=== PATIENT | female | born 1945 | race Two or more races ===

== ENCOUNTER 2018-05-22 11:51 | Inpatient (IN) | payer MEDICARE, OTHER ==
[~2018-05-22] VITALS: Ht 152.4 cm; Wt 76.7 kg
[~2018-05-22 11:51] MED LIST: ASPI325T11 PO; CARV6.2511 PO; DICY10CA3 PO; ESOM40CA PO; FURO40TA4 PO; LEVO100T5 PO; POTA20TA84 PO; PRED5TAB PO; SIMV40TA3 PO; TRAM50TA PO
[2018-05-22 12:55] LABS: BILIRUBIN,URINE NEGATIVE (NEG); CLARITY,URINE CLEAR; COLOR,URINE YELLOW; NITRITE,URINE NEGATIVE (NEG); PROTEIN,URINE NEGATIVE (NEG-TRACE); UROBILINOGEN,URINE 0.2 mg/dL (0.2 mg/dL)
[2018-05-22] MEDS ORDERED: IPRATRPIUM/ALBUTEROL 0.5/2.5MG 3 ML NEBU. NEB ONE (13:00)
[2018-05-22] MEDS ORDERED: ACETAMINOPHEN 500 MG TABLET PO ONE (13:00)
[2018-05-22 13:12] LABS: BACTERIA,URINE 0 /HPF (0-FEW); RBC,URINE >40 /HPF (0-2); SQUAMOUS EPITHELIAL CELL,UR MOD /LPF; WBC,URINE 0 /HPF (0-4)
--- NOTE | 2018-05-22 13:21 | RAD ---
AP and Lateral Views of the Chest 05/22/2018 12:45 PM Indication: COUGH, SHORT OF AIR, FEVER Comparison: Chest radiograph January 18, 2017 Findings: Diffuse interstitial thickening, increased from prior exam noted. Mild central vascular congestion apical lucency may be present. Mild peribronchial cuffing is present. No focal consolidative infiltrate is seen. Heart size is top normal. No pneumothorax or definitive effusion is seen. No acute osseous changes identified. IMPRESSION: Interval diffuse increase in interstitial thickening. Findings could represent progression of interstitial disease, superimposed edema, or interstitial pneumonia. Radiographic follow-up recommended. Electronically signed by: Urbano Orr MD (05/22/2018 1:17 PM) [id number]
--- NOTE | 2018-05-22 13:30 | PHYS DOC ---
Past Medical History Past Medical History: CHF, GERD, High Cholesterol, Heart Disease, Hypertension , Other Additional Past Medical Histor: Thyroid Past Surgical History: No Surgical History Alcohol Use: None Drug Use: None Adult General Chief Complaint Chief Complaint: COUGH HPI HPI Patient is a 72 year old female presented to ER today for evaluation of cough, congestion, fever and chill for about 5 days. Patient also complaint of body ache. She denies any abdominal pain, no chest pain, no nausea vomiting. Patient went to see her family doctor today, who sent here for evaluation. Patient complaintS of flulike symptoms, jointS pain. She denies any headache. Review of Systems Review of Systems Constitutional: POSITIVE FOR fever or chills [] Eyes: Denies change in visual acuity, redness, or eye pain [] HENT: Denies nasal congestion or sore throat [] Respiratory: positive for cough and shortness of breath [] Cardiovascular: No additional information not addressed in HPI [] GI: Denies abdominal pain, nausea, vomiting, bloody stools or diarrhea [] : Denies dysuria or hematuria [] Musculoskeletal: POSITIVE FOR JOINT PAIN AND BODYACHE. Integument: Denies rash or skin lesions [] Neurologic: Denies headache, focal weakness or sensory changes [] Endocrine: Denies polyuria or polydipsia [] All other systems were reviewed and found to be within normal limits, except as documented in this note. Current Medications Current Medications Current Medications Medications (Trade) Dose Ordered Sig/Kailey Start Time Stop Time Status Last Admin Dose Admin Acetaminophen (Tylenol) 650 mg PRN Q4HRS PRN 05/22/18 15:00 05/23/18 14:59 UNV Albuterol/ Ipratropium (Duoneb) 3 ml RTQID 05/22/18 16:00 05/23/18 15:59 UNV Azithromycin 250 ml @ 250 mls/hr 1X ONCE 05/22/18 14:00 05/22/18 14:59 DC 05/22/18 14:30 250 MLS/HR Ceftriaxone Sodium (Rocephin) 1 gm 1X ONCE 05/22/18 14:00 05/22/18 14:01 DC 05/22/18 14:29 1 GM Ondansetron HCl (Zofran) 4 mg PRN Q8HRS PRN 05/22/18 15:00 05/23/18 14:59 UNV Sodium Chloride 1,000 ml @ 1,000 mls/hr 1X ONCE 05/22/18 15:00 05/22/18 15:59 UNV Allergies Allergies Allergies Coded Allergies Type Severity Reaction Last Updated Verified No Known Drug Allergies 10/13/13 No Physical Exam Physical Exam Constitutional: Well developed, well nourished, no acute distress, non-toxic appearance. [] HENT: Normocephalic, atraumatic, bilateral external ears normal, oropharynx moist, no oral exudates, nose WITH CLEAR DISCHARGE. Eyes: PERRLA, EOMI, conjunctiva normal, no discharge. [] Neck: Normal range of motion, no tenderness, supple, no stridor. [] Cardiovascular:Heart rate regular rhythm, no murmur [] Lungs & Thorax: CRACKLES AT THE BASES OF LUNG BILATERALLY WITH EXPIRATORY WHEEZING. Abdomen: Bowel sounds normal, soft, no tenderness, no masses, no pulsatile masses. [] Skin: Warm, dry, no erythema, no rash. [] Back: No tenderness, no CVA tenderness. [] Extremities: No tenderness, no cyanosis, no clubbing, ROM intact, no edema. [] Neurologic: Alert and oriented X 3, normal motor function, normal sensory function, no focal deficits noted. [] Psychologic: Affect normal, judgement normal, mood normal. [] Current Patient Data Vital Signs Vital Signs Date Time Temp Pulse Resp B/P (MAP) Pulse Ox O2 Delivery O2 Flow Rate FiO2 05/22/18 13:05 99 Room Air 05/22/18 12:30 98.2 92 20 111/67 (82) 98.2 Lab Values Laboratory Tests Test 05/22/18 12:38 05/22/18 13:16 05/22/18 13:30 Urine Collection Type Unknown Urine Color Yellow Urine Clarity Clear Urine pH 8.0 Urine Specific [place] 1.015 Urine Protein Negative mg/dL (NEG-TRACE) Urine Glucose (UA) Negative mg/dL (NEG) Urine Ketones (Stick) Negative mg/dL (NEG) Urine Blood Moderate (NEG) Urine Nitrite Negative (NEG) Urine Bilirubin Negative (NEG) Urine Urobilinogen Dipstick 0.2 mg/dL (0.2 mg/dL) Urine Leukocyte Esterase Negative (NEG) Urine RBC >40 /HPF (0-2) Urine WBC 0 /HPF (0-4) Urine Squamous Epithelial Cells Mod /LPF Urine Bacteria 0 /HPF (0-FEW) White Blood Count 19.9 x10^3/uL (4.0-11.0) H Red Blood Count 4.49 x10^6/uL (3.50-5.40) Hemoglobin 12.2 g/dL (12.0-15.5) Hematocrit 36.1 % (36.0-47.0) Mean Corpuscular Volume 80 fL (79-100) Mean Corpuscular Hemoglobin 27 pg (25-35) Mean Corpuscular Hemoglobin Concent 34 g/dL (31-37) Red Cell Distribution Width 15.0 % (11.5-14.5) H Platelet Count 335 x10^3/uL (140-400) Neutrophils (%) (Auto) 83 % (31-73) H Lymphocytes (%) (Auto) 10 % (24-48) L Monocytes (%) (Auto) 5 % (0-9) Eosinophils (%) (Auto) 1 % (0-3) Basophils (%) (Auto) 1 % (0-3) Neutrophils # (Auto) 16.6 x10^3uL (1.8-7.7) H Lymphocytes # (Auto) 2.1 x10^3/uL (1.0-4.8) Monocytes # (Auto) 1.0 x10^3/uL (0.0-1.1) Eosinophils # (Auto) 0.1 x10^3/uL (0.0-0.7) Basophils # (Auto) 0.2 x10^3/uL (0.0-0.2) Platelet Estimate Pending Prothrombin Time 13.3 SEC (11.7-14.0) Prothrombin Time INR 1.0 (0.8-1.1) PTT 20 SEC (24-38) L Sodium Level 138 mmol/L (136-145) Potassium Level 3.5 mmol/L (3.5-5.1) Chloride Level 103 mmol/L (98-107) Carbon Dioxide Level 25 mmol/L (21-32) Anion Gap 10 (6-14) Blood Urea Nitrogen 14 mg/dL (7-20) Creatinine 0.6 mg/dL (0.6-1.0) Estimated GFR (Cockcroft-Gault) 97.7 BUN/Creatinine Ratio 23 (6-20) H Glucose Level 123 mg/dL (70-99) H Lactic Acid Level 0.9 mmol/L (0.4-2.0) Calcium Level 8.6 mg/dL (8.5-10.1) Total Bilirubin 0.4 mg/dL (0.2-1.0) Aspartate Amino Transferase (AST) 22 U/L (15-37) Alanine Aminotransferase (ALT) 36 U/L (14-59) Alkaline Phosphatase 178 U/L (46-116) H Troponin I Quantitative < 0.017 ng/mL (0.000-0.055) Total Protein 7.5 g/dL (6.4-8.2) Albumin 2.5 g/dL (3.4-5.0) L Albumin/Globulin Ratio 0.5 (1.0-1.7) L Lipase 95 U/L (73-393) Influenza Type A Antigen Negative (NEGATIVE) Influenza Type B Antigen Negative (NEGATIVE) Laboratory Tests 05/22/18 13:16 Laboratory Tests 05/22/18 13:16 EKG EKG [] Radiology/Procedures Radiology/Procedures [] IMAGING REPORT Signed PATIENT: BIRDIE SORIANO ACCOUNT: [id number] : 1945 LOCATION: ER AGE: 72 SEX: F EXAM STATUS: REG ER ORD. PHYSICIAN: ANUJ FIGUEROA DO REASON: cough, fever, soa PROCEDURE: CHEST PA & LATERAL AP and Lateral Views of the Chest 05/22/2018 12:45 PM Indication: COUGH, SHORT OF AIR, FEVER Comparison: Chest radiograph January 18, 2017 Findings: Diffuse interstitial thickening, increased from prior exam noted. Mild central vascular congestion apical lucency may be present. Mild peribronchial cuffing is present. No focal consolidative infiltrate is seen. Heart size is top normal. No pneumothorax or definitive effusion is seen. No acute osseous changes identified. IMPRESSION: Interval diffuse increase in interstitial thickening. Findings could represent progression of interstitial disease, superimposed edema, or interstitial pneumonia. Radiographic follow-up recommended. Electronically signed by: Urbano Gasca MD (05/22/2018 1:17 PM) [facility] DICTATED and SIGNED BY: URBANO GASCA MD DATE: 05/22/18 2082 Course & Med Decision Making Course & Med Decision Making Pertinent Labs and Imaging studies reviewed. (See chart for details) [] Dragon Disclaimer Dragon Disclaimer This electronic medical record was generated, in whole or in part, using a voice recognition dictation system. Departure Departure Impression: Primary Impression: CAP (community acquired pneumonia) Disposition: ADMITTED INPATIENT Admitting Physician: Other (Dr. Jermaine Mcgovern) Condition: STABLE Referrals: UNKNOWN PCP NAME (PCP) ANUJ FIGUEROA DO May 22, 2018 13:30
[2018-05-22 13:35] LABS: BASO # 0.2 x10^3/uL (0.0-0.2); BASO % 1 % (0-3); EOS # 0.1 x10^3/uL (0.0-0.7); EOS % 1 % (0-3); HEMATOCRIT 36.1 % (36.0-47.0); HEMOGLOBIN 12.2 g/dL (12.0-15.5); LYMPH # 2.1 x10^3/uL (1.0-4.8); LYMPH % 10 % (24-48); MEAN CORPUSCULAR HEMOGLOBIN 27 pg (25-35); MEAN CORPUSCULAR HGB CONC 34 g/dL (31-37); MEAN CORPUSCULAR VOLUME 80 fL (79-100); MONO % 5 % (0-9); NEUT # 16.6 x10^3uL (1.8-7.7); NEUT % 83 % (31-73); PLATELET COUNT 335 x10^3/uL (140-400); RED BLOOD COUNT 4.49 x10^6/uL (3.50-5.40); WHITE BLOOD COUNT 19.9 x10^3/uL (4.0-11.0)
--- NOTE | 2018-05-22 13:35 | EKG ---
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
[2018-05-22 13:45] LABS: PROTHROMBIN TIME PATIENT 13.3 SEC (11.7-14.0)
[2018-05-22 13:55] LABS: CALCIUM 8.6 mg/dL (8.5-10.1); CREATININE 0.6 mg/dL (0.6-1.0); GFR 97.7; POTASSIUM 3.5 mmol/L (3.5-5.1)
[2018-05-22 13:58] LABS: INFLUENZA A PATIENT NEGATIVE (NEGATIVE); INFLUENZA B PATIENT NEGATIVE (NEGATIVE)
[2018-05-22] MEDS ORDERED: cefTRIAXone IV Push 1 GM VIAL. IVP ONE (14:00)
[2018-05-22] MEDS ORDERED: AZITHRMYCN 500MG IVPB FOR OMNI 250 ML IV ONE (14:00)
[2018-05-22 14:07] LABS: ALBUMIN 2.5 g/dL (3.4-5.0); ALBUMIN/GLOBULIN RATIO 0.5 (1.0-1.7); TOTAL BILIRUBIN 0.4 mg/dL (0.2-1.0); TOTAL PROTEIN 7.5 g/dL (6.4-8.2)
[2018-05-22] MEDS ORDERED: ACETAMINOPHEN 325 MG TABLET. PO PRN (15:00)
[2018-05-22] MEDS ORDERED: IV NORMAL SALINE 1000ML BAG 1,000 ML IV ONE (15:00)
[2018-05-22] MEDS ORDERED: ONDANSETRON PF 4 MG/2 ML VIAL. IV PRN ×2 (15:00→17:15)
[2018-05-22 15:31] LABS: % BANDS 1 % (0-9); % LYMPHS 11 % (24-48); % SEGS 88 % (35-66); OVALOCYTES OCC; PLT ESTIMATE ADEQUATE (ADEQUATE); POLYCHROMASIA SLIGHT; SCHISTOCYTES OCC
[2018-05-22] MEDS: IPRATRPIUM/ALBUTEROL 0.5/2.5MG 3 ML NEBU. NEB SCH ×2 (15:57→20:04)
[2018-05-22] MEDS ORDERED: MORPHINE SULFATE 4 MG/ML VIAL. IV PRN (17:15)
[2018-05-22] MEDS ORDERED: MAGNESIUM HYDROXIDE 2,400 MG/30 ML ORAL.SUSP. PO PRN (17:15)
[2018-05-22] MEDS ORDERED: BISACODYL 10 MG SUPP.RECT. PR PRN (17:15)
[2018-05-22] MEDS ORDERED: DEXTROSE 50% 25 GM / 50ML DISP.SYRIN. IV PRN (17:30)
--- NOTE | 2018-05-22 17:31 | PDOC1 ---
History and Physical Date of Admission Date of Admission DATE: 05/22/18 TIME: 16:57 Identification/Chief Complaint Chief Complaint Cough, shortness of breath Source Source: Patient History of Present Illness History of Present Illness 72 yo female w/ PMHx HTN presented to ER today for evaluation of cough , congestion, fever and chill for about 5 days. Patient also complaint of body ache. She denies any abdominal pain, no chest pain, no nausea vomiting. Patient went to see her family doctor today, who sent here for evaluation. Patient complains of flu-like symptoms, joint pain. She denies any headache. She had negative rapid flu CXR shows bilateral interstitial pattern. WBC elevated, tachycardic. Past Medical History Cardiovascular: HTN Pulmonary: No pertinent hx GI: No pertinent hx Heme/Onc: No pertinent hx Hepatobiliary: No pertinent hx Psych: No pertinent hx Rheumatologic: No pertinent hx Infectious disease: No pertinent hx ENT: No pertinent hx Renal/: No pertinent hx Endocrine: No pertinent hx Dermatology: No pertinent hx Past Surgical History Past Surgical History: No pertinent history Family History Family History: Heart Disease, High Cholestrol, Hypertension Social History Smoke: No ALCOHOL: none Drugs: None Current Problem List Problem List Problems Medical Problems: (1) CAP (community acquired pneumonia) Status: Acute Current Medications Current Medications Current Medications Albuterol/ Ipratropium (Duoneb) 3 ml 1X ONCE NEB Last administered on at 13:05; Start 05/22/18 at 13:00; Stop 05/22/18 at 13:01; Status DC Acetaminophen (Tylenol) 1,000 mg 1X ONCE PO Last administered on 05/22/18at 13: 30; Start 05/22/18 at 13:00; Stop 05/22/18 at 13:01; Status DC Azithromycin 250 ml @ 250 mls/hr 1X ONCE IV Last administered on 05/22/18at 14 :30; Start 05/22/18 at 14:00; Stop 05/22/18 at 14:59; Status DC Ceftriaxone Sodium (Rocephin) 1 gm 1X ONCE IVP Last administered on 05/22/18at 14:29; Start 05/22/18 at 14:00; Stop 05/22/18 at 14:01; Status DC Ondansetron HCl (Zofran) 4 mg PRN Q8HRS PRN IV NAUSEA/VOMITING; Start 1/10/19 at 15:00; Stop 05/23/18 at 14:59 Sodium Chloride 1,000 ml @ 100 mls/hr Q10H IV ; Start 05/22/18 at 14:51; Stop 05/23/18 at 14:50 Acetaminophen (Tylenol) 650 mg PRN Q4HRS PRN PO FEVER; Start 05/22/18 at 15:00 ; Stop 05/23/18 at 14:59 Albuterol/ Ipratropium (Duoneb) 3 ml RTQID NEB Last administered on 05/22/18at 15:57; Start 05/22/18 at 16:00; Stop 05/23/18 at 15:59 Sodium Chloride 1,000 ml @ 1,000 mls/hr 1X ONCE IV Last administered on at 15:22; Start 05/22/18 at 15:00; Stop 05/22/18 at 15:59; Status DC Active Scripts Active Reported Aspirin Ec (Aspirin) 325 Mg Tablet.dr 325 Mg PO DAILY Carvedilol 6.25 Mg Tablet 6.25 Mg PO BID Dicyclomine Hcl 10 Mg Capsule 10 Mg PO DAILY Simvastatin 40 Mg Tablet 40 Mg PO DAILY Levothyroxine Sodium 100 Mcg Tablet 100 Mcg PO DAILYAC Nexium Capsule (Esomeprazole Magnesium) 40 Mg Capsule.dr 40 Mg PO DAILYAC K-Tab ER (Potassium Chloride) 20 Meq Tablet.er 20 Meq PO DAILY Furosemide 40 Mg Tablet 40 Mg PO DAILY Tramadol Hcl 50 Mg Tablet 50 Mg PO DAILY PRN Tramadol Hcl 50 Mg Tablet 50 Mg PO DAILY PRN Prednisone 5 Mg Tablet 5 Mg PO DAILY Allergies Allergies: Coded Allergies: No Known Drug Allergies (Unverified , 10/13/13) ROS General: YES: Chills, Fatigue, Malaise; No: Night Sweats, Appetite, Other PSYCHOLOGICAL ROS: No: Anxiety, Behavioral Disorder, Concentration difficultie , Decreased libido, Depression, Disorientation, Hallucinations, Hostility, Irritablity, Memory difficulties, Mood Swings, Obsessive thoughts, Physical abuse, Sexual abuse, Sleep disturbances, Suicidal ideation, Other Eyes: No Blurry vision, No Decreased vision, No Double vision, No Dry eyes, No Excessive tearing, No Eye Pain, No Itchy Eyes, No Loss of vision, No Photophobia , No Scotomata, No Uses contacts, No Uses glasses, No Other HEENT: No: Heacaches, Visual Changes, Hearing change, Nasal congestion, Nasal discharge, Oral lesions, Sinus pain, Sore Throat, Epistaxis, Sneezing, Snoring, Tinnitus, Vertigo, Vocal changes, Other ALLERGY AND IMMUNOLOGY: No: Hives, Insect Bite Sensitivity, Itchy/Watery Eyes, Nasal Congestion, Post Nasal Drip, Seasonal Allergies, Other Hematological and Lymphatic: No: Bleeding Problems, Blood Clots, Blood Transfusions, Brusing, Night Sweats, Pallor, Swollen Lymph Nodes, Other ENDOCRINE: No: Breast Changes, Galactorrhea, Hair Pattern Changes, Hot Flashes , Malaise/lethargy, Mood Swings, Palpitations, Polydipsia/polyuria, Skin Changes , Temperature Intolerance, Unexpected Weight Changes, Other Breast: No New/Changing Breast Lumps, No Nipple changes, No Nipple discharge, No Other Respiratory: YES: Cough, Shortness of breath, Sputum Changes; No: Hemoptysis, Orthopnea, Pleuritic Pain, SOB with excertion, Stridor, Tachypnea, Wheezing, Other Cardiovascular: yes Palpitations; No Chest Pain, No Orthopnea, No Paroxysmal Noc. Dyspnea, No Edema, No Lt Headedness, No Other Gastrointestinal: Yes Nausea; No Vomiting, No Abdominal Pain, No Diarrhea, No Constipation, No Melena, No Hematochezia, No Other Genitourinary: No Dysuria, No Frequency, No Incontinence, No Hematuria, No Retention, No Discharge, No Urgency, No Pain, No Flank Pain, No Other, No , No , No , No , No , No , No Musculoskeletal: No Gait Disturbance, No Joint Pain, No Joint Stiffness, No Joint Swelling, No Muscle Pain, No Muscular Weakness, No Pain In:, No Swelling In:, No Other Neurological: No Behavorial Changes, No Bowel/Bladder ControlChng, No Confusion , No Dizziness, No Gait Disturbance, No Headaches, No Impaired Coord/balance, No Memory Loss, No Numbness/Tingling, No Seizures, No Speech Problems, No Tremors, No Visual Changes, No Weakness, No Other Skin: No Dry Skin, No Eczema, No Hair Changes, No Lumps, No Mole Changes, No Mottling, No Nail Changes, No Pruritus, No Rash, No Skin Lesion Changes, No Other, No Acne Physical Exam General: Alert, Oriented X3, Cooperative, No acute distress HEENT: Atraumatic, PERRLA, EOMI, Mucous membr. moist/pink Lungs: Other (Bilateral crackles, decreased basilar air sounds) Heart: S1S2, RRR, no gallops, no murmurs Abdomen: Normal bowel sounds, Soft, No tenderness, No hepatosplenomegaly, No masses Extremities: No clubbing, No cyanosis, No edema, Normal pulses, No tenderness/ swelling Skin: No rashes, No breakdown, No significant lesion Neuro: Normal gait, Normal speech, Strength at 5/5 X4 ext, Normal tone, Sensation intact, Cranial nerves 3-12 NL, Reflexes 2+ Psych/Mental Status: Mental status NL, Mood NL Vitals Vitals Vital Signs Date Time Temp Pulse Resp B/P (MAP) Pulse Ox O2 Delivery O2 Flow Rate FiO2 05/22/18 15:57 99 Room Air 05/22/18 12:30 98.2 92 20 111/67 (82) 98.2 Labs Labs Laboratory Tests Test 05/22/18 12:38 05/22/18 13:16 05/22/18 13:30 Urine Collection Type Unknown Urine Color Yellow Urine Clarity Clear Urine pH 8.0 Urine Specific [place] 1.015 Urine Protein Negative mg/dL (NEG-TRACE) Urine Glucose (UA) Negative mg/dL (NEG) Urine Ketones (Stick) Negative mg/dL (NEG) Urine Blood Moderate (NEG) Urine Nitrite Negative (NEG) Urine Bilirubin Negative (NEG) Urine Urobilinogen Dipstick 0.2 mg/dL (0.2 mg/dL) Urine Leukocyte Esterase Negative (NEG) Urine RBC >40 /HPF (0-2) Urine WBC 0 /HPF (0-4) Urine Squamous Epithelial Cells Mod /LPF Urine Bacteria 0 /HPF (0-FEW) White Blood Count 19.9 x10^3/uL (4.0-11.0) Red Blood Count 4.49 x10^6/uL (3.50-5.40) Hemoglobin 12.2 g/dL (12.0-15.5) Hematocrit 36.1 % (36.0-47.0) Mean Corpuscular Volume 80 fL (79-100) Mean Corpuscular Hemoglobin 27 pg (25-35) Mean Corpuscular Hemoglobin Concent 34 g/dL (31-37) Red Cell Distribution Width 15.0 % (11.5-14.5) Platelet Count 335 x10^3/uL (140-400) Neutrophils (%) (Auto) 83 % (31-73) Lymphocytes (%) (Auto) 10 % (24-48) Monocytes (%) (Auto) 5 % (0-9) Eosinophils (%) (Auto) 1 % (0-3) Basophils (%) (Auto) 1 % (0-3) Neutrophils # (Auto) 16.6 x10^3uL (1.8-7.7) Lymphocytes # (Auto) 2.1 x10^3/uL (1.0-4.8) Monocytes # (Auto) 1.0 x10^3/uL (0.0-1.1) Eosinophils # (Auto) 0.1 x10^3/uL (0.0-0.7) Basophils # (Auto) 0.2 x10^3/uL (0.0-0.2) Segmented Neutrophils % 88 % (35-66) Band Neutrophils % 1 % (0-9) Lymphocytes % 11 % (24-48) Platelet Estimate Adequate (ADEQUATE) Large Platelets Occ Polychromasia Slight Ovalocytes Occ Schistocytes Occ Prothrombin Time 13.3 SEC (11.7-14.0) Prothromb Time International Ratio 1.0 (0.8-1.1) Activated Partial Thromboplast Time 20 SEC (24-38) Sodium Level 138 mmol/L (136-145) Potassium Level 3.5 mmol/L (3.5-5.1) Chloride Level 103 mmol/L (98-107) Carbon Dioxide Level 25 mmol/L (21-32) Anion Gap 10 (6-14) Blood Urea Nitrogen 14 mg/dL (7-20) Creatinine 0.6 mg/dL (0.6-1.0) Estimated GFR (Cockcroft-Gault) 97.7 BUN/Creatinine Ratio 23 (6-20) Glucose Level 123 mg/dL (70-99) Lactic Acid Level 0.9 mmol/L (0.4-2.0) Calcium Level 8.6 mg/dL (8.5-10.1) Total Bilirubin 0.4 mg/dL (0.2-1.0) Aspartate Amino Transf (AST/SGOT) 22 U/L (15-37) Alanine Aminotransferase (ALT/SGPT) 36 U/L (14-59) Alkaline Phosphatase 178 U/L (46-116) Troponin I Quantitative < 0.017 ng/mL (0.000-0.055) Total Protein 7.5 g/dL (6.4-8.2) Albumin 2.5 g/dL (3.4-5.0) Albumin/Globulin Ratio 0.5 (1.0-1.7) Lipase 95 U/L (73-393) Influenza Type A Antigen Negative (NEGATIVE) Influenza Type B Antigen Negative (NEGATIVE) Laboratory Tests Test 05/22/18 12:38 05/22/18 13:16 05/22/18 13:30 Urine Collection Type Unknown Urine Color Yellow Urine Clarity Clear Urine pH 8.0 Urine Specific [place] 1.015 Urine Protein Negative mg/dL (NEG-TRACE) Urine Glucose (UA) Negative mg/dL (NEG) Urine Ketones (Stick) Negative mg/dL (NEG) Urine Blood Moderate (NEG) Urine Nitrite Negative (NEG) Urine Bilirubin Negative (NEG) Urine Urobilinogen Dipstick 0.2 mg/dL (0.2 mg/dL) Urine Leukocyte Esterase Negative (NEG) Urine RBC >40 /HPF (0-2) Urine WBC 0 /HPF (0-4) Urine Squamous Epithelial Cells Mod /LPF Urine Bacteria 0 /HPF (0-FEW) White Blood Count 19.9 x10^3/uL (4.0-11.0) Red Blood Count 4.49 x10^6/uL (3.50-5.40) Hemoglobin 12.2 g/dL (12.0-15.5) Hematocrit 36.1 % (36.0-47.0) Mean Corpuscular Volume 80 fL (79-100) Mean Corpuscular Hemoglobin 27 pg (25-35) Mean Corpuscular Hemoglobin Concent 34 g/dL (31-37) Red Cell Distribution Width 15.0 % (11.5-14.5) Platelet Count 335 x10^3/uL (140-400) Neutrophils (%) (Auto) 83 % (31-73) Lymphocytes (%) (Auto) 10 % (24-48) Monocytes (%) (Auto) 5 % (0-9) Eosinophils (%) (Auto) 1 % (0-3) Basophils (%) (Auto) 1 % (0-3) Neutrophils # (Auto) 16.6 x10^3uL (1.8-7.7) Lymphocytes # (Auto) 2.1 x10^3/uL (1.0-4.8) Monocytes # (Auto) 1.0 x10^3/uL (0.0-1.1) Eosinophils # (Auto) 0.1 x10^3/uL (0.0-0.7) Basophils # (Auto) 0.2 x10^3/uL (0.0-0.2) Segmented Neutrophils % 88 % (35-66) Band Neutrophils % 1 % (0-9) Lymphocytes % 11 % (24-48) Platelet Estimate Adequate (ADEQUATE) Large Platelets Occ Polychromasia Slight Ovalocytes Occ Schistocytes Occ Prothrombin Time 13.3 SEC (11.7-14.0) Prothromb Time International Ratio 1.0 (0.8-1.1) Activated Partial Thromboplast Time 20 SEC (24-38) Sodium Level 138 mmol/L (136-145) Potassium Level 3.5 mmol/L (3.5-5.1) Chloride Level 103 mmol/L (98-107) Carbon Dioxide Level 25 mmol/L (21-32) Anion Gap 10 (6-14) Blood Urea Nitrogen 14 mg/dL (7-20) Creatinine 0.6 mg/dL (0.6-1.0) Estimated GFR (Cockcroft-Gault) 97.7 BUN/Creatinine Ratio 23 (6-20) Glucose Level 123 mg/dL (70-99) Lactic Acid Level 0.9 mmol/L (0.4-2.0) Calcium Level 8.6 mg/dL (8.5-10.1) Total Bilirubin 0.4 mg/dL (0.2-1.0) Aspartate Amino Transf (AST/SGOT) 22 U/L (15-37) Alanine Aminotransferase (ALT/SGPT) 36 U/L (14-59) Alkaline Phosphatase 178 U/L (46-116) Troponin I Quantitative < 0.017 ng/mL (0.000-0.055) Total Protein 7.5 g/dL (6.4-8.2) Albumin 2.5 g/dL (3.4-5.0) Albumin/Globulin Ratio 0.5 (1.0-1.7) Lipase 95 U/L (73-393) Influenza Type A Antigen Negative (NEGATIVE) Influenza Type B Antigen Negative (NEGATIVE) Images Images CXR - Interval diffuse increase in interstitial thickening. Findings could represent progression of interstitial disease, superimposed edema, or interstitial pneumonia. Radiographic follow-up recommended. VTE Prophylaxis Ordered VTE Prophylaxis Devices: No VTE Pharmacological Prophylaxi: Yes Assessment/Plan Assessment/Plan A/P: Pneumonia - CAP by history, however it is bilateral, looks interstitial, could also be CHF. needs atypical coverage, zithromax ok and rocephin as well as Tamiflu. consult pulm for abnormal CXR Sepsis - with leukocytosis, tachycardia, given early antibiotics and fluids for pneumonia, however, her BP is high, will give lasix now. Hypoxia - likely from pneumonia/flu/CHF, will diurese. Consult pulm. Wean O2 as tolerated HTN - on coreg, will cont. She denies CHF at this time, however on statin, lasix , and BB she likely has a cardiomyopathy of some sort HLD - cont statin Hyperglycemia - she denies h/o DM, glucose checks, low sliding scale FEN - Cardiac diet PPX - heparin FULL CODE Inpatient for atypical pneumonia at least 2 midnights. FINA KOENIG MD May 22, 2018 17:31
[2018-05-22] MEDS ORDERED: ONDA4TAB12 PO (17:57)
[2018-05-22] MEDS ORDERED: SIMV20TA3 PO (17:57)
[2018-05-22] MEDS ORDERED: HYDR-3164 PO (17:57)
[2018-05-22] MEDS ORDERED: FURO20TA3 PO (17:57)
[2018-05-22] MEDS ORDERED: PANT20TA2 PO (17:57)
[2018-05-22 18:11] VITALS: BP 113/53
[2018-05-22] MEDS: IV NORMAL SALINE 1000ML BAG 1,000 ML IV SCH (18:12)
[2018-05-22] MEDS: FUROSEMIDE 40 MG/4 ML VIAL. IVP SCH (18:18)
[2018-05-22] MEDS: CARVEDILOL 6.25 MG TABLET. PO SCH (18:20)
[2018-05-22] MEDS: OSELTAMIVIR 30 MG CAPSULE PO SCH (18:21)
[2018-05-22] MEDS: HEPARIN for SUB-Q USE 5,000 UNIT/ML VIAL. SQ SCH (18:22)
[2018-05-22 19:00] VITALS: BP 128/72
--- NOTE | 2018-05-22 19:31 | NUR ---
Pt arrived per w/c at 1720 as admit to room 534. Pt positioned for comfort and tele placed. Pt's daughter Claudia contacted and she stated her sister Shama would be coming here tonight.Awaiting pt's daughter arrival to assist with admission questions.
[2018-05-22] MEDS: SENNOSIDES/DOCUSATE 8.6/50MG TABLET. PO SCH (22:14)
[2018-05-22] MEDS: SIMVASTATIN 40 MG TABLET. PO SCH (22:14)
[2018-05-22 23:05] VITALS: BP 117/71
--- NOTE | 2018-05-22 23:45 | NUR ---
patient speaks Togolese and was unable to answer admission questions.The nurse called the daughter who answered the admission questions through the phone.
[2018-05-23] MEDS: IV NORMAL SALINE 1000ML BAG 1,000 ML IV SCH (00:38)
[2018-05-23] MEDS: HEPARIN for SUB-Q USE 5,000 UNIT/ML VIAL. SQ SCH ×2 (00:44→06:17)
[2018-05-23 03:06] VITALS: BP 144/76
[2018-05-23] MEDS: LEVOTHYROXINE 100 MCG TABLET PO SCH (06:12)
[2018-05-23] MEDS: AZITHROMYCIN 500 MG in IV NORMAL SALINE 250ML 250 ML IV SCH (06:42)
[2018-05-23 07:00] VITALS: BP 119/51
[2018-05-23 07:16] LABS: BASO # 0.1 x10^3/uL (0.0-0.2); BASO % 1 % (0-3); EOS # 0.3 x10^3/uL (0.0-0.7); EOS % 3 % (0-3); HEMOGLOBIN 11.7 g/dL (12.0-15.5); LYMPH # 2.4 x10^3/uL (1.0-4.8); LYMPH % 22 % (24-48); MEAN CORPUSCULAR HEMOGLOBIN 28 pg (25-35); MEAN CORPUSCULAR HGB CONC 34 g/dL (31-37); MEAN CORPUSCULAR VOLUME 80 fL (79-100); MONO # 0.6 x10^3/uL (0.0-1.1); MONO % 6 % (0-9); NEUT # 7.5 x10^3uL (1.8-7.7); NEUT % 69 % (31-73); PLATELET COUNT 338 x10^3/uL (140-400); RED BLOOD COUNT 4.24 x10^6/uL (3.50-5.40); RED CELL DISTRIBUTION WIDTH 15.3 % (11.5-14.5); WHITE BLOOD COUNT 10.9 x10^3/uL (4.0-11.0)
[2018-05-23] MEDS: IPRATRPIUM/ALBUTEROL 0.5/2.5MG 3 ML NEBU. NEB SCH ×4 (07:25→20:51)
[2018-05-23 07:39] LABS: CALCIUM 7.9 mg/dL (8.5-10.1); CREATININE 0.5 mg/dL (0.6-1.0); GFR 120.6; POTASSIUM 3.2 mmol/L (3.5-5.1)
[2018-05-23] MEDS ORDERED: INSULIN LISPRO 300 UNITS/3 ML INSULN.PEN. SQ SCH (08:00)
[2018-05-23] MEDS ORDERED: POTASSIUM CHLORIDE 20 MEQ TABLET.ER. PO SCH (08:00)
[2018-05-23] MEDS: FUROSEMIDE 40 MG/4 ML VIAL. IVP SCH (09:00)
[2018-05-23] MEDS: OSELTAMIVIR 30 MG CAPSULE PO SCH (09:19)
[2018-05-23] MEDS: PANTOPRAZOLE 40 MG TABLET.DR. PO SCH (09:19)
[2018-05-23] MEDS: ASPIRIN ENTERIC COATED 325 MG TABLET.DR. PO SCH (09:19)
[2018-05-23] MEDS: CARVEDILOL 6.25 MG TABLET. PO SCH ×2 (09:19→17:00)
[2018-05-23] MEDS: DICYCLOMINE HCL 10 MG CAPSULE PO SCH (09:20)
[2018-05-23] MEDS: cefTRIAXone IV Push 1 GM VIAL. IVP SCH (09:20)
[2018-05-23] MEDS: SENNOSIDES/DOCUSATE 8.6/50MG TABLET. PO SCH ×2 (09:20→22:09)
[2018-05-23] MEDS: POTASSIUM CHLORIDE 20 MEQ TABLET.ER. PO SCH (09:45)
[2018-05-23] MEDS ORDERED: guaiFENesin DM 200MG/20MG 10 ML SYRUP PO PRN (09:45)
[2018-05-23 11:11] VITALS: BP 126/75
--- NOTE | 2018-05-23 11:25 | CONS ---
DATE OF CONSULTATION: ATTENDING PHYSICIAN:. Dr. Mcgovern. REASON FOR CONSULTATION: Abnormal chest x-ray, cough. HISTORY OF PRESENT ILLNESS: The patient is a 72-year-old female who does not speak much Tajik. She was brought into the hospital for a persistent cough. She has some colored sputum production as well and some subjective fever and chills for the last 5 days. She has generalized aches as well. No headaches, no nausea, vomiting, no diarrhea. The patient had a chest x-ray, which was reviewed by me and shows faint interstitial infiltrates. I have also reviewed an x-ray on her from 01/18/2017, and there were bilateral diffuse interstitial infiltrates at that time as well. The patient was started on antibiotic Rocephin and Zithromax, and I have been asked to see her for further evaluation. PAST MEDICAL HISTORY: Questionable interstitial lung disease, history of hypertension. PAST SURGICAL HISTORY: No recent surgeries. ALLERGIES: None. FAMILY HISTORY: Noncontributory to lungs. SOCIAL HISTORY: Nonsmoker. CURRENT MEDICATIONS: All reviewed as listed in the MRAD. PHYSICAL EXAMINATION: VITAL SIGNS: Reviewed. She is afebrile. Blood pressure stable, pulse ox 92% on 1 liter. HEENT: Sclerae nonicteric. NECK: Supple. LUNGS: With few crackles at the bases posteriorly. CARDIOVASCULAR: Regular rate and rhythm. ABDOMEN: Soft, nontender. EXTREMITIES: With no pitting edema. LABORATORY DATA: Reviewed. White cell count 19.9, hemoglobin 11.7, platelets are 338. Influenza screen is negative. IMPRESSION: 1. Persistent cough for the last 5 days with flu-like symptoms. Suspect that she likely has a viral interstitial pneumonia; however, there were interstitial infiltrates present in 2017 and the possibility of underlying interstitial lung disease cannot be ruled out. We will obtain noncontrast CT chest for further evaluation. 2. No significant history of tobacco use. 3. Influenza screen negative. RECOMMENDATIONS: 1. Continue with present antibiotics. 2. Cough suppressant. 3. Diuretics can be decreased, clinically unlikely congestive heart failure. ProBNP is only 174. 4. Noncontrast CT chest for further evaluation and will make recommendation. 5. Discussed with Dr. Mcgovern. TANIA LOPEZ MD DR: SCOTT/jostin JOB#: [id number] / [id number]
--- NOTE | 2018-05-23 11:54 | PDOC ---
PROGRESS NOTES Chief Complaint Chief Complaint Viral interstitial pneumonia- possibility Sepsis-tachycardia, leukocytosis Headache Flu negative Never smoker Leukocytosis Hypokalemia better ? CHF History of Present Illness History of Present Illness Looks sick as a dog, remains tachycardic, headache But flu is negative Appreciate pulmonary Getting Lasix 40 IV twice a day with good diuresis No leg edema, no JVD Sounds nasal Plan: Check echo DC Tamiflu - flu negative Continue IV abx continue IV fluid for now, sepsis, tachycardia Start antihistamine, cough medicine scheduled, DuoNeb's as ordered DC DVT prophylaxis Ibuprofen now then prn for headache Other supportive meds Vitals Vitals Vital Signs Date Time Temp Pulse Resp B/P (MAP) Pulse Ox O2 Delivery O2 Flow Rate FiO2 05/23/18 11:11 97.9 80 18 126/75 (92) 95 Nasal Cannula 1.0 97.9 Physical Exam General: Alert, Oriented X3, Cooperative, No acute distress Heart: Normal S1, Normal S2, Other (tachy, sinus) Lungs: Clear Abdomen: Normal bowel sounds, Soft, No tenderness, No hepatosplenomegaly, No masses Extremities: No clubbing, No cyanosis, No edema, Normal pulses, No tenderness/ swelling Skin: No rashes, No breakdown, No significant lesion Labs LABS Laboratory Tests Test 05/22/18 12:38 05/22/18 13:16 05/22/18 13:30 05/22/18 16:50 Urine Collection Type Unknown Urine Color Yellow Urine Clarity Clear Urine pH 8.0 Urine Specific [place] 1.015 Urine Protein Negative mg/dL (NEG-TRACE) Urine Glucose (UA) Negative mg/dL (NEG) Urine Ketones (Stick) Negative mg/dL (NEG) Urine Blood Moderate (NEG) Urine Nitrite Negative (NEG) Urine Bilirubin Negative (NEG) Urine Urobilinogen Dipstick 0.2 mg/dL (0.2 mg/dL) Urine Leukocyte Esterase Negative (NEG) Urine RBC >40 /HPF (0-2) Urine WBC 0 /HPF (0-4) Urine Squamous Epithelial Cells Mod /LPF Urine Bacteria 0 /HPF (0-FEW) White Blood Count 19.9 x10^3/uL (4.0-11.0) Red Blood Count 4.49 x10^6/uL (3.50-5.40) Hemoglobin 12.2 g/dL (12.0-15.5) Hematocrit 36.1 % (36.0-47.0) Mean Corpuscular Volume 80 fL (79-100) Mean Corpuscular Hemoglobin 27 pg (25-35) Mean Corpuscular Hemoglobin Concent 34 g/dL (31-37) Red Cell Distribution Width 15.0 % (11.5-14.5) Platelet Count 335 x10^3/uL (140-400) Neutrophils (%) (Auto) 83 % (31-73) Lymphocytes (%) (Auto) 10 % (24-48) Monocytes (%) (Auto) 5 % (0-9) Eosinophils (%) (Auto) 1 % (0-3) Basophils (%) (Auto) 1 % (0-3) Neutrophils # (Auto) 16.6 x10^3uL (1.8-7.7) Lymphocytes # (Auto) 2.1 x10^3/uL (1.0-4.8) Monocytes # (Auto) 1.0 x10^3/uL (0.0-1.1) Eosinophils # (Auto) 0.1 x10^3/uL (0.0-0.7) Basophils # (Auto) 0.2 x10^3/uL (0.0-0.2) Segmented Neutrophils % 88 % (35-66) Band Neutrophils % 1 % (0-9) Lymphocytes % 11 % (24-48) Platelet Estimate Adequate (ADEQUATE) Large Platelets Occ Polychromasia Slight Ovalocytes Occ Schistocytes Occ Prothrombin Time 13.3 SEC (11.7-14.0) Prothromb Time International Ratio 1.0 (0.8-1.1) Activated Partial Thromboplast Time 20 SEC (24-38) Sodium Level 138 mmol/L (136-145) Potassium Level 3.5 mmol/L (3.5-5.1) Chloride Level 103 mmol/L (98-107) Carbon Dioxide Level 25 mmol/L (21-32) Anion Gap 10 (6-14) Blood Urea Nitrogen 14 mg/dL (7-20) Creatinine 0.6 mg/dL (0.6-1.0) Estimated GFR (Cockcroft-Gault) 97.7 BUN/Creatinine Ratio 23 (6-20) Glucose Level 123 mg/dL (70-99) Lactic Acid Level 0.9 mmol/L (0.4-2.0) 0.8 mmol/L (0.4-2.0) Calcium Level 8.6 mg/dL (8.5-10.1) Total Bilirubin 0.4 mg/dL (0.2-1.0) Aspartate Amino Transf (AST/SGOT) 22 U/L (15-37) Alanine Aminotransferase (ALT/SGPT) 36 U/L (14-59) Alkaline Phosphatase 178 U/L (46-116) Troponin I Quantitative < 0.017 ng/mL (0.000-0.055) Total Protein 7.5 g/dL (6.4-8.2) Albumin 2.5 g/dL (3.4-5.0) Albumin/Globulin Ratio 0.5 (1.0-1.7) Lipase 95 U/L (73-393) Influenza Type A Antigen Negative (NEGATIVE) Influenza Type B Antigen Negative (NEGATIVE) Test 05/23/18 06:50 05/23/18 09:14 White Blood Count 10.9 x10^3/uL (4.0-11.0) Red Blood Count 4.24 x10^6/uL (3.50-5.40) Hemoglobin 11.7 g/dL (12.0-15.5) Hematocrit 34.0 % (36.0-47.0) Mean Corpuscular Volume 80 fL (79-100) Mean Corpuscular Hemoglobin 28 pg (25-35) Mean Corpuscular Hemoglobin Concent 34 g/dL (31-37) Red Cell Distribution Width 15.3 % (11.5-14.5) Platelet Count 338 x10^3/uL (140-400) Neutrophils (%) (Auto) 69 % (31-73) Lymphocytes (%) (Auto) 22 % (24-48) Monocytes (%) (Auto) 6 % (0-9) Eosinophils (%) (Auto) 3 % (0-3) Basophils (%) (Auto) 1 % (0-3) Neutrophils # (Auto) 7.5 x10^3uL (1.8-7.7) Lymphocytes # (Auto) 2.4 x10^3/uL (1.0-4.8) Monocytes # (Auto) 0.6 x10^3/uL (0.0-1.1) Eosinophils # (Auto) 0.3 x10^3/uL (0.0-0.7) Basophils # (Auto) 0.1 x10^3/uL (0.0-0.2) Sodium Level 140 mmol/L (136-145) Potassium Level 3.2 mmol/L (3.5-5.1) Chloride Level 105 mmol/L (98-107) Carbon Dioxide Level 26 mmol/L (21-32) Anion Gap 9 (6-14) Blood Urea Nitrogen 9 mg/dL (7-20) Creatinine 0.5 mg/dL (0.6-1.0) Estimated GFR (Cockcroft-Gault) 120.6 Glucose Level 107 mg/dL (70-99) Calcium Level 7.9 mg/dL (8.5-10.1) FZ-Mgr-A-Type Natriuretic Peptide 174 pg/mL (0-124) Glucose (Fingerstick) 162 mg/dL (70-99) Review of Systems Review of Systems Sounds nasal, POS FOR headache, cough, congested, no chest pain, no fever, no abdominal pain, no diarrhea, no constipation, no emesis Assessment and Plan Assessmemt and Plan Problems Medical Problems: (1) CAP (community acquired pneumonia) Status: Acute Comment Review of Relevant I have reviewed the following items ca (where applicable) has been applied. Labs Laboratory Tests Test 05/22/18 12:38 05/22/18 13:16 05/22/18 13:30 05/22/18 16:50 Urine Collection Type Unknown Urine Color Yellow Urine Clarity Clear Urine pH 8.0 Urine Specific [place] 1.015 Urine Protein Negative mg/dL (NEG-TRACE) Urine Glucose (UA) Negative mg/dL (NEG) Urine Ketones (Stick) Negative mg/dL (NEG) Urine Blood Moderate (NEG) Urine Nitrite Negative (NEG) Urine Bilirubin Negative (NEG) Urine Urobilinogen Dipstick 0.2 mg/dL (0.2 mg/dL) Urine Leukocyte Esterase Negative (NEG) Urine RBC >40 /HPF (0-2) Urine WBC 0 /HPF (0-4) Urine Squamous Epithelial Cells Mod /LPF Urine Bacteria 0 /HPF (0-FEW) White Blood Count 19.9 x10^3/uL (4.0-11.0) Red Blood Count 4.49 x10^6/uL (3.50-5.40) Hemoglobin 12.2 g/dL (12.0-15.5) Hematocrit 36.1 % (36.0-47.0) Mean Corpuscular Volume 80 fL (79-100) Mean Corpuscular Hemoglobin 27 pg (25-35) Mean Corpuscular Hemoglobin Concent 34 g/dL (31-37) Red Cell Distribution Width 15.0 % (11.5-14.5) Platelet Count 335 x10^3/uL (140-400) Neutrophils (%) (Auto) 83 % (31-73) Lymphocytes (%) (Auto) 10 % (24-48) Monocytes (%) (Auto) 5 % (0-9) Eosinophils (%) (Auto) 1 % (0-3) Basophils (%) (Auto) 1 % (0-3) Neutrophils # (Auto) 16.6 x10^3uL (1.8-7.7) Lymphocytes # (Auto) 2.1 x10^3/uL (1.0-4.8) Monocytes # (Auto) 1.0 x10^3/uL (0.0-1.1) Eosinophils # (Auto) 0.1 x10^3/uL (0.0-0.7) Basophils # (Auto) 0.2 x10^3/uL (0.0-0.2) Segmented Neutrophils % 88 % (35-66) Band Neutrophils % 1 % (0-9) Lymphocytes % 11 % (24-48) Platelet Estimate Adequate (ADEQUATE) Large Platelets Occ Polychromasia Slight Ovalocytes Occ Schistocytes Occ Prothrombin Time 13.3 SEC (11.7-14.0) Prothromb Time International Ratio 1.0 (0.8-1.1) Activated Partial Thromboplast Time 20 SEC (24-38) Sodium Level 138 mmol/L (136-145) Potassium Level 3.5 mmol/L (3.5-5.1) Chloride Level 103 mmol/L (98-107) Carbon Dioxide Level 25 mmol/L (21-32) Anion Gap 10 (6-14) Blood Urea Nitrogen 14 mg/dL (7-20) Creatinine 0.6 mg/dL (0.6-1.0) Estimated GFR (Cockcroft-Gault) 97.7 BUN/Creatinine Ratio 23 (6-20) Glucose Level 123 mg/dL (70-99) Lactic Acid Level 0.9 mmol/L (0.4-2.0) 0.8 mmol/L (0.4-2.0) Calcium Level 8.6 mg/dL (8.5-10.1) Total Bilirubin 0.4 mg/dL (0.2-1.0) Aspartate Amino Transf (AST/SGOT) 22 U/L (15-37) Alanine Aminotransferase (ALT/SGPT) 36 U/L (14-59) Alkaline Phosphatase 178 U/L (46-116) Troponin I Quantitative < 0.017 ng/mL (0.000-0.055) Total Protein 7.5 g/dL (6.4-8.2) Albumin 2.5 g/dL (3.4-5.0) Albumin/Globulin Ratio 0.5 (1.0-1.7) Lipase 95 U/L (73-393) Influenza Type A Antigen Negative (NEGATIVE) Influenza Type B Antigen Negative (NEGATIVE) Test 05/23/18 06:50 05/23/18 09:14 White Blood Count 10.9 x10^3/uL (4.0-11.0) Red Blood Count 4.24 x10^6/uL (3.50-5.40) Hemoglobin 11.7 g/dL (12.0-15.5) Hematocrit 34.0 % (36.0-47.0) Mean Corpuscular Volume 80 fL (79-100) Mean Corpuscular Hemoglobin 28 pg (25-35) Mean Corpuscular Hemoglobin Concent 34 g/dL (31-37) Red Cell Distribution Width 15.3 % (11.5-14.5) Platelet Count 338 x10^3/uL (140-400) Neutrophils (%) (Auto) 69 % (31-73) Lymphocytes (%) (Auto) 22 % (24-48) Monocytes (%) (Auto) 6 % (0-9) Eosinophils (%) (Auto) 3 % (0-3) Basophils (%) (Auto) 1 % (0-3) Neutrophils # (Auto) 7.5 x10^3uL (1.8-7.7) Lymphocytes # (Auto) 2.4 x10^3/uL (1.0-4.8) Monocytes # (Auto) 0.6 x10^3/uL (0.0-1.1) Eosinophils # (Auto) 0.3 x10^3/uL (0.0-0.7) Basophils # (Auto) 0.1 x10^3/uL (0.0-0.2) Sodium Level 140 mmol/L (136-145) Potassium Level 3.2 mmol/L (3.5-5.1) Chloride Level 105 mmol/L (98-107) Carbon Dioxide Level 26 mmol/L (21-32) Anion Gap 9 (6-14) Blood Urea Nitrogen 9 mg/dL (7-20) Creatinine 0.5 mg/dL (0.6-1.0) Estimated GFR (Cockcroft-Gault) 120.6 Glucose Level 107 mg/dL (70-99) Calcium Level 7.9 mg/dL (8.5-10.1) GF-Gus-V-Type Natriuretic Peptide 174 pg/mL (0-124) Glucose (Fingerstick) 162 mg/dL (70-99) Laboratory Tests Test 05/22/18 12:38 05/22/18 13:16 05/22/18 13:30 05/22/18 16:50 Urine Collection Type Unknown Urine Color Yellow Urine Clarity Clear Urine pH 8.0 Urine Specific [place] 1.015 Urine Protein Negative mg/dL (NEG-TRACE) Urine Glucose (UA) Negative mg/dL (NEG) Urine Ketones (Stick) Negative mg/dL (NEG) Urine Blood Moderate (NEG) Urine Nitrite Negative (NEG) Urine Bilirubin Negative (NEG) Urine Urobilinogen Dipstick 0.2 mg/dL (0.2 mg/dL) Urine Leukocyte Esterase Negative (NEG) Urine RBC >40 /HPF (0-2) Urine WBC 0 /HPF (0-4) Urine Squamous Epithelial Cells Mod /LPF Urine Bacteria 0 /HPF (0-FEW) White Blood Count 19.9 x10^3/uL (4.0-11.0) Red Blood Count 4.49 x10^6/uL (3.50-5.40) Hemoglobin 12.2 g/dL (12.0-15.5) Hematocrit 36.1 % (36.0-47.0) Mean Corpuscular Volume 80 fL (79-100) Mean Corpuscular Hemoglobin 27 pg (25-35) Mean Corpuscular Hemoglobin Concent 34 g/dL (31-37) Red Cell Distribution Width 15.0 % (11.5-14.5) Platelet Count 335 x10^3/uL (140-400) Neutrophils (%) (Auto) 83 % (31-73) Lymphocytes (%) (Auto) 10 % (24-48) Monocytes (%) (Auto) 5 % (0-9) Eosinophils (%) (Auto) 1 % (0-3) Basophils (%) (Auto) 1 % (0-3) Neutrophils # (Auto) 16.6 x10^3uL (1.8-7.7) Lymphocytes # (Auto) 2.1 x10^3/uL (1.0-4.8) Monocytes # (Auto) 1.0 x10^3/uL (0.0-1.1) Eosinophils # (Auto) 0.1 x10^3/uL (0.0-0.7) Basophils # (Auto) 0.2 x10^3/uL (0.0-0.2) Segmented Neutrophils % 88 % (35-66) Band Neutrophils % 1 % (0-9) Lymphocytes % 11 % (24-48) Platelet Estimate Adequate (ADEQUATE) Large Platelets Occ Polychromasia Slight Ovalocytes Occ Schistocytes Occ Prothrombin Time 13.3 SEC (11.7-14.0) Prothromb Time International Ratio 1.0 (0.8-1.1) Activated Partial Thromboplast Time 20 SEC (24-38) Sodium Level 138 mmol/L (136-145) Potassium Level 3.5 mmol/L (3.5-5.1) Chloride Level 103 mmol/L (98-107) Carbon Dioxide Level 25 mmol/L (21-32) Anion Gap 10 (6-14) Blood Urea Nitrogen 14 mg/dL (7-20) Creatinine 0.6 mg/dL (0.6-1.0) Estimated GFR (Cockcroft-Gault) 97.7 BUN/Creatinine Ratio 23 (6-20) Glucose Level 123 mg/dL (70-99) Lactic Acid Level 0.9 mmol/L (0.4-2.0) 0.8 mmol/L (0.4-2.0) Calcium Level 8.6 mg/dL (8.5-10.1) Total Bilirubin 0.4 mg/dL (0.2-1.0) Aspartate Amino Transf (AST/SGOT) 22 U/L (15-37) Alanine Aminotransferase (ALT/SGPT) 36 U/L (14-59) Alkaline Phosphatase 178 U/L (46-116) Troponin I Quantitative < 0.017 ng/mL (0.000-0.055) Total Protein 7.5 g/dL (6.4-8.2) Albumin 2.5 g/dL (3.4-5.0) Albumin/Globulin Ratio 0.5 (1.0-1.7) Lipase 95 U/L (73-393) Influenza Type A Antigen Negative (NEGATIVE) Influenza Type B Antigen Negative (NEGATIVE) Test 05/23/18 06:50 05/23/18 09:14 White Blood Count 10.9 x10^3/uL (4.0-11.0) Red Blood Count 4.24 x10^6/uL (3.50-5.40) Hemoglobin 11.7 g/dL (12.0-15.5) Hematocrit 34.0 % (36.0-47.0) Mean Corpuscular Volume 80 fL (79-100) Mean Corpuscular Hemoglobin 28 pg (25-35) Mean Corpuscular Hemoglobin Concent 34 g/dL (31-37) Red Cell Distribution Width 15.3 % (11.5-14.5) Platelet Count 338 x10^3/uL (140-400) Neutrophils (%) (Auto) 69 % (31-73) Lymphocytes (%) (Auto) 22 % (24-48) Monocytes (%) (Auto) 6 % (0-9) Eosinophils (%) (Auto) 3 % (0-3) Basophils (%) (Auto) 1 % (0-3) Neutrophils # (Auto) 7.5 x10^3uL (1.8-7.7) Lymphocytes # (Auto) 2.4 x10^3/uL (1.0-4.8) Monocytes # (Auto) 0.6 x10^3/uL (0.0-1.1) Eosinophils # (Auto) 0.3 x10^3/uL (0.0-0.7) Basophils # (Auto) 0.1 x10^3/uL (0.0-0.2) Sodium Level 140 mmol/L (136-145) Potassium Level 3.2 mmol/L (3.5-5.1) Chloride Level 105 mmol/L (98-107) Carbon Dioxide Level 26 mmol/L (21-32) Anion Gap 9 (6-14) Blood Urea Nitrogen 9 mg/dL (7-20) Creatinine 0.5 mg/dL (0.6-1.0) Estimated GFR (Cockcroft-Gault) 120.6 Glucose Level 107 mg/dL (70-99) Calcium Level 7.9 mg/dL (8.5-10.1) TA-Pnh-D-Type Natriuretic Peptide 174 pg/mL (0-124) Glucose (Fingerstick) 162 mg/dL (70-99) Medications Current Medications Albuterol/ Ipratropium (Duoneb) 3 ml 1X ONCE NEB Last administered on at 13:05; Start 05/22/18 at 13:00; Stop 05/22/18 at 13:01; Status DC Acetaminophen (Tylenol) 1,000 mg 1X ONCE PO Last administered on 05/22/18at 13: 30; Start 05/22/18 at 13:00; Stop 05/22/18 at 13:01; Status DC Azithromycin 250 ml @ 250 mls/hr 1X ONCE IV Last administered on 05/22/18at 14 :30; Start 05/22/18 at 14:00; Stop 05/22/18 at 14:59; Status DC Ceftriaxone Sodium (Rocephin) 1 gm 1X ONCE IVP Last administered on 05/22/18at 14:29; Start 05/22/18 at 14:00; Stop 05/22/18 at 14:01; Status DC Ondansetron HCl (Zofran) 4 mg PRN Q8HRS PRN IV NAUSEA/VOMITING; Start 05/22/18 at 15:00; Stop 05/23/18 at 14:59 Sodium Chloride 1,000 ml @ 100 mls/hr Q10H IV Last administered on 05/23/18at 00:38; Start 05/22/18 at 14:51; Stop 05/23/18 at 14:50 Acetaminophen (Tylenol) 650 mg PRN Q4HRS PRN PO FEVER; Start 05/22/18 at 15:00 ; Stop 05/22/18 at 17:32; Status DC Albuterol/ Ipratropium (Duoneb) 3 ml RTQID NEB Last administered on 05/23/18at 11:03; Start 05/22/18 at 16:00; Stop 05/23/18 at 15:59 Sodium Chloride 1,000 ml @ 1,000 mls/hr 1X ONCE IV Last administered on at 15:22; Start 05/22/18 at 15:00; Stop 05/22/18 at 15:59; Status DC Aspirin (Ecotrin) 325 mg DAILY PO Last administered on 05/23/18at 09:19; Start 05/23/18 at 09:00 Carvedilol (Coreg) 6.25 mg BIDWMEALS PO Last administered on 05/23/18at 09:19; Start 05/22/18 at 17:30 Dicyclomine HCl (Bentyl) 10 mg DAILY PO Last administered on 05/23/18at 09:20; Start 05/23/18 at 09:00 Levothyroxine Sodium (Synthroid) 100 mcg DAILY06 PO Last administered on at 06:12; Start 05/23/18 at 06:00 Tramadol HCl (Ultram) 50 mg PRN DAILY PRN PO MILD TO MODERATE PAIN; Start 05/22 at 17:15 Pantoprazole Sodium (Protonix) 40 mg DAILYAC PO Last administered on 05/23/18at 09:19; Start 05/23/18 at 07:30 Potassium Chloride (Klor-Con) 20 meq DAILYWBKFT PO Last administered on at 09:19; Start 05/23/18 at 08:00; Stop 05/23/18 at 09:44; Status DC Simvastatin (Zocor) 40 mg QHS PO Last administered on 05/22/18at 22:14; Start at 21:00 Ondansetron HCl (Zofran) 4 mg PRN Q6HRS PRN IV NAUSEA/VOMITING; Start 05/22/18 at 17:15 Morphine Sulfate (Morphine Sulfate) 1 mg PRN Q1HR PRN IV PAIN; Start 05/22/18 at 17:15 Acetaminophen (Tylenol) 650 mg PRN Q6HRS PRN PO Headaches, Temp > 101.5F; Start 05/22/18 at 17:15 Senna/Docusate Sodium (Senna Plus) 1 tab BID PO Last administered on 05/23/18at 09:20; Start 05/22/18 at 21:00 Magnesium Hydroxide (Milk Of Magnesia) 2,400 mg PRN Q12HR PRN PO CONSTIPATION; Start 05/22/18 at 17:15 Bisacodyl (Dulcolax Supp) 10 mg PRN DAILY PRN AR CONSTIPATION; Start 05/22/18 at 17:15 Heparin Sodium (Porcine) (Heparin Sodium) 5,000 unit Q8HRS SQ Last administered on 05/23/18at 06:17; Start 05/22/18 at 17:00; Stop 05/23/18 at 09:44 ; Status DC Furosemide (Lasix) 40 mg [id number] IVP Last administered on 05/23/18at 09:00; Start 05/22/18 at 17:15; Stop 05/23/18 at 09:45; Status DC Insulin Human Lispro (HumaLOG) 0-5 UNITS TIDWMEALS SQ Last administered on 05/23at 09:36; Start 05/23/18 at 08:00; Stop 05/23/18 at 09:44; Status DC Dextrose (Dextrose 50%-Water Syringe) 12.5 gm PRN Q15MIN PRN IV SEE COMMENTS; Start 05/22/18 at 17:30 Oseltamivir Phosphate (Tamiflu) 30 mg BID PO Last administered on 05/23/18at 09: 19; Start 05/22/18 at 18:00; Stop 05/23/18 at 09:44; Status DC Azithromycin 500 mg/Sodium Chloride 250 ml @ 250 mls/hr Q24H IV Last administered on 05/23/18at 06:42; Start 05/23/18 at 07:00 Ceftriaxone Sodium (Rocephin) 1 gm Q24H IVP Last administered on 05/23/18at 09: 20; Start 05/23/18 at 08:00 Influenza Virus Vaccine (Afluria Trivalent [id number] Syringe) 0.5 ml ONCE ONCE VAX IM ; Start 05/23/18 at 09:00; Stop 05/23/18 at 09:01; Status DC Potassium Chloride (Klor-Con) 40 meq DAILYWBKFT PO ; Start 05/23/18 at 09:45 Guaifenesin (Robitussin Dm) 10 ml PRN Q6HRS PRN PO COUGH; Start 05/23/18 at 09: 45 Furosemide (Lasix) 40 mg DAILY IVP ; Start 05/24/18 at 09:00; Stop 05/24/18 at 09:00; Status DC Lactobacillus Rhamnosus (Culturelle) 1 cap BID PO ; Start 05/23/18 at 21:00 Cetirizine HCl (ZyrTEC) 10 mg DAILY PO ; Start 05/23/18 at 12:00; Status UNV Benzonatate (Tessalon Perle) 100 mg [id number] PO ; Start 05/23/18 at 12:00; Status UNV Guaifenesin (Robitussin) 200 mg QID PO ; Start 05/23/18 at 13:00; Status UNV Ibuprofen (Motrin) 600 mg 1X ONCE PO ; Start 05/23/18 at 12:00; Stop 05/23/18 at 12:01; Status UNV Ibuprofen (Motrin) 400 mg PRN Q6HRS PRN PO INFLAMMATION; Start 05/23/18 at 12: 00; Status UNV Active Scripts Active Reported Protonix (Pantoprazole Sodium) 20 Mg Tablet.dr 40 Mg PO DAILY Ondansetron Odt (Ondansetron) 4 Mg Tab.rapdis 1 Tab PO PRN Q6-8HRS Furosemide 20 Mg Tablet 1 Tab PO DAILY Simvastatin 20 Mg Tablet 1 Tab PO QHS [place] 5-325 Tablet (Acetaminophen/Hydrocodone Bitart) 1 Each Tablet 1 Tab PO BID Carvedilol (Carvedilol) 6.25 Mg Tablet 6.25 Mg PO BID Dicyclomine Hcl 10 Mg Capsule 10 Mg PO DAILY Levothyroxine Sodium 100 Mcg Tablet 100 Mcg PO DAILYAC K-Tab ER (Potassium Chloride) 20 Meq Tablet.er 20 Meq PO DAILY Tramadol Hcl 50 Mg Tablet 50 Mg PO DAILY PRN Tramadol Hcl 50 Mg Tablet 50 Mg PO PRN Q4HRS PRN Vitals/I & O Vital Sign - Last 24 Hours 05/22/18 05/22/18 05/22/18 05/22/18 12:30 13:05 14:30 15:00 Temp 98.2 98.2 Pulse 92 92 86 Resp 20 B/P (MAP) 111/67 (82) 118/62 (80) 123/69 (87) Pulse Ox 91 99 97 91 O2 Delivery Room Air Room Air Nasal Cannula Nasal Cannula O2 Flow Rate 2.0 2.0 05/22/18 05/22/18 05/22/18 05/22/18 15:30 15:57 16:00 16:30 Pulse 84 84 88 B/P (MAP) 114/62 (79) 114/59 (77) 120/58 (78) Pulse Ox 96 99 99 95 O2 Delivery Nasal Cannula Room Air Nasal Cannula Nasal Cannula O2 Flow Rate 2.0 2.0 2.0 05/22/18 05/22/18 05/22/18 05/22/18 18:00 18:11 18:20 19:00 Temp 97.6 98.2 97.6 98.2 Pulse 82 82 88 Resp 20 20 B/P (MAP) 113/53 (73) 113/53 128/72 (90) Pulse Ox 91 95 O2 Delivery Nasal Cannula Nasal Cannula Nasal Cannula O2 Flow Rate 2.0 2.0 05/22/18 05/22/18 05/22/18 05/22/18 20:00 20:02 20:04 23:05 Temp 98.3 98.3 Pulse 72 Resp 20 B/P (MAP) 117/71 (86) Pulse Ox 95 96 O2 Delivery Nasal Cannula Room Air Nasal Cannula Nasal Cannula O2 Flow Rate 2.0 2.0 05/23/18 05/23/18 05/23/18 05/23/18 03:06 07:00 07:25 08:00 Temp 98.4 98.1 98.4 98.1 Pulse 77 78 Resp 20 18 B/P (MAP) 144/76 (98) 119/51 (73) Pulse Ox 96 92 99 O2 Delivery Nasal Cannula Nasal Cannula Room Air Nasal Cannula O2 Flow Rate 1.0 2.0 1.0 05/23/18 05/23/18 05/23/18 09:19 11:03 11:11 Temp 97.9 97.9 Pulse 78 80 Resp 18 B/P (MAP) 119/51 126/75 (92) Pulse Ox 95 95 O2 Delivery Room Air Nasal Cannula O2 Flow Rate 1.0 1.0 Intake and Output 05/22/18 05/22/18 05/23/18 15:01 23:01 07:01 Intake Total 1490 ml Output Total 0 ml Balance 1490 ml 0 ml JESUS NEELY MD May 23, 2018 11:54
[2018-05-23] MEDS ORDERED: IBUPROFEN 400 MG TABLET. PO PRN (12:00)
[2018-05-23] MEDS: BENZONATATE 100 MG CAPSULE. PO SCH ×2 (12:30→22:09)
[2018-05-23] MEDS: CETIRIZINE HCL 10 MG TABLET. PO SCH (12:30)
[2018-05-23] MEDS ORDERED: IBUPROFEN 200 MG TABLET. PO ONE (12:30)
--- NOTE | 2018-05-23 12:44 | RAD ---
CT of the chest without contrast, 05/23/2018: HISTORY: Interstitial lung disease, pneumonia Noncontrast scans were obtained as requested. There is mild calcific plaquing of the thoracic aorta the ascending aorta is at the upper limits of normal in size measuring 3.9 cm in width. There are mildly enlarged right paratracheal lymph nodes nodes, the largest of which measures 2 x 1.3 cm. There is also a mildly prominent subcarinal lymph node. There are moderate streaky pulmonary opacities posteriorly in both lower lobes. There appears be mild underlying traction bronchiectasis. The findings suggest scarring and chronic atelectasis. There are additional mild reticular and patchy groundglass opacities in the periphery of both lungs. There are several scattered calcified granulomata in the lungs. There is no evidence of pleural fluid. A dense calculus is present in the dependent aspect of the gallbladder. The gallbladder lizarraga are not thickened and there is no pericholecystic edema. Moderate scattered degenerative changes are present in the spine. IMPRESSION: 1. Mild scattered fibrotic changes in the periphery of both lungs with more confluent streaky densities posteriorly in both lung bases compatible with additional scarring and traction bronchiectasis. A component of pneumonia cannot be excluded. 2. Mild mediastinal adenopathy. 3. Borderline enlargement of the ascending aorta 4. Cholelithiasis. PQRS Compliance Statement: One or more of the following individualized dose reduction techniques were utilized for this examination: 1. Automated exposure control 2. Adjustment of the mA and/or kV according to patient size 3. Use of iterative reconstruction technique Electronically signed by: Bryn Bowles MD (05/23/2018 12:40 PM) [facility]
[2018-05-23] MEDS: guaiFENesin ORAL 200 MG/10 ML LIQUID. PO SCH ×3 (13:00→22:08)
[2018-05-23 14:57] VITALS: BP 99/64
--- NOTE | 2018-05-23 14:59 | NUR ---
SW following pt for anticipated dc needs. Chart reviewed. Pt lives at home with family. Pt has declined PT services but has walked 250ft with OT. No skilled needs indicated at this time. SW will be available for dc needs.
--- NOTE | 2018-05-23 17:47 | CARD ---
MR#: [id number] Date of Study: 05/23/2018 Ordering Physician: JESUS NEELY, Referring Physician: FINA KOENIG, Tech: Hiral Newman [facility] APPROVED REPORT EXAM: Two-dimensional and M-mode echocardiogram with Doppler and color Doppler. Other Information Quality : Technically LimitedHR: 80bpm Rhythm : NSR INDICATION Eval LVEF 2D DIMENSIONS RVDd2.9 (2.9-3.5cm)Left Atrium(2D)2.8 (1.6-4.0cm) IVSd0.9 (0.7-1.1cm)Aortic Root(2D)3.0 (2.0-3.7cm) LVDd4.5 (3.9-5.9cm)LVOT Diameter2.0 (1.8-2.4cm) PWd1.0 (0.7-1.1cm)LVDs2.7 (2.5-4.0cm) FS (%) 39.3 %SV64.2 ml LVEF(%)69.9 (>50%) Aortic Valve AoV Peak Jenaro.129.1cm/sAoV VTI25.9cm AO Peak GR.6.7mmHgLVOT Peak Jenaro.99.5cm/s AO Mean GR.4mmHgAVA (VMAX)2.37cm2 CHASIDY (VTI)2.40cm2 Mitral Valve MV E Vqxkafsu51.7cm/sMV DECEL [id number] MV A Xamedrcv34.1cm/sE/A Ratio0.8 MV A [id number] LEFT VENTRICLE The left ventricle is normal size. There is normal left ventricular wall thickness. The left ventricu lar systolic function is normal The Ejection Fraction is 60-65%. There is normal LV segmental wall mo tion. Transmitral Doppler flow pattern is Grade I-abnormal relaxation pattern. RIGHT VENTRICLE The right ventricle is normal size. There is normal right ventricular wall thickness. The right ventr icular systolic function is normal. ATRIA The left atrium size is normal. The right atrium size is normal. The interatrial septum is intact wit h no evidence for an atrial septal defect or patent foramen ovale as noted on 2-D or Doppler imaging. AORTIC VALVE The aortic valve is normal in structure and function. The aortic valve is probably trileaflet. Dopple r and Color Flow revealed no significant aortic regurgitation. There is no significant aortic valvula r stenosis. MITRAL VALVE The mitral valve is normal in structure and function. There is no evidence of mitral valve prolapse. There is no mitral valve stenosis. Doppler and Color Flow revealed no mitral valve regurgitation note d. TRICUSPID VALVE The tricuspid valve is normal in structure and function. Doppler and Color Flow revealed no tricuspid valve regurgitation noted. There is no tricuspid valve prolapse or vegetation. There is no tricuspid valve stenosis. PULMONIC VALVE Pulmonic valve not well visualized. GREAT VESSELS The aortic root is normal in size. The ascending aorta is normal in size. The IVC is normal in size a nd collapses >50% with inspiration. PERICARDIAL EFFUSION There is no evidence of significant pericardial effusion. Critical Notification Critical Value: No <Conclusion> The left ventricular systolic function is normal The Ejection Fraction is 60-65%. There is normal LV segmental wall motion. Transmitral Doppler flow pattern is Grade I-abnormal relaxation pattern. No signficant valvular abnormalities. There is no evidence of significant pericardial effusion. Signed by : Micheal Flores, Electronically Approved : 05/23/2018 17:45:35
[2018-05-23 19:00] VITALS: BP 120/67
[2018-05-23] MEDS: SIMVASTATIN 40 MG TABLET. PO SCH (22:08)
[2018-05-23] MEDS: LACTOBACILLUS RHAMNOSUS GG 1 CAPSULE. PO SCH (22:09)
[2018-05-23 22:59] VITALS: BP 115/50
[2018-05-24 02:55] VITALS: BP 122/69
[2018-05-24 03:50] LABS: BASO # 0.1 x10^3/uL (0.0-0.2); BASO % 1 % (0-3); EOS # 0.4 x10^3/uL (0.0-0.7); EOS % 5 % (0-3); HEMATOCRIT 36.7 % (36.0-47.0); HEMOGLOBIN 12.1 g/dL (12.0-15.5); LYMPH # 2.2 x10^3/uL (1.0-4.8); LYMPH % 26 % (24-48); MEAN CORPUSCULAR HEMOGLOBIN 27 pg (25-35); MEAN CORPUSCULAR HGB CONC 33 g/dL (31-37); MEAN CORPUSCULAR VOLUME 81 fL (79-100); MONO # 0.7 x10^3/uL (0.0-1.1); MONO % 9 % (0-9); NEUT # 5.1 x10^3uL (1.8-7.7); NEUT % 60 % (31-73); PLATELET COUNT 359 x10^3/uL (140-400); RED BLOOD COUNT 4.51 x10^6/uL (3.50-5.40); RED CELL DISTRIBUTION WIDTH 14.9 % (11.5-14.5); WHITE BLOOD COUNT 8.4 x10^3/uL (4.0-11.0)
[2018-05-24 04:18] LABS: CALCIUM 8.5 mg/dL (8.5-10.1); CREATININE 0.6 mg/dL (0.6-1.0); GFR 97.7; POTASSIUM 3.9 mmol/L (3.5-5.1)
[2018-05-24] MEDS: LEVOTHYROXINE 100 MCG TABLET PO SCH (06:39)
[2018-05-24] MEDS: AZITHROMYCIN 500 MG in IV NORMAL SALINE 250ML 250 ML IV SCH (06:39)
[2018-05-24 07:00] VITALS: BP 127/56
[2018-05-24] MEDS: IPRATRPIUM/ALBUTEROL 0.5/2.5MG 3 ML NEBU. NEB SCH ×4 (07:41→19:42)
--- NOTE | 2018-05-24 08:41 | PDOC ---
PROGRESS NOTES Chief Complaint Chief Complaint Pneumonia - CAP by history, however it is bilateral, looks interstitial, could also be CHF. needs atypical coverage, zithromax ok and rocephin as well as Tamiflu. consult pulm for abnormal CXR Sepsis - with leukocytosis, tachycardia, given early antibiotics and fluids for pneumonia, however, her BP is high, will give lasix now. Hypoxia - likely from pneumonia/flu/CHF, will diurese. Consult pulm. Wean O2 as tolerated HTN - on coreg, will cont. She denies CHF at this time, however on statin, lasix , and BB she likely has a cardiomyopathy of some sort HLD - cont statin Hyperglycemia - she denies h/o DM, glucose checks, low sliding scale FEN - Cardiac diet PPX - heparin FULL CODE Inpatient for atypical pneumonia at least 2 midnights. Headache Hypokalemia better ? CHF History of Present Illness History of Present Illness She is feeling slightly better, remains tachycardic, headache Appreciate pulmonary No leg edema, no JVD Sounds nasal Pneumonia - CAP by history, however it is bilateral, looks interstitial, could also be CHF. needs atypical coverage, zithromax ok and rocephin as well as Tamiflu. consult pulm for abnormal CXR Sepsis - with leukocytosis, tachycardia, given early antibiotics and fluids for pneumonia, however, her BP was up, down with meds, will d/c lasix now. Hypoxia - likely from pneumonia/flu/CHF, diuresed. Consult pulm. Wean O2 as tolerated, seems she may be able to get off it today HTN - on coreg, will cont. She denies CHF at this time, however on statin, lasix , and BB she is unlikely to have a cardiomyopathy of some sort, echo was essentially normal, likely this is pulm based on CT HLD - cont statin Hyperglycemia - she denies h/o DM, glucose checks, low sliding scale Start antihistamine, cough medicine scheduled, DuoNeb's as ordered and add pulmicort Ibuprofen now then prn for headache Other supportive meds FEN - Cardiac diet PPX - heparin FULL CODE Inpatient for atypical pneumonia at least 2 midnights. Vitals Vitals Vital Signs Date Time Temp Pulse Resp B/P (MAP) Pulse Ox O2 Delivery O2 Flow Rate FiO2 05/24/18 07:42 96 Nasal Cannula 2.0 05/24/18 07:00 98.0 73 18 127/56 (79) 98.0 Physical Exam General: Alert, Oriented X3, Cooperative, No acute distress Heart: Normal S1, Normal S2, Other (tachy, sinus) Lungs: Wheezing, Crackles Abdomen: Normal bowel sounds, Soft, No tenderness, No hepatosplenomegaly, No masses Extremities: No clubbing, No cyanosis, No edema, Normal pulses, No tenderness/ swelling Skin: No rashes, No breakdown, No significant lesion Labs LABS Laboratory Tests Test 05/23/18 09:14 05/24/18 03:15 Glucose (Fingerstick) 162 mg/dL (70-99) White Blood Count 8.4 x10^3/uL (4.0-11.0) Red Blood Count 4.51 x10^6/uL (3.50-5.40) Hemoglobin 12.1 g/dL (12.0-15.5) Hematocrit 36.7 % (36.0-47.0) Mean Corpuscular Volume 81 fL (79-100) Mean Corpuscular Hemoglobin 27 pg (25-35) Mean Corpuscular Hemoglobin Concent 33 g/dL (31-37) Red Cell Distribution Width 14.9 % (11.5-14.5) Platelet Count 359 x10^3/uL (140-400) Neutrophils (%) (Auto) 60 % (31-73) Lymphocytes (%) (Auto) 26 % (24-48) Monocytes (%) (Auto) 9 % (0-9) Eosinophils (%) (Auto) 5 % (0-3) Basophils (%) (Auto) 1 % (0-3) Neutrophils # (Auto) 5.1 x10^3uL (1.8-7.7) Lymphocytes # (Auto) 2.2 x10^3/uL (1.0-4.8) Monocytes # (Auto) 0.7 x10^3/uL (0.0-1.1) Eosinophils # (Auto) 0.4 x10^3/uL (0.0-0.7) Basophils # (Auto) 0.1 x10^3/uL (0.0-0.2) Sodium Level 141 mmol/L (136-145) Potassium Level 3.9 mmol/L (3.5-5.1) Chloride Level 108 mmol/L (98-107) Carbon Dioxide Level 28 mmol/L (21-32) Anion Gap 5 (6-14) Blood Urea Nitrogen 11 mg/dL (7-20) Creatinine 0.6 mg/dL (0.6-1.0) Estimated GFR (Cockcroft-Gault) 97.7 Glucose Level 107 mg/dL (70-99) Calcium Level 8.5 mg/dL (8.5-10.1) Assessment and Plan Assessmemt and Plan Problems Medical Problems: (1) CAP (community acquired pneumonia) Status: Acute Comment Review of Relevant I have reviewed the following items ca (where applicable) has been applied. Labs Laboratory Tests Test 05/22/18 12:38 05/22/18 13:16 05/22/18 13:30 05/22/18 16:50 Urine Collection Type Unknown Urine Color Yellow Urine Clarity Clear Urine pH 8.0 Urine Specific [place] 1.015 Urine Protein Negative mg/dL (NEG-TRACE) Urine Glucose (UA) Negative mg/dL (NEG) Urine Ketones (Stick) Negative mg/dL (NEG) Urine Blood Moderate (NEG) Urine Nitrite Negative (NEG) Urine Bilirubin Negative (NEG) Urine Urobilinogen Dipstick 0.2 mg/dL (0.2 mg/dL) Urine Leukocyte Esterase Negative (NEG) Urine RBC >40 /HPF (0-2) Urine WBC 0 /HPF (0-4) Urine Squamous Epithelial Cells Mod /LPF Urine Bacteria 0 /HPF (0-FEW) White Blood Count 19.9 x10^3/uL (4.0-11.0) Red Blood Count 4.49 x10^6/uL (3.50-5.40) Hemoglobin 12.2 g/dL (12.0-15.5) Hematocrit 36.1 % (36.0-47.0) Mean Corpuscular Volume 80 fL (79-100) Mean Corpuscular Hemoglobin 27 pg (25-35) Mean Corpuscular Hemoglobin Concent 34 g/dL (31-37) Red Cell Distribution Width 15.0 % (11.5-14.5) Platelet Count 335 x10^3/uL (140-400) Neutrophils (%) (Auto) 83 % (31-73) Lymphocytes (%) (Auto) 10 % (24-48) Monocytes (%) (Auto) 5 % (0-9) Eosinophils (%) (Auto) 1 % (0-3) Basophils (%) (Auto) 1 % (0-3) Neutrophils # (Auto) 16.6 x10^3uL (1.8-7.7) Lymphocytes # (Auto) 2.1 x10^3/uL (1.0-4.8) Monocytes # (Auto) 1.0 x10^3/uL (0.0-1.1) Eosinophils # (Auto) 0.1 x10^3/uL (0.0-0.7) Basophils # (Auto) 0.2 x10^3/uL (0.0-0.2) Segmented Neutrophils % 88 % (35-66) Band Neutrophils % 1 % (0-9) Lymphocytes % 11 % (24-48) Platelet Estimate Adequate (ADEQUATE) Large Platelets Occ Polychromasia Slight Ovalocytes Occ Schistocytes Occ Prothrombin Time 13.3 SEC (11.7-14.0) Prothromb Time International Ratio 1.0 (0.8-1.1) Activated Partial Thromboplast Time 20 SEC (24-38) Sodium Level 138 mmol/L (136-145) Potassium Level 3.5 mmol/L (3.5-5.1) Chloride Level 103 mmol/L (98-107) Carbon Dioxide Level 25 mmol/L (21-32) Anion Gap 10 (6-14) Blood Urea Nitrogen 14 mg/dL (7-20) Creatinine 0.6 mg/dL (0.6-1.0) Estimated GFR (Cockcroft-Gault) 97.7 BUN/Creatinine Ratio 23 (6-20) Glucose Level 123 mg/dL (70-99) Lactic Acid Level 0.9 mmol/L (0.4-2.0) 0.8 mmol/L (0.4-2.0) Calcium Level 8.6 mg/dL (8.5-10.1) Total Bilirubin 0.4 mg/dL (0.2-1.0) Aspartate Amino Transf (AST/SGOT) 22 U/L (15-37) Alanine Aminotransferase (ALT/SGPT) 36 U/L (14-59) Alkaline Phosphatase 178 U/L (46-116) Troponin I Quantitative < 0.017 ng/mL (0.000-0.055) Total Protein 7.5 g/dL (6.4-8.2) Albumin 2.5 g/dL (3.4-5.0) Albumin/Globulin Ratio 0.5 (1.0-1.7) Lipase 95 U/L (73-393) Influenza Type A Antigen Negative (NEGATIVE) Influenza Type B Antigen Negative (NEGATIVE) Test 05/23/18 06:50 05/23/18 09:14 05/24/18 03:15 White Blood Count 10.9 x10^3/uL (4.0-11.0) 8.4 x10^3/uL (4.0-11.0) Red Blood Count 4.24 x10^6/uL (3.50-5.40) 4.51 x10^6/uL (3.50-5.40) Hemoglobin 11.7 g/dL (12.0-15.5) 12.1 g/dL (12.0-15.5) Hematocrit 34.0 % (36.0-47.0) 36.7 % (36.0-47.0) Mean Corpuscular Volume 80 fL (79-100) 81 fL (79-100) Mean Corpuscular Hemoglobin 28 pg (25-35) 27 pg (25-35) Mean Corpuscular Hemoglobin Concent 34 g/dL (31-37) 33 g/dL (31-37) Red Cell Distribution Width 15.3 % (11.5-14.5) 14.9 % (11.5-14.5) Platelet Count 338 x10^3/uL (140-400) 359 x10^3/uL (140-400) Neutrophils (%) (Auto) 69 % (31-73) 60 % (31-73) Lymphocytes (%) (Auto) 22 % (24-48) 26 % (24-48) Monocytes (%) (Auto) 6 % (0-9) 9 % (0-9) Eosinophils (%) (Auto) 3 % (0-3) 5 % (0-3) Basophils (%) (Auto) 1 % (0-3) 1 % (0-3) Neutrophils # (Auto) 7.5 x10^3uL (1.8-7.7) 5.1 x10^3uL (1.8-7.7) Lymphocytes # (Auto) 2.4 x10^3/uL (1.0-4.8) 2.2 x10^3/uL (1.0-4.8) Monocytes # (Auto) 0.6 x10^3/uL (0.0-1.1) 0.7 x10^3/uL (0.0-1.1) Eosinophils # (Auto) 0.3 x10^3/uL (0.0-0.7) 0.4 x10^3/uL (0.0-0.7) Basophils # (Auto) 0.1 x10^3/uL (0.0-0.2) 0.1 x10^3/uL (0.0-0.2) Sodium Level 140 mmol/L (136-145) 141 mmol/L (136-145) Potassium Level 3.2 mmol/L (3.5-5.1) 3.9 mmol/L (3.5-5.1) Chloride Level 105 mmol/L (98-107) 108 mmol/L (98-107) Carbon Dioxide Level 26 mmol/L (21-32) 28 mmol/L (21-32) Anion Gap 9 (6-14) 5 (6-14) Blood Urea Nitrogen 9 mg/dL (7-20) 11 mg/dL (7-20) Creatinine 0.5 mg/dL (0.6-1.0) 0.6 mg/dL (0.6-1.0) Estimated GFR (Cockcroft-Gault) 120.6 97.7 Glucose Level 107 mg/dL (70-99) 107 mg/dL (70-99) Calcium Level 7.9 mg/dL (8.5-10.1) 8.5 mg/dL (8.5-10.1) YT-Wxq-V-Type Natriuretic Peptide 174 pg/mL (0-124) Glucose (Fingerstick) 162 mg/dL (70-99) Laboratory Tests Test 05/23/18 09:14 05/24/18 03:15 Glucose (Fingerstick) 162 mg/dL (70-99) White Blood Count 8.4 x10^3/uL (4.0-11.0) Red Blood Count 4.51 x10^6/uL (3.50-5.40) Hemoglobin 12.1 g/dL (12.0-15.5) Hematocrit 36.7 % (36.0-47.0) Mean Corpuscular Volume 81 fL (79-100) Mean Corpuscular Hemoglobin 27 pg (25-35) Mean Corpuscular Hemoglobin Concent 33 g/dL (31-37) Red Cell Distribution Width 14.9 % (11.5-14.5) Platelet Count 359 x10^3/uL (140-400) Neutrophils (%) (Auto) 60 % (31-73) Lymphocytes (%) (Auto) 26 % (24-48) Monocytes (%) (Auto) 9 % (0-9) Eosinophils (%) (Auto) 5 % (0-3) Basophils (%) (Auto) 1 % (0-3) Neutrophils # (Auto) 5.1 x10^3uL (1.8-7.7) Lymphocytes # (Auto) 2.2 x10^3/uL (1.0-4.8) Monocytes # (Auto) 0.7 x10^3/uL (0.0-1.1) Eosinophils # (Auto) 0.4 x10^3/uL (0.0-0.7) Basophils # (Auto) 0.1 x10^3/uL (0.0-0.2) Sodium Level 141 mmol/L (136-145) Potassium Level 3.9 mmol/L (3.5-5.1) Chloride Level 108 mmol/L (98-107) Carbon Dioxide Level 28 mmol/L (21-32) Anion Gap 5 (6-14) Blood Urea Nitrogen 11 mg/dL (7-20) Creatinine 0.6 mg/dL (0.6-1.0) Estimated GFR (Cockcroft-Gault) 97.7 Glucose Level 107 mg/dL (70-99) Calcium Level 8.5 mg/dL (8.5-10.1) Microbiology 05/22/18 Blood Culture - Preliminary, Resulted NO GROWTH AFTER 1 DAY Medications Current Medications Albuterol/ Ipratropium (Duoneb) 3 ml 1X ONCE NEB Last administered on at 13:05; Start 05/22/18 at 13:00; Stop 05/22/18 at 13:01; Status DC Acetaminophen (Tylenol) 1,000 mg 1X ONCE PO Last administered on 05/22/18at 13: 30; Start 05/22/18 at 13:00; Stop 05/22/18 at 13:01; Status DC Azithromycin 250 ml @ 250 mls/hr 1X ONCE IV Last administered on 05/22/18at 14 :30; Start 05/22/18 at 14:00; Stop 05/22/18 at 14:59; Status DC Ceftriaxone Sodium (Rocephin) 1 gm 1X ONCE IVP Last administered on 05/22/18at 14:29; Start 05/22/18 at 14:00; Stop 05/22/18 at 14:01; Status DC Ondansetron HCl (Zofran) 4 mg PRN Q8HRS PRN IV NAUSEA/VOMITING; Start 05/22/18 at 15:00; Stop 05/23/18 at 12:17; Status DC Sodium Chloride 1,000 ml @ 100 mls/hr Q10H IV Last administered on 05/23/18at 00:38; Start 05/22/18 at 14:51; Stop 05/23/18 at 14:50; Status DC Acetaminophen (Tylenol) 650 mg PRN Q4HRS PRN PO FEVER; Start 05/22/18 at 15:00 ; Stop 05/22/18 at 17:32; Status DC Albuterol/ Ipratropium (Duoneb) 3 ml RTQID NEB Last administered on 05/23/18at 14:39; Start 05/22/18 at 16:00; Stop 05/23/18 at 15:59; Status DC Sodium Chloride 1,000 ml @ 1,000 mls/hr 1X ONCE IV Last administered on at 15:22; Start 05/22/18 at 15:00; Stop 05/22/18 at 15:59; Status DC Aspirin (Ecotrin) 325 mg DAILY PO Last administered on 05/23/18at 09:19; Start 05/23/18 at 09:00 Carvedilol (Coreg) 6.25 mg BIDWMEALS PO Last administered on 05/23/18at 09:19; Start 05/22/18 at 17:30 Dicyclomine HCl (Bentyl) 10 mg DAILY PO Last administered on 05/23/18at 09:20; Start 05/23/18 at 09:00 Levothyroxine Sodium (Synthroid) 100 mcg DAILY06 PO Last administered on at 06:39; Start 05/23/18 at 06:00 Tramadol HCl (Ultram) 50 mg PRN DAILY PRN PO MILD TO MODERATE PAIN; Start 05/22 at 17:15 Pantoprazole Sodium (Protonix) 40 mg DAILYAC PO Last administered on 05/23/18at 09:19; Start 05/23/18 at 07:30 Potassium Chloride (Klor-Con) 20 meq DAILYWBKFT PO Last administered on at 09:19; Start 05/23/18 at 08:00; Stop 05/23/18 at 09:44; Status DC Simvastatin (Zocor) 40 mg QHS PO Last administered on 05/23/18at 22:08; Start at 21:00 Ondansetron HCl (Zofran) 4 mg PRN Q6HRS PRN IV NAUSEA/VOMITING; Start 05/22/18 at 17:15 Morphine Sulfate (Morphine Sulfate) 1 mg PRN Q1HR PRN IV PAIN; Start 05/22/18 at 17:15 Acetaminophen (Tylenol) 650 mg PRN Q6HRS PRN PO Headaches, Temp > 101.5F; Start 05/22/18 at 17:15 Senna/Docusate Sodium (Senna Plus) 1 tab BID PO Last administered on 05/23/18at 22:09; Start 05/22/18 at 21:00 Magnesium Hydroxide (Milk Of Magnesia) 2,400 mg PRN Q12HR PRN PO CONSTIPATION; Start 05/22/18 at 17:15 Bisacodyl (Dulcolax Supp) 10 mg PRN DAILY PRN OR CONSTIPATION; Start 05/22/18 at 17:15 Heparin Sodium (Porcine) (Heparin Sodium) 5,000 unit Q8HRS SQ Last administered on 05/23/18at 06:17; Start 05/22/18 at 17:00; Stop 05/23/18 at 09:44 ; Status DC Furosemide (Lasix) 40 mg BID92 IVP Last administered on 05/23/18at 09:00; Start 05/22/18 at 17:15; Stop 05/23/18 at 09:45; Status DC Insulin Human Lispro (HumaLOG) 0-5 UNITS TIDWMEALS SQ Last administered on 05/23at 09:36; Start 05/23/18 at 08:00; Stop 05/23/18 at 09:44; Status DC Dextrose (Dextrose 50%-Water Syringe) 12.5 gm PRN Q15MIN PRN IV SEE COMMENTS; Start 05/22/18 at 17:30 Oseltamivir Phosphate (Tamiflu) 30 mg BID PO Last administered on 05/23/18at 09: 19; Start 05/22/18 at 18:00; Stop 05/23/18 at 09:44; Status DC Azithromycin 500 mg/Sodium Chloride 250 ml @ 250 mls/hr Q24H IV Last administered on 05/24/18at 06:39; Start 05/23/18 at 07:00 Ceftriaxone Sodium (Rocephin) 1 gm Q24H IVP Last administered on 05/23/18at 09: 20; Start 05/23/18 at 08:00 Influenza Virus Vaccine (Afluria Trivalent [id number] Syringe) 0.5 ml ONCE ONCE VAX IM ; Start 05/23/18 at 09:00; Stop 05/23/18 at 09:01; Status DC Potassium Chloride (Klor-Con) 40 meq DAILYWBKFT PO Last administered on at 09:45; Start 05/23/18 at 09:45 Guaifenesin (Robitussin Dm) 10 ml PRN Q6HRS PRN PO COUGH; Start 05/23/18 at 09: 45 Furosemide (Lasix) 40 mg DAILY IVP ; Start 05/24/18 at 09:00; Stop 05/24/18 at 09:00; Status DC Lactobacillus Rhamnosus (Culturelle) 1 cap BID PO Last administered on at 22:09; Start 05/23/18 at 21:00 Cetirizine HCl (ZyrTEC) 10 mg DAILY PO Last administered on 05/23/18at 12:30; Start 05/23/18 at 12:30 Benzonatate (Tessalon Perle) 100 mg [id number] PO Last administered on 05/23/18at 22 :09; Start 05/23/18 at 12:30 Guaifenesin (Robitussin) 200 mg QID PO Last administered on 05/23/18at 22:08; Start 05/23/18 at 13:00 Ibuprofen (Motrin) 600 mg 1X ONCE PO Last administered on 05/23/18at 12:30; Start 05/23/18 at 12:30; Stop 05/23/18 at 12:31; Status DC Ibuprofen (Motrin) 400 mg PRN Q6HRS PRN PO INFLAMMATION Last administered on 03/31at 16:06; Start 05/23/18 at 12:00 Albuterol/ Ipratropium (Duoneb) 3 ml RTQID NEB Last administered on 05/24/18at 07:41; Start 05/23/18 at 20:30 Active Scripts Active Reported Protonix (Pantoprazole Sodium) 20 Mg Tablet.dr 40 Mg PO DAILY Ondansetron Odt (Ondansetron) 4 Mg Tab.rapdis 1 Tab PO PRN Q6-8HRS Furosemide 20 Mg Tablet 1 Tab PO DAILY Simvastatin 20 Mg Tablet 1 Tab PO QHS [place] 5-325 Tablet (Acetaminophen/Hydrocodone Bitart) 1 Each Tablet 1 Tab PO BID Carvedilol (Carvedilol) 6.25 Mg Tablet 6.25 Mg PO BID Dicyclomine Hcl 10 Mg Capsule 10 Mg PO DAILY Levothyroxine Sodium 100 Mcg Tablet 100 Mcg PO DAILYAC K-Tab ER (Potassium Chloride) 20 Meq Tablet.er 20 Meq PO DAILY Tramadol Hcl 50 Mg Tablet 50 Mg PO DAILY PRN Tramadol Hcl 50 Mg Tablet 50 Mg PO PRN Q4HRS PRN Vitals/I & O Vital Sign - Last 24 Hours 05/23/18 05/23/18 05/23/18 05/23/18 09:19 11:03 11:11 14:41 Temp 97.9 97.9 Pulse 78 80 Resp 18 B/P (MAP) 119/51 126/75 (92) Pulse Ox 95 95 97 O2 Delivery Room Air Nasal Cannula Room Air O2 Flow Rate 1.0 1.0 05/23/18 05/23/18 05/23/18 05/23/18 14:57 17:00 19:00 20:30 Temp 98.1 98.4 98.1 98.4 Pulse 77 77 65 Resp 20 18 B/P (MAP) 99/64 (76) 99/64 120/67 (84) Pulse Ox 92 94 O2 Delivery Room Air Room Air Nasal Cannula O2 Flow Rate 2.0 05/23/18 05/23/18 05/24/18 05/24/18 20:52 22:59 02:55 07:00 Temp 98.4 98.1 98.0 98.4 98.1 98.0 Pulse 78 71 73 Resp 18 18 18 B/P (MAP) 115/50 (71) 122/69 (86) 127/56 (79) Pulse Ox 96 92 95 93 O2 Delivery Nasal Cannula Nasal Cannula Nasal Cannula 2L PRN O2 Flow Rate 2.0 2.0 2.0 05/24/18 07:42 Pulse Ox 96 O2 Delivery Nasal Cannula O2 Flow Rate 2.0 Intake and Output 05/23/18 05/23/18 05/24/18 15:01 23:01 07:01 Intake Total 540 ml 180 ml Output Total 0 ml Balance 540 ml 180 ml 0 ml FINA KOENIG MD May 24, 2018 08:41
[2018-05-24] MEDS: IV NORMAL SALINE 1000ML BAG 1,000 ML IV SCH (08:48)
[2018-05-24] MEDS: guaiFENesin ORAL 200 MG/10 ML LIQUID. PO SCH ×4 (08:49→20:39)
[2018-05-24] MEDS: DICYCLOMINE HCL 10 MG CAPSULE PO SCH (08:49)
[2018-05-24] MEDS: CARVEDILOL 6.25 MG TABLET. PO SCH ×2 (08:50→17:28)
[2018-05-24] MEDS: ASPIRIN ENTERIC COATED 325 MG TABLET.DR. PO SCH (08:51)
[2018-05-24] MEDS: LACTOBACILLUS RHAMNOSUS GG 1 CAPSULE. PO SCH ×2 (08:51→20:39)
[2018-05-24] MEDS: PANTOPRAZOLE 40 MG TABLET.DR. PO SCH (08:52)
[2018-05-24] MEDS: SENNOSIDES/DOCUSATE 8.6/50MG TABLET. PO SCH ×2 (08:52→20:39)
[2018-05-24] MEDS: BENZONATATE 100 MG CAPSULE. PO SCH ×3 (08:52→20:39)
[2018-05-24] MEDS: POTASSIUM CHLORIDE 20 MEQ TABLET.ER. PO SCH (08:52)
[2018-05-24] MEDS: cefTRIAXone IV Push 1 GM VIAL. IVP SCH (08:53)
[2018-05-24] MEDS ORDERED: FUROSEMIDE 40 MG/4 ML VIAL. IVP SCH (09:00)
[2018-05-24] MEDS: CETIRIZINE HCL 10 MG TABLET. PO SCH (09:25)
[2018-05-24 11:00] VITALS: BP 140/76
[2018-05-24] MEDS: ACETAMINOPHEN 325 MG TABLET. PO PRN (12:47)
[2018-05-24] MEDS: traMADol 50 MG TABLET PO PRN (12:47)
--- NOTE | 2018-05-24 13:01 | NUR ---
C/O black tar like stools; blood in urine but is not sure if it is from the vagina; c/o stomach being irritated r/t being on pain meds for long periods of time. Requesting that her meds be re-evaluated. Discussed w/ Dr. Mcgovern.
--- NOTE | 2018-05-24 13:20 | PDOC ---
PULMONARY PROGRESS NOTES Subjective persistent cough Vitals Vital Signs Date Time Temp Pulse Resp B/P (MAP) Pulse Ox O2 Delivery O2 Flow Rate FiO2 05/24/18 12:47 18 Nasal Cannula 05/24/18 11:36 96 2.0 05/24/18 11:00 98.3 78 140/76 (97) 98.3 General: Alert, No acute distress Lungs: Clear Cardiovascular: S1 Abdomen: Soft Neuro Exam: Alert Extremities: No Edema Skin: Warm Labs Laboratory Tests Test 05/22/18 13:30 05/22/18 16:50 05/23/18 06:50 05/23/18 09:14 Influenza Type A Antigen Negative (NEGATIVE) Influenza Type B Antigen Negative (NEGATIVE) Lactic Acid Level 0.8 mmol/L (0.4-2.0) White Blood Count 10.9 x10^3/uL (4.0-11.0) Red Blood Count 4.24 x10^6/uL (3.50-5.40) Hemoglobin 11.7 g/dL (12.0-15.5) Hematocrit 34.0 % (36.0-47.0) Mean Corpuscular Volume 80 fL (79-100) Mean Corpuscular Hemoglobin 28 pg (25-35) Mean Corpuscular Hemoglobin Concent 34 g/dL (31-37) Red Cell Distribution Width 15.3 % (11.5-14.5) Platelet Count 338 x10^3/uL (140-400) Neutrophils (%) (Auto) 69 % (31-73) Lymphocytes (%) (Auto) 22 % (24-48) Monocytes (%) (Auto) 6 % (0-9) Eosinophils (%) (Auto) 3 % (0-3) Basophils (%) (Auto) 1 % (0-3) Neutrophils # (Auto) 7.5 x10^3uL (1.8-7.7) Lymphocytes # (Auto) 2.4 x10^3/uL (1.0-4.8) Monocytes # (Auto) 0.6 x10^3/uL (0.0-1.1) Eosinophils # (Auto) 0.3 x10^3/uL (0.0-0.7) Basophils # (Auto) 0.1 x10^3/uL (0.0-0.2) Sodium Level 140 mmol/L (136-145) Potassium Level 3.2 mmol/L (3.5-5.1) Chloride Level 105 mmol/L (98-107) Carbon Dioxide Level 26 mmol/L (21-32) Anion Gap 9 (6-14) Blood Urea Nitrogen 9 mg/dL (7-20) Creatinine 0.5 mg/dL (0.6-1.0) Estimated GFR (Cockcroft-Gault) 120.6 Glucose Level 107 mg/dL (70-99) Calcium Level 7.9 mg/dL (8.5-10.1) FM-Vzb-O-Type Natriuretic Peptide 174 pg/mL (0-124) Glucose (Fingerstick) 162 mg/dL (70-99) Test 05/24/18 03:15 White Blood Count 8.4 x10^3/uL (4.0-11.0) Red Blood Count 4.51 x10^6/uL (3.50-5.40) Hemoglobin 12.1 g/dL (12.0-15.5) Hematocrit 36.7 % (36.0-47.0) Mean Corpuscular Volume 81 fL (79-100) Mean Corpuscular Hemoglobin 27 pg (25-35) Mean Corpuscular Hemoglobin Concent 33 g/dL (31-37) Red Cell Distribution Width 14.9 % (11.5-14.5) Platelet Count 359 x10^3/uL (140-400) Neutrophils (%) (Auto) 60 % (31-73) Lymphocytes (%) (Auto) 26 % (24-48) Monocytes (%) (Auto) 9 % (0-9) Eosinophils (%) (Auto) 5 % (0-3) Basophils (%) (Auto) 1 % (0-3) Neutrophils # (Auto) 5.1 x10^3uL (1.8-7.7) Lymphocytes # (Auto) 2.2 x10^3/uL (1.0-4.8) Monocytes # (Auto) 0.7 x10^3/uL (0.0-1.1) Eosinophils # (Auto) 0.4 x10^3/uL (0.0-0.7) Basophils # (Auto) 0.1 x10^3/uL (0.0-0.2) Sodium Level 141 mmol/L (136-145) Potassium Level 3.9 mmol/L (3.5-5.1) Chloride Level 108 mmol/L (98-107) Carbon Dioxide Level 28 mmol/L (21-32) Anion Gap 5 (6-14) Blood Urea Nitrogen 11 mg/dL (7-20) Creatinine 0.6 mg/dL (0.6-1.0) Estimated GFR (Cockcroft-Gault) 97.7 Glucose Level 107 mg/dL (70-99) Calcium Level 8.5 mg/dL (8.5-10.1) Laboratory Tests Test 05/24/18 03:15 White Blood Count 8.4 x10^3/uL (4.0-11.0) Red Blood Count 4.51 x10^6/uL (3.50-5.40) Hemoglobin 12.1 g/dL (12.0-15.5) Hematocrit 36.7 % (36.0-47.0) Mean Corpuscular Volume 81 fL (79-100) Mean Corpuscular Hemoglobin 27 pg (25-35) Mean Corpuscular Hemoglobin Concent 33 g/dL (31-37) Red Cell Distribution Width 14.9 % (11.5-14.5) Platelet Count 359 x10^3/uL (140-400) Neutrophils (%) (Auto) 60 % (31-73) Lymphocytes (%) (Auto) 26 % (24-48) Monocytes (%) (Auto) 9 % (0-9) Eosinophils (%) (Auto) 5 % (0-3) Basophils (%) (Auto) 1 % (0-3) Neutrophils # (Auto) 5.1 x10^3uL (1.8-7.7) Lymphocytes # (Auto) 2.2 x10^3/uL (1.0-4.8) Monocytes # (Auto) 0.7 x10^3/uL (0.0-1.1) Eosinophils # (Auto) 0.4 x10^3/uL (0.0-0.7) Basophils # (Auto) 0.1 x10^3/uL (0.0-0.2) Sodium Level 141 mmol/L (136-145) Potassium Level 3.9 mmol/L (3.5-5.1) Chloride Level 108 mmol/L (98-107) Carbon Dioxide Level 28 mmol/L (21-32) Anion Gap 5 (6-14) Blood Urea Nitrogen 11 mg/dL (7-20) Creatinine 0.6 mg/dL (0.6-1.0) Estimated GFR (Cockcroft-Gault) 97.7 Glucose Level 107 mg/dL (70-99) Calcium Level 8.5 mg/dL (8.5-10.1) Medications Active Scripts Medications Dose Route/Sig Max Daily Dose Days Date Category Protonix (Pantoprazole Sodium) 20 Mg Tablet.dr 40 Mg PO DAILY 05/22/18 Reported Ondansetron Odt (Ondansetron) 4 Mg Tab.rapdis 1 Tab PO PRN Q6-8HRS 05/22/18 Reported Furosemide 20 Mg Tablet 1 Tab PO DAILY 05/22/18 Reported Simvastatin 20 Mg Tablet 1 Tab PO QHS 05/22/18 Reported [place] 5-325 Tablet (Acetaminophen/Hydrocodone Bitart) 1 Each Tablet 1 Tab PO BID 05/22/18 Reported Carvedilol (Carvedilol) 6.25 Mg Tablet 6.25 Mg PO BID 10/13/13 Reported Dicyclomine Hcl 10 Mg Capsule 10 Mg PO DAILY 10/13/13 Reported Levothyroxine Sodium 100 Mcg Tablet 100 Mcg PO DAILYAC 10/13/13 Reported K-Tab ER (Potassium Chloride) 20 Meq Tablet.er 20 Meq PO DAILY 10/13/13 Reported Tramadol Hcl 50 Mg Tablet 50 Mg PO DAILY PRN 10/13/13 Reported Tramadol Hcl 50 Mg Tablet 50 Mg PO PRN Q4HRS PRN 10/13/13 Reported Impression . 1. Persistent cough for the last 5 days with flu-like symptoms. Suspect that she likely has a pneumonia; 2. No significant history of tobacco use. 3. Influenza screen negative. Plan . 1. Continue with present antibiotics. 2. Cough suppressant. 3. Nebs, add Pulmicort 4. CT chest reviewed. She has basal pneumonia. Not convinced that she has any sig fibrosis or ILD 5. repeat cxr Saturday TANIA LOPEZ MD May 24, 2018 13:20
[2018-05-24 15:00] VITALS: BP 122/60
[2018-05-24] MEDS: BUDESONIDE 0.5 MG/2 ML NEBU. NEB SCH (19:43)
[2018-05-24 19:45] VITALS: BP 118/63
[2018-05-24] MEDS: OSELTAMIVIR 75 MG CAPSULE PO SCH (20:39)
[2018-05-24] MEDS: SIMVASTATIN 40 MG TABLET. PO SCH (20:39)
[2018-05-24 23:00] VITALS: BP 126/45
[2018-05-25 03:00] VITALS: BP 118/70
[2018-05-25 04:56] LABS: BASO # 0.1 x10^3/uL (0.0-0.2); BASO % 1 % (0-3); EOS # 0.3 x10^3/uL (0.0-0.7); EOS % 3 % (0-3); HEMOGLOBIN 12.2 g/dL (12.0-15.5); LYMPH # 2.4 x10^3/uL (1.0-4.8); LYMPH % 23 % (24-48); MEAN CORPUSCULAR HEMOGLOBIN 28 pg (25-35); MEAN CORPUSCULAR HGB CONC 35 g/dL (31-37); MEAN CORPUSCULAR VOLUME 80 fL (79-100); MONO # 0.9 x10^3/uL (0.0-1.1); MONO % 8 % (0-9); NEUT # 7.1 x10^3uL (1.8-7.7); NEUT % 66 % (31-73); PLATELET COUNT 412 x10^3/uL (140-400); RED BLOOD COUNT 4.38 x10^6/uL (3.50-5.40); WHITE BLOOD COUNT 10.8 x10^3/uL (4.0-11.0)
[2018-05-25] MEDS: PANTOPRAZOLE 40 MG TABLET.DR. PO SCH (05:30)
[2018-05-25] MEDS: LEVOTHYROXINE 100 MCG TABLET PO SCH (05:30)
[2018-05-25] MEDS: AZITHROMYCIN 500 MG in IV NORMAL SALINE 250ML 250 ML IV SCH (05:30)
[2018-05-25 06:05] LABS: CALCIUM 9.3 mg/dL (8.5-10.1); CREATININE 0.6 mg/dL (0.6-1.0); GFR 97.7
[2018-05-25 07:00] VITALS: BP 141/87
[2018-05-25] MEDS: cefTRIAXone IV Push 1 GM VIAL. IVP SCH (08:00)
[2018-05-25] MEDS: IPRATRPIUM/ALBUTEROL 0.5/2.5MG 3 ML NEBU. NEB SCH ×4 (08:00→19:38)
[2018-05-25] MEDS: BUDESONIDE 0.5 MG/2 ML NEBU. NEB SCH ×2 (08:00→19:38)
[2018-05-25] MEDS: POTASSIUM CHLORIDE 20 MEQ TABLET.ER. PO SCH (09:40)
[2018-05-25] MEDS: guaiFENesin ORAL 200 MG/10 ML LIQUID. PO SCH ×4 (09:40→20:43)
[2018-05-25] MEDS: LACTOBACILLUS RHAMNOSUS GG 1 CAPSULE. PO SCH ×2 (09:41→20:43)
[2018-05-25] MEDS: BENZONATATE 100 MG CAPSULE. PO SCH ×3 (09:41→17:38)
[2018-05-25] MEDS: DICYCLOMINE HCL 10 MG CAPSULE PO SCH (09:41)
[2018-05-25] MEDS: ASPIRIN ENTERIC COATED 325 MG TABLET.DR. PO SCH (09:41)
[2018-05-25] MEDS: traMADol 50 MG TABLET PO PRN (09:41)
[2018-05-25] MEDS: SENNOSIDES/DOCUSATE 8.6/50MG TABLET. PO SCH ×2 (09:41→20:43)
[2018-05-25] MEDS: OSELTAMIVIR 75 MG CAPSULE PO SCH ×2 (09:42→20:43)
[2018-05-25] MEDS: CETIRIZINE HCL 10 MG TABLET. PO SCH (09:42)
[2018-05-25] MEDS: CARVEDILOL 6.25 MG TABLET. PO SCH ×2 (09:42→17:39)
--- NOTE | 2018-05-25 10:47 | PDOC ---
PROGRESS NOTES Chief Complaint Chief Complaint Pneumonia - CAP by history, however it is bilateral, looks interstitial, could also be CHF. needs atypical coverage, zithromax ok and rocephin as well as Tamiflu. consult pulm for abnormal CXR Sepsis - with leukocytosis, tachycardia, given early antibiotics and fluids for pneumonia, however, her BP is high, will give lasix now. Hypoxia - likely from pneumonia/flu/CHF, will diurese. Consult pulm. Wean O2 as tolerated HTN - on coreg, will cont. She denies CHF at this time, however on statin, lasix , and BB she likely has a cardiomyopathy of some sort HLD - cont statin Hyperglycemia - she denies h/o DM, glucose checks, low sliding scale FEN - Cardiac diet PPX - heparin FULL CODE Inpatient for atypical pneumonia at least 2 midnights. Headache Hypokalemia better ? CHF History of Present Illness History of Present Illness She is feeling slightly better, remains tachycardic, headache Appreciate pulmonary No leg edema, no JVD Sounds nasal. Off O2 now. She c/o vaginal bleeding and dark tarry stools on further review Pneumonia - CAP by history, however it is bilateral, looks interstitial, could also be CHF. needs atypical coverage, zithromax ok and rocephin as well as Tamiflu. consult pulm for abnormal CXR Sepsis - with leukocytosis, tachycardia, given early antibiotics and fluids for pneumonia, however, her BP was up, down with meds, will d/c lasix now. Hypoxia - likely from pneumonia/flu/CHF, diuresed. Consult pulm. Wean O2 as tolerated, seems she may be able to get off it today HTN - on coreg, will cont. 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 Vitals Vitals Vital Signs Date Time Temp Pulse Resp B/P (MAP) Pulse Ox O2 Delivery O2 Flow Rate FiO2 05/25/18 09:42 85 141/87 05/25/18 09:41 16 94 Nasal Cannula 2.0 05/25/18 07:00 97.8 97.8 Physical Exam General: Alert, Oriented X3, Cooperative, No acute distress Heart: Normal S1, Normal S2, Other (tachy, sinus) Lungs: Wheezing, Crackles Abdomen: Normal bowel sounds, Soft, No tenderness, No hepatosplenomegaly, No masses Extremities: No clubbing, No cyanosis, No edema, Normal pulses, No tenderness/ swelling Skin: No rashes, No breakdown, No significant lesion Labs LABS Laboratory Tests Test 05/25/18 04:10 White Blood Count 10.8 x10^3/uL (4.0-11.0) Red Blood Count 4.38 x10^6/uL (3.50-5.40) Hemoglobin 12.2 g/dL (12.0-15.5) Hematocrit 35.0 % (36.0-47.0) Mean Corpuscular Volume 80 fL (79-100) Mean Corpuscular Hemoglobin 28 pg (25-35) Mean Corpuscular Hemoglobin Concent 35 g/dL (31-37) Red Cell Distribution Width 15.0 % (11.5-14.5) Platelet Count 412 x10^3/uL (140-400) Neutrophils (%) (Auto) 66 % (31-73) Lymphocytes (%) (Auto) 23 % (24-48) Monocytes (%) (Auto) 8 % (0-9) Eosinophils (%) (Auto) 3 % (0-3) Basophils (%) (Auto) 1 % (0-3) Neutrophils # (Auto) 7.1 x10^3uL (1.8-7.7) Lymphocytes # (Auto) 2.4 x10^3/uL (1.0-4.8) Monocytes # (Auto) 0.9 x10^3/uL (0.0-1.1) Eosinophils # (Auto) 0.3 x10^3/uL (0.0-0.7) Basophils # (Auto) 0.1 x10^3/uL (0.0-0.2) Sodium Level 138 mmol/L (136-145) Potassium Level 4.0 mmol/L (3.5-5.1) Chloride Level 104 mmol/L (98-107) Carbon Dioxide Level 25 mmol/L (21-32) Anion Gap 9 (6-14) Blood Urea Nitrogen 10 mg/dL (7-20) Creatinine 0.6 mg/dL (0.6-1.0) Estimated GFR (Cockcroft-Gault) 97.7 Glucose Level 115 mg/dL (70-99) Calcium Level 9.3 mg/dL (8.5-10.1) Assessment and Plan Assessmemt and Plan Problems Medical Problems: (1) CAP (community acquired pneumonia) Status: Acute Comment Review of Relevant I have reviewed the following items ca (where applicable) has been applied. Labs Laboratory Tests Test 05/24/18 03:15 05/25/18 04:10 White Blood Count 8.4 x10^3/uL (4.0-11.0) 10.8 x10^3/uL (4.0-11.0) Red Blood Count 4.51 x10^6/uL (3.50-5.40) 4.38 x10^6/uL (3.50-5.40) Hemoglobin 12.1 g/dL (12.0-15.5) 12.2 g/dL (12.0-15.5) Hematocrit 36.7 % (36.0-47.0) 35.0 % (36.0-47.0) Mean Corpuscular Volume 81 fL (79-100) 80 fL (79-100) Mean Corpuscular Hemoglobin 27 pg (25-35) 28 pg (25-35) Mean Corpuscular Hemoglobin Concent 33 g/dL (31-37) 35 g/dL (31-37) Red Cell Distribution Width 14.9 % (11.5-14.5) 15.0 % (11.5-14.5) Platelet Count 359 x10^3/uL (140-400) 412 x10^3/uL (140-400) Neutrophils (%) (Auto) 60 % (31-73) 66 % (31-73) Lymphocytes (%) (Auto) 26 % (24-48) 23 % (24-48) Monocytes (%) (Auto) 9 % (0-9) 8 % (0-9) Eosinophils (%) (Auto) 5 % (0-3) 3 % (0-3) Basophils (%) (Auto) 1 % (0-3) 1 % (0-3) Neutrophils # (Auto) 5.1 x10^3uL (1.8-7.7) 7.1 x10^3uL (1.8-7.7) Lymphocytes # (Auto) 2.2 x10^3/uL (1.0-4.8) 2.4 x10^3/uL (1.0-4.8) Monocytes # (Auto) 0.7 x10^3/uL (0.0-1.1) 0.9 x10^3/uL (0.0-1.1) Eosinophils # (Auto) 0.4 x10^3/uL (0.0-0.7) 0.3 x10^3/uL (0.0-0.7) Basophils # (Auto) 0.1 x10^3/uL (0.0-0.2) 0.1 x10^3/uL (0.0-0.2) Sodium Level 141 mmol/L (136-145) 138 mmol/L (136-145) Potassium Level 3.9 mmol/L (3.5-5.1) 4.0 mmol/L (3.5-5.1) Chloride Level 108 mmol/L (98-107) 104 mmol/L (98-107) Carbon Dioxide Level 28 mmol/L (21-32) 25 mmol/L (21-32) Anion Gap 5 (6-14) 9 (6-14) Blood Urea Nitrogen 11 mg/dL (7-20) 10 mg/dL (7-20) Creatinine 0.6 mg/dL (0.6-1.0) 0.6 mg/dL (0.6-1.0) Estimated GFR (Cockcroft-Gault) 97.7 97.7 Glucose Level 107 mg/dL (70-99) 115 mg/dL (70-99) Calcium Level 8.5 mg/dL (8.5-10.1) 9.3 mg/dL (8.5-10.1) Laboratory Tests Test 05/25/18 04:10 White Blood Count 10.8 x10^3/uL (4.0-11.0) Red Blood Count 4.38 x10^6/uL (3.50-5.40) Hemoglobin 12.2 g/dL (12.0-15.5) Hematocrit 35.0 % (36.0-47.0) Mean Corpuscular Volume 80 fL (79-100) Mean Corpuscular Hemoglobin 28 pg (25-35) Mean Corpuscular Hemoglobin Concent 35 g/dL (31-37) Red Cell Distribution Width 15.0 % (11.5-14.5) Platelet Count 412 x10^3/uL (140-400) Neutrophils (%) (Auto) 66 % (31-73) Lymphocytes (%) (Auto) 23 % (24-48) Monocytes (%) (Auto) 8 % (0-9) Eosinophils (%) (Auto) 3 % (0-3) Basophils (%) (Auto) 1 % (0-3) Neutrophils # (Auto) 7.1 x10^3uL (1.8-7.7) Lymphocytes # (Auto) 2.4 x10^3/uL (1.0-4.8) Monocytes # (Auto) 0.9 x10^3/uL (0.0-1.1) Eosinophils # (Auto) 0.3 x10^3/uL (0.0-0.7) Basophils # (Auto) 0.1 x10^3/uL (0.0-0.2) Sodium Level 138 mmol/L (136-145) Potassium Level 4.0 mmol/L (3.5-5.1) Chloride Level 104 mmol/L (98-107) Carbon Dioxide Level 25 mmol/L (21-32) Anion Gap 9 (6-14) Blood Urea Nitrogen 10 mg/dL (7-20) Creatinine 0.6 mg/dL (0.6-1.0) Estimated GFR (Cockcroft-Gault) 97.7 Glucose Level 115 mg/dL (70-99) Calcium Level 9.3 mg/dL (8.5-10.1) Microbiology 05/22/18 Blood Culture - Preliminary, Resulted NO GROWTH AFTER 2 DAYS Medications Current Medications Albuterol/ Ipratropium (Duoneb) 3 ml 1X ONCE NEB Last administered on at 13:05; Start 05/22/18 at 13:00; Stop 05/22/18 at 13:01; Status DC Acetaminophen (Tylenol) 1,000 mg 1X ONCE PO Last administered on 05/22/18at 13: 30; Start 05/22/18 at 13:00; Stop 05/22/18 at 13:01; Status DC Azithromycin 250 ml @ 250 mls/hr 1X ONCE IV Last administered on 05/22/18at 14 :30; Start 05/22/18 at 14:00; Stop 05/22/18 at 14:59; Status DC Ceftriaxone Sodium (Rocephin) 1 gm 1X ONCE IVP Last administered on 05/22/18at 14:29; Start 05/22/18 at 14:00; Stop 05/22/18 at 14:01; Status DC Ondansetron HCl (Zofran) 4 mg PRN Q8HRS PRN IV NAUSEA/VOMITING; Start 05/22/18 at 15:00; Stop 05/23/18 at 12:17; Status DC Sodium Chloride 1,000 ml @ 100 mls/hr Q10H IV Last administered on 05/24/18at 08:48; Start 05/22/18 at 14:51; Stop 05/23/18 at 14:50; Status DC Acetaminophen (Tylenol) 650 mg PRN Q4HRS PRN PO FEVER; Start 05/22/18 at 15:00 ; Stop 05/22/18 at 17:32; Status DC Albuterol/ Ipratropium (Duoneb) 3 ml RTQID NEB Last administered on 05/23/18at 14:39; Start 05/22/18 at 16:00; Stop 05/23/18 at 15:59; Status DC Sodium Chloride 1,000 ml @ 1,000 mls/hr 1X ONCE IV Last administered on at 15:22; Start 05/22/18 at 15:00; Stop 05/22/18 at 15:59; Status DC Aspirin (Ecotrin) 325 mg DAILY PO Last administered on 05/25/18at 09:41; Start 05/23/18 at 09:00 Carvedilol (Coreg) 6.25 mg BIDWMEALS PO Last administered on 05/25/18at 09:42; Start 05/22/18 at 17:30 Dicyclomine HCl (Bentyl) 10 mg DAILY PO Last administered on 05/25/18 09:41; Start 05/23/18 at 09:00 Levothyroxine Sodium (Synthroid) 100 mcg DAILY06 PO Last administered on 05:30; Start 05/23/18 at 06:00 Tramadol HCl (Ultram) 50 mg PRN DAILY PRN PO MILD TO MODERATE PAIN Last administered on 05/25/18 09:41; Start 05/22/18 at 17:15 Pantoprazole Sodium (Protonix) 40 mg DAILYAC PO Last administered on 05/25/18 05:30; Start 05/23/18 at 07:30 Potassium Chloride (Klor-Con) 20 meq DAILYWBKFT PO Last administered on 09:19; Start 05/23/18 at 08:00; Stop 05/23/18 at 09:44; Status DC Simvastatin (Zocor) 40 mg QHS PO Last administered on 05/24/18at 20:39; Start at 21:00 Ondansetron HCl (Zofran) 4 mg PRN Q6HRS PRN IV NAUSEA/VOMITING; Start 05/22/18 at 17:15 Morphine Sulfate (Morphine Sulfate) 1 mg PRN Q1HR PRN IV PAIN; Start 05/22/18 at 17:15 Acetaminophen (Tylenol) 650 mg PRN Q6HRS PRN PO Headaches, Temp > 101.5F Last administered on 05/24/18at 12:47; Start 05/22/18 at 17:15 Senna/Docusate Sodium (Senna Plus) 1 tab BID PO Last administered on 05/25/18at 09:41; Start 05/22/18 at 21:00 Magnesium Hydroxide (Milk Of Magnesia) 2,400 mg PRN Q12HR PRN PO CONSTIPATION; Start 05/22/18 at 17:15 Bisacodyl (Dulcolax Supp) 10 mg PRN DAILY PRN NM CONSTIPATION; Start 05/22/18 at 17:15 Heparin Sodium (Porcine) (Heparin Sodium) 5,000 unit Q8HRS SQ Last administered on 05/23/18 06:17; Start 05/22/18 at 17:00; Stop 05/23/18 at 09:44 ; Status DC Furosemide (Lasix) 40 mg [id number] IVP Last administered on 05/23/18at 09:00; Start 05/22/18 at 17:15; Stop 05/23/18 at 09:45; Status DC Insulin Human Lispro (HumaLOG) 0-5 UNITS TIDWMEALS SQ Last administered on 05/23at 09:36; Start 05/23/18 at 08:00; Stop 05/23/18 at 09:44; Status DC Dextrose (Dextrose 50%-Water Syringe) 12.5 gm PRN Q15MIN PRN IV SEE COMMENTS; Start 05/22/18 at 17:30 Oseltamivir Phosphate (Tamiflu) 30 mg BID PO Last administered on 05/23/18at 09: 19; Start 05/22/18 at 18:00; Stop 05/23/18 at 09:44; Status DC Azithromycin 500 mg/Sodium Chloride 250 ml @ 250 mls/hr Q24H IV Last administered on 05/25/18at 05:30; Start 05/23/18 at 07:00 Ceftriaxone Sodium (Rocephin) 1 gm Q24H IVP Last administered on 05/25/18at 08: 00; Start 05/23/18 at 08:00 Influenza Virus Vaccine (Afluria Trivalent [id number] Syringe) 0.5 ml ONCE ONCE VAX IM ; Start 05/23/18 at 09:00; Stop 05/23/18 at 09:01; Status DC Potassium Chloride (Klor-Con) 40 meq DAILYWBKFT PO Last administered on at 09:40; Start 05/23/18 at 09:45 Guaifenesin (Robitussin Dm) 10 ml PRN Q6HRS PRN PO COUGH Last administered on at 09:40; Start 05/23/18 at 09:45 Furosemide (Lasix) 40 mg DAILY IVP ; Start 05/24/18 at 09:00; Stop 05/24/18 at 09:00; Status DC Lactobacillus Rhamnosus (Culturelle) 1 cap BID PO Last administered on at 09:41; Start 05/23/18 at 21:00 Cetirizine HCl (ZyrTEC) 10 mg DAILY PO Last administered on 05/25/18at 09:42; Start 05/23/18 at 12:30 Benzonatate (Tessalon Perle) 100 mg [id number] PO Last administered on 05/25/18 09 :41; Start 05/23/18 at 12:30 Guaifenesin (Robitussin) 200 mg QID PO Last administered on 05/25/18at 09:40; Start 05/23/18 at 13:00 Ibuprofen (Motrin) 600 mg 1X ONCE PO Last administered on 05/23/18at 12:30; Start 05/23/18 at 12:30; Stop 05/23/18 at 12:31; Status DC Ibuprofen (Motrin) 400 mg PRN Q6HRS PRN PO INFLAMMATION Last administered on 16:06; Start 05/23/18 at 12:00 Albuterol/ Ipratropium (Duoneb) 3 ml RTQID NEB Last administered on 05/25/18 08:00; Start 05/23/18 at 20:30 Budesonide (Pulmicort) 0.5 mg RTBID NEB Last administered on 05/25/18 08:00; Start 05/24/18 at 20:00 Oseltamivir Phosphate (Tamiflu) 75 mg BID PO Last administered on 05/25/18at 09: 42; Start 05/24/18 at 21:00; Stop 05/28/18 at 09:01 Active Scripts Active Reported Protonix (Pantoprazole Sodium) 20 Mg Tablet.dr 40 Mg PO DAILY Ondansetron Odt (Ondansetron) 4 Mg Tab.rapdis 1 Tab PO PRN Q6-8HRS Furosemide 20 Mg Tablet 1 Tab PO DAILY Simvastatin 20 Mg Tablet 1 Tab PO QHS [place] 5-325 Tablet (Acetaminophen/Hydrocodone Bitart) 1 Each Tablet 1 Tab PO BID Carvedilol (Carvedilol) 6.25 Mg Tablet 6.25 Mg PO BID Dicyclomine Hcl 10 Mg Capsule 10 Mg PO DAILY Levothyroxine Sodium 100 Mcg Tablet 100 Mcg PO DAILYAC K-Tab ER (Potassium Chloride) 20 Meq Tablet.er 20 Meq PO DAILY Tramadol Hcl 50 Mg Tablet 50 Mg PO DAILY PRN Tramadol Hcl 50 Mg Tablet 50 Mg PO PRN Q4HRS PRN Vitals/I & O Vital Sign - Last 24 Hours 05/24/18 05/24/18 05/24/18 05/24/18 11:00 11:36 12:47 13:47 Temp 98.3 98.3 Pulse 78 Resp 18 18 18 B/P (MAP) 140/76 (97) Pulse Ox 95 96 O2 Delivery 2L PRN Nasal Cannula Nasal Cannula Room Air O2 Flow Rate 2.0 05/24/18 05/24/18 05/24/18 05/24/18 15:00 15:26 17:28 19:05 Temp 98.3 98.3 Pulse 72 72 Resp 18 B/P (MAP) 122/60 (80) 122/60 Pulse Ox 95 96 O2 Delivery 2L PRN Nasal Cannula Nasal Cannula O2 Flow Rate 2.0 2.0 05/24/18 05/24/18 05/24/18 05/24/18 19:44 19:45 19:46 23:00 Temp 98.4 98.5 98.4 98.5 Pulse 72 76 Resp 19 19 B/P (MAP) 118/63 (81) 126/45 (72) Pulse Ox 98 95 98 94 O2 Delivery Nasal Cannula Room Air Nasal Cannula Room Air O2 Flow Rate 2.0 2.0 05/25/18 05/25/18 05/25/18 05/25/18 03:00 07:00 08:00 08:00 Temp 98.3 97.8 98.3 97.8 Pulse 81 85 Resp 18 20 B/P (MAP) 118/70 (86) 141/87 (105) Pulse Ox 91 94 94 O2 Delivery Nasal Cannula Room Air Room Air Room Air O2 Flow Rate 2.0 05/25/18 05/25/18 09:41 09:42 Pulse 85 Resp 16 B/P (MAP) 141/87 Pulse Ox 94 O2 Delivery Nasal Cannula O2 Flow Rate 2.0 Intake and Output 05/24/18 05/24/18 05/25/18 15:01 23:01 07:01 Intake Total 600 ml 300 ml 450 ml Balance 600 ml 300 ml 450 ml FINA KOENIG MD May 25, 2018 10:47
--- NOTE | 2018-05-25 10:52 | PDOC ---
PULMONARY PROGRESS NOTES Subjective less cough Vitals Vital Signs Date Time Temp Pulse Resp B/P (MAP) Pulse Ox O2 Delivery O2 Flow Rate FiO2 05/25/18 09:42 85 141/87 05/25/18 09:41 16 94 Nasal Cannula 2.0 05/25/18 07:00 97.8 97.8 General: Alert, No acute distress Lungs: Clear Cardiovascular: S1 Abdomen: Soft Neuro Exam: Alert Extremities: No Edema Skin: Warm Labs Laboratory Tests Test 05/24/18 03:15 05/25/18 04:10 White Blood Count 8.4 x10^3/uL (4.0-11.0) 10.8 x10^3/uL (4.0-11.0) Red Blood Count 4.51 x10^6/uL (3.50-5.40) 4.38 x10^6/uL (3.50-5.40) Hemoglobin 12.1 g/dL (12.0-15.5) 12.2 g/dL (12.0-15.5) Hematocrit 36.7 % (36.0-47.0) 35.0 % (36.0-47.0) Mean Corpuscular Volume 81 fL (79-100) 80 fL (79-100) Mean Corpuscular Hemoglobin 27 pg (25-35) 28 pg (25-35) Mean Corpuscular Hemoglobin Concent 33 g/dL (31-37) 35 g/dL (31-37) Red Cell Distribution Width 14.9 % (11.5-14.5) 15.0 % (11.5-14.5) Platelet Count 359 x10^3/uL (140-400) 412 x10^3/uL (140-400) Neutrophils (%) (Auto) 60 % (31-73) 66 % (31-73) Lymphocytes (%) (Auto) 26 % (24-48) 23 % (24-48) Monocytes (%) (Auto) 9 % (0-9) 8 % (0-9) Eosinophils (%) (Auto) 5 % (0-3) 3 % (0-3) Basophils (%) (Auto) 1 % (0-3) 1 % (0-3) Neutrophils # (Auto) 5.1 x10^3uL (1.8-7.7) 7.1 x10^3uL (1.8-7.7) Lymphocytes # (Auto) 2.2 x10^3/uL (1.0-4.8) 2.4 x10^3/uL (1.0-4.8) Monocytes # (Auto) 0.7 x10^3/uL (0.0-1.1) 0.9 x10^3/uL (0.0-1.1) Eosinophils # (Auto) 0.4 x10^3/uL (0.0-0.7) 0.3 x10^3/uL (0.0-0.7) Basophils # (Auto) 0.1 x10^3/uL (0.0-0.2) 0.1 x10^3/uL (0.0-0.2) Sodium Level 141 mmol/L (136-145) 138 mmol/L (136-145) Potassium Level 3.9 mmol/L (3.5-5.1) 4.0 mmol/L (3.5-5.1) Chloride Level 108 mmol/L (98-107) 104 mmol/L (98-107) Carbon Dioxide Level 28 mmol/L (21-32) 25 mmol/L (21-32) Anion Gap 5 (6-14) 9 (6-14) Blood Urea Nitrogen 11 mg/dL (7-20) 10 mg/dL (7-20) Creatinine 0.6 mg/dL (0.6-1.0) 0.6 mg/dL (0.6-1.0) Estimated GFR (Cockcroft-Gault) 97.7 97.7 Glucose Level 107 mg/dL (70-99) 115 mg/dL (70-99) Calcium Level 8.5 mg/dL (8.5-10.1) 9.3 mg/dL (8.5-10.1) Laboratory Tests Test 05/25/18 04:10 White Blood Count 10.8 x10^3/uL (4.0-11.0) Red Blood Count 4.38 x10^6/uL (3.50-5.40) Hemoglobin 12.2 g/dL (12.0-15.5) Hematocrit 35.0 % (36.0-47.0) Mean Corpuscular Volume 80 fL (79-100) Mean Corpuscular Hemoglobin 28 pg (25-35) Mean Corpuscular Hemoglobin Concent 35 g/dL (31-37) Red Cell Distribution Width 15.0 % (11.5-14.5) Platelet Count 412 x10^3/uL (140-400) Neutrophils (%) (Auto) 66 % (31-73) Lymphocytes (%) (Auto) 23 % (24-48) Monocytes (%) (Auto) 8 % (0-9) Eosinophils (%) (Auto) 3 % (0-3) Basophils (%) (Auto) 1 % (0-3) Neutrophils # (Auto) 7.1 x10^3uL (1.8-7.7) Lymphocytes # (Auto) 2.4 x10^3/uL (1.0-4.8) Monocytes # (Auto) 0.9 x10^3/uL (0.0-1.1) Eosinophils # (Auto) 0.3 x10^3/uL (0.0-0.7) Basophils # (Auto) 0.1 x10^3/uL (0.0-0.2) Sodium Level 138 mmol/L (136-145) Potassium Level 4.0 mmol/L (3.5-5.1) Chloride Level 104 mmol/L (98-107) Carbon Dioxide Level 25 mmol/L (21-32) Anion Gap 9 (6-14) Blood Urea Nitrogen 10 mg/dL (7-20) Creatinine 0.6 mg/dL (0.6-1.0) Estimated GFR (Cockcroft-Gault) 97.7 Glucose Level 115 mg/dL (70-99) Calcium Level 9.3 mg/dL (8.5-10.1) Medications Active Scripts Medications Dose Route/Sig Max Daily Dose Days Date Category Protonix (Pantoprazole Sodium) 20 Mg Tablet.dr 40 Mg PO DAILY 05/22/18 Reported Ondansetron Odt (Ondansetron) 4 Mg Tab.rapdis 1 Tab PO PRN Q6-8HRS 05/22/18 Reported Furosemide 20 Mg Tablet 1 Tab PO DAILY 05/22/18 Reported Simvastatin 20 Mg Tablet 1 Tab PO QHS 05/22/18 Reported [place] 5-325 Tablet (Acetaminophen/Hydrocodone Bitart) 1 Each Tablet 1 Tab PO BID 05/22/18 Reported Carvedilol (Carvedilol) 6.25 Mg Tablet 6.25 Mg PO BID 10/13/13 Reported Dicyclomine Hcl 10 Mg Capsule 10 Mg PO DAILY 10/13/13 Reported Levothyroxine Sodium 100 Mcg Tablet 100 Mcg PO DAILYAC 10/13/13 Reported K-Tab ER (Potassium Chloride) 20 Meq Tablet.er 20 Meq PO DAILY 10/13/13 Reported Tramadol Hcl 50 Mg Tablet 50 Mg PO DAILY PRN 10/13/13 Reported Tramadol Hcl 50 Mg Tablet 50 Mg PO PRN Q4HRS PRN 10/13/13 Reported Impression . 1. Persistent cough for the last 5 days with flu-like symptoms. Suspect that she likely has a pneumonia; now improving slowly 2. No significant history of tobacco use. 3. Influenza screen negative. Plan . 1. Continue with present antibiotics. 2. Cough suppressant. 3. Nebs, add Pulmicort 4. CT chest reviewed. She has basal pneumonia. Not convinced that she has any sig fibrosis or ILD 5. repeat cxr Saturday TANIA LOPEZ MD May 25, 2018 10:52
[2018-05-25 11:00] VITALS: BP 140/80
--- NOTE | 2018-05-25 12:44 | RAD ---
PELVIS W/TV Clinical Indication: Post menopausal bleeding Comparison: Pelvic ultrasound November 06, 2011. TECHNIQUE: Real-time ultrasound imaging of the pelvis using transabdominal and transvaginal window is performed. Findings: The ovaries are not seen. The uterus measures 8.3 x 4.8 x 2.9 cm. The uterus is heterogeneous. Endometrial stripe is normal measuring 2 mm. No pelvic free fluid. No evidence of adnexal mass. IMPRESSION: The endometrial stripe is normal in a postmenopausal female with bleeding. Electronically signed by: William Holley MD (05/25/2018 12:39 PM) [facility]
--- NOTE | 2018-05-25 13:49 | PDOC2 ---
GI CONSULT Reason For Consult: "Tarry stools" HPI: HPI: Pleasant 72 y/o female admitted with pulmonary issues and headache. A history of "tarry stools" was obtained and we were asked to see. A bit of a language barrier, but seems to indicate black stools, consistency unclear. No N, V, hematemesis. H/o GERD and by summary page, taking PPI daily. Denies dysphagia. Unclear prior ulcer or GB issues. Has some LUQ (roughly) discomfort worse pc. Non-smoker and no alcohol. Appetite a bit off with current illness. Weight stable. She seems to indicate prior EGD and colonoscopy, though hard to document where. Hemoglobin and BUN have been stable throughout her stay. PMH: PMH: ASHD, HTN, pneumonia (atypical?), hypothyroid. No prior surgery. FH: Family History: CAD, Hyperlipidemia, Hypertension Social History: Smoke: No ALCOHOL: none Drugs: None ROS: GEN: Denies fevers, chills, sweats HEENT: Denies blurred vision, sore throat. Has headache. CV: Denies chest pain RESP: Cough, dyspnea GI: Per HPI : Denies hematuria, dysuria. Vaginal bleeding. ENDO: Denies weight changes NEURO: Denies confusion, dizziness MSK: Denies weakness, joint pain/swelling SKIN: Denies jaundice, pruritus Vitals: Vitals: Vital Signs Date Time Temp Pulse Resp B/P (MAP) Pulse Ox O2 Delivery O2 Flow Rate FiO2 05/25/18 11:51 Room Air 05/25/18 11:00 98.0 93 20 140/80 (100) 93 98.0 05/25/18 10:41 2.0 Labs: Labs: Laboratory Tests Test 05/25/18 04:10 White Blood Count 10.8 x10^3/uL (4.0-11.0) Red Blood Count 4.38 x10^6/uL (3.50-5.40) Hemoglobin 12.2 g/dL (12.0-15.5) Hematocrit 35.0 % (36.0-47.0) Mean Corpuscular Volume 80 fL (79-100) Mean Corpuscular Hemoglobin 28 pg (25-35) Mean Corpuscular Hemoglobin Concent 35 g/dL (31-37) Red Cell Distribution Width 15.0 % (11.5-14.5) Platelet Count 412 x10^3/uL (140-400) Neutrophils (%) (Auto) 66 % (31-73) Lymphocytes (%) (Auto) 23 % (24-48) Monocytes (%) (Auto) 8 % (0-9) Eosinophils (%) (Auto) 3 % (0-3) Basophils (%) (Auto) 1 % (0-3) Neutrophils # (Auto) 7.1 x10^3uL (1.8-7.7) Lymphocytes # (Auto) 2.4 x10^3/uL (1.0-4.8) Monocytes # (Auto) 0.9 x10^3/uL (0.0-1.1) Eosinophils # (Auto) 0.3 x10^3/uL (0.0-0.7) Basophils # (Auto) 0.1 x10^3/uL (0.0-0.2) Sodium Level 138 mmol/L (136-145) Potassium Level 4.0 mmol/L (3.5-5.1) Chloride Level 104 mmol/L (98-107) Carbon Dioxide Level 25 mmol/L (21-32) Anion Gap 9 (6-14) Blood Urea Nitrogen 10 mg/dL (7-20) Creatinine 0.6 mg/dL (0.6-1.0) Estimated GFR (Cockcroft-Gault) 97.7 Glucose Level 115 mg/dL (70-99) Calcium Level 9.3 mg/dL (8.5-10.1) Borderline low MCV and mildly elevated RDW. Low iron? Allergies: Coded Allergies: No Known Drug Allergies (Unverified , 10/13/13) Medications: Current Medications Medications (Trade) Dose Ordered Sig/Kailey Route PRN Reason Start Time Stop Time Status Last Admin Dose Admin Budesonide (Pulmicort) 0.5 mg RTBID NEB 05/24/18 20:00 05/25/18 08:00 Oseltamivir Phosphate (Tamiflu) 75 mg BID PO 05/24/18 21:00 05/28/18 09:01 05/25/18 09:42 PE: GEN: NAD HEENT: Atraumatic, PERRLA LUNGS: CTAB HEART: RRR, no murmurs ABD: NABS, S/ND, mild left-sided tenderness not locallized to ribs from LUQ inferiorly, no masses EXTREMITY: No edema SKIN: No rashes, no jaundice NEURO/PSYCH: A & O �3 A/P: A/P: IMP: "Melena?" vs. pseudomelena. Little to suggest UGI bleeding and supposedly taking daily PPI. Occasionally colonic lesion will present with melena. Some labs suggest possibility of iron deficiency though also having vaginal bleeding as well. GERD REC: Start/continue PPI. Stool for FOBT, iron studies. Continue treatment of presenting issue. Other pending. Thanks. JAKY DE GUZMAN MD May 25, 2018 13:49
[2018-05-25 15:00] VITALS: BP 122/75
[2018-05-25 18:30] LABS: FECAL OB PT NEGATIVE (NEG)
[2018-05-25] MEDS: ACETAMINOPHEN 325 MG TABLET. PO PRN (18:39)
[2018-05-25 19:00] VITALS: BP 115/70
[2018-05-25] MEDS: SIMVASTATIN 40 MG TABLET. PO SCH (20:43)
[2018-05-25 23:00] VITALS: BP 91/50
[2018-05-26 03:00] VITALS: BP 136/84
[2018-05-26] MEDS: PANTOPRAZOLE 40 MG TABLET.DR. PO SCH (05:30)
[2018-05-26] MEDS: LEVOTHYROXINE 100 MCG TABLET PO SCH (05:30)
[2018-05-26] MEDS: AZITHROMYCIN 500 MG in IV NORMAL SALINE 250ML 250 ML IV SCH (05:30)
[2018-05-26 06:45] LABS: BASO # 0.1 x10^3/uL (0.0-0.2); BASO % 1 % (0-3); EOS # 0.3 x10^3/uL (0.0-0.7); EOS % 3 % (0-3); HEMATOCRIT 36.9 % (36.0-47.0); HEMOGLOBIN 12.2 g/dL (12.0-15.5); LYMPH # 2.3 x10^3/uL (1.0-4.8); LYMPH % 24 % (24-48); MEAN CORPUSCULAR HEMOGLOBIN 27 pg (25-35); MEAN CORPUSCULAR HGB CONC 33 g/dL (31-37); MEAN CORPUSCULAR VOLUME 80 fL (79-100); MONO # 0.8 x10^3/uL (0.0-1.1); MONO % 8 % (0-9); NEUT # 6.3 x10^3uL (1.8-7.7); NEUT % 64 % (31-73); PLATELET COUNT 425 x10^3/uL (140-400); RED BLOOD COUNT 4.59 x10^6/uL (3.50-5.40); RED CELL DISTRIBUTION WIDTH 15.1 % (11.5-14.5); WHITE BLOOD COUNT 9.8 x10^3/uL (4.0-11.0)
[2018-05-26 07:00] VITALS: BP 129/66
[2018-05-26 07:11] LABS: CALCIUM 8.7 mg/dL (8.5-10.1); CREATININE 0.6 mg/dL (0.6-1.0); GFR 97.7; POTASSIUM 4.2 mmol/L (3.5-5.1)
[2018-05-26] MEDS: cefTRIAXone IV Push 1 GM VIAL. IVP SCH (08:34)
[2018-05-26] MEDS: ASPIRIN ENTERIC COATED 325 MG TABLET.DR. PO SCH (08:35)
[2018-05-26] MEDS: POTASSIUM CHLORIDE 20 MEQ TABLET.ER. PO SCH (08:35)
[2018-05-26] MEDS: guaiFENesin ORAL 200 MG/10 ML LIQUID. PO SCH ×4 (08:35→20:11)
[2018-05-26] MEDS: LACTOBACILLUS RHAMNOSUS GG 1 CAPSULE. PO SCH ×2 (08:35→20:10)
[2018-05-26] MEDS: OSELTAMIVIR 75 MG CAPSULE PO SCH (08:35)
[2018-05-26] MEDS: BENZONATATE 100 MG CAPSULE. PO SCH ×3 (08:35→20:10)
[2018-05-26] MEDS: SENNOSIDES/DOCUSATE 8.6/50MG TABLET. PO SCH ×2 (08:35→20:10)
--- NOTE | 2018-05-26 08:35 | RAD ---
AP portable chest radiograph 05/26/2018 Clinical History: Pneumonia. Shortness of breath. An AP erect portable digital radiograph of the chest was obtained. Comparison study is dated 05/22/2018. The cardiac silhouette is borderline enlarged. The thoracic aorta is mildly tortuous. Atherosclerotic calcification of the thoracic aorta is seen. Slightly improved congestive changes are seen involving both lungs. Improving left lower lobe subsegmental atelectasis and/or infiltrate is noted. No pneumothorax or pleural effusion is seen. The osseous structures are unchanged. Impression: 1. Slightly improved congestive changes. 2. Improving left lower lobe subsegmental atelectasis and/or infiltrate. Electronically signed by: Asad Dejesus MD (05/26/2018 8:31 AM) [facility] [id number]
[2018-05-26] MEDS: CARVEDILOL 6.25 MG TABLET. PO SCH ×2 (08:36→17:00)
[2018-05-26] MEDS: DICYCLOMINE HCL 10 MG CAPSULE PO SCH (08:36)
[2018-05-26] MEDS: CETIRIZINE HCL 10 MG TABLET. PO SCH (08:36)
[2018-05-26] MEDS: IPRATRPIUM/ALBUTEROL 0.5/2.5MG 3 ML NEBU. NEB SCH ×4 (08:49→20:23)
[2018-05-26] MEDS: BUDESONIDE 0.5 MG/2 ML NEBU. NEB SCH ×2 (08:49→20:23)
[2018-05-26] MEDS: ACETAMINOPHEN 325 MG TABLET. PO PRN (08:50)
[2018-05-26 10:52] VITALS: BP 132/68
--- NOTE | 2018-05-26 11:57 | PDOC ---
PROGRESS NOTES Chief Complaint Chief Complaint CC: CAP History of Present Illness History of Present Illness Patient seen and examined. She is a pleasant 72 y/o Romanian speaking female. She has no new complaints this morning. Discussed possible discharge today or tomorrow if she is feeling better. Vitals Vitals Vital Signs Date Time Temp Pulse Resp B/P (MAP) Pulse Ox O2 Delivery O2 Flow Rate FiO2 05/26/18 10:52 97.9 79 20 132/68 (89) 95 Room Air 97.9 05/26/18 08:00 2.0 Physical Exam General: Alert, Oriented X3, Cooperative, No acute distress Heart: Regular rate, Normal S1, Normal S2, No murmurs, Other (tachy, sinus) Lungs: Clear Abdomen: Normal bowel sounds, Soft, No tenderness, No hepatosplenomegaly, No masses Extremities: No clubbing, No cyanosis, No edema, Normal pulses, No tenderness/ swelling Skin: No rashes, No breakdown, No significant lesion Labs LABS Laboratory Tests Test 05/25/18 16:20 05/26/18 06:20 Stool Occult Blood Negative (NEG) White Blood Count 9.8 x10^3/uL (4.0-11.0) Red Blood Count 4.59 x10^6/uL (3.50-5.40) Hemoglobin 12.2 g/dL (12.0-15.5) Hematocrit 36.9 % (36.0-47.0) Mean Corpuscular Volume 80 fL (79-100) Mean Corpuscular Hemoglobin 27 pg (25-35) Mean Corpuscular Hemoglobin Concent 33 g/dL (31-37) Red Cell Distribution Width 15.1 % (11.5-14.5) Platelet Count 425 x10^3/uL (140-400) Neutrophils (%) (Auto) 64 % (31-73) Lymphocytes (%) (Auto) 24 % (24-48) Monocytes (%) (Auto) 8 % (0-9) Eosinophils (%) (Auto) 3 % (0-3) Basophils (%) (Auto) 1 % (0-3) Neutrophils # (Auto) 6.3 x10^3uL (1.8-7.7) Lymphocytes # (Auto) 2.3 x10^3/uL (1.0-4.8) Monocytes # (Auto) 0.8 x10^3/uL (0.0-1.1) Eosinophils # (Auto) 0.3 x10^3/uL (0.0-0.7) Basophils # (Auto) 0.1 x10^3/uL (0.0-0.2) Sodium Level 140 mmol/L (136-145) Potassium Level 4.2 mmol/L (3.5-5.1) Chloride Level 105 mmol/L (98-107) Carbon Dioxide Level 29 mmol/L (21-32) Anion Gap 6 (6-14) Blood Urea Nitrogen 16 mg/dL (7-20) Creatinine 0.6 mg/dL (0.6-1.0) Estimated GFR (Cockcroft-Gault) 97.7 Glucose Level 117 mg/dL (70-99) Calcium Level 8.7 mg/dL (8.5-10.1) Review of Systems Review of Systems Heart: denies chest pain Lungs: denies soa Integument: denies rashes Assessment and Plan Assessmemt and Plan Assessment: 1. Pneumonia 2. Sepsis 3. Hypoxia 4. HTN 5. HLD 6. Hyperglycemia Plan: 1. continue antibiotics 2 Duo Nebs treatment 3. 02 4. Pulm consult 5. Labs 6. Home meds 7. PT/OT 8. Tylenol 650 Q6 Comment Review of Relevant I have reviewed the following items ca (where applicable) has been applied. Labs Laboratory Tests Test 05/25/18 04:10 05/25/18 04:30 05/25/18 16:20 05/26/18 06:20 White Blood Count 10.8 x10^3/uL (4.0-11.0) 9.8 x10^3/uL (4.0-11.0) Red Blood Count 4.38 x10^6/uL (3.50-5.40) 4.59 x10^6/uL (3.50-5.40) Hemoglobin 12.2 g/dL (12.0-15.5) 12.2 g/dL (12.0-15.5) Hematocrit 35.0 % (36.0-47.0) 36.9 % (36.0-47.0) Mean Corpuscular Volume 80 fL (79-100) 80 fL (79-100) Mean Corpuscular Hemoglobin 28 pg (25-35) 27 pg (25-35) Mean Corpuscular Hemoglobin Concent 35 g/dL (31-37) 33 g/dL (31-37) Red Cell Distribution Width 15.0 % (11.5-14.5) 15.1 % (11.5-14.5) Platelet Count 412 x10^3/uL (140-400) 425 x10^3/uL (140-400) Neutrophils (%) (Auto) 66 % (31-73) 64 % (31-73) Lymphocytes (%) (Auto) 23 % (24-48) 24 % (24-48) Monocytes (%) (Auto) 8 % (0-9) 8 % (0-9) Eosinophils (%) (Auto) 3 % (0-3) 3 % (0-3) Basophils (%) (Auto) 1 % (0-3) 1 % (0-3) Neutrophils # (Auto) 7.1 x10^3uL (1.8-7.7) 6.3 x10^3uL (1.8-7.7) Lymphocytes # (Auto) 2.4 x10^3/uL (1.0-4.8) 2.3 x10^3/uL (1.0-4.8) Monocytes # (Auto) 0.9 x10^3/uL (0.0-1.1) 0.8 x10^3/uL (0.0-1.1) Eosinophils # (Auto) 0.3 x10^3/uL (0.0-0.7) 0.3 x10^3/uL (0.0-0.7) Basophils # (Auto) 0.1 x10^3/uL (0.0-0.2) 0.1 x10^3/uL (0.0-0.2) Sodium Level 138 mmol/L (136-145) 140 mmol/L (136-145) Potassium Level 4.0 mmol/L (3.5-5.1) 4.2 mmol/L (3.5-5.1) Chloride Level 104 mmol/L (98-107) 105 mmol/L (98-107) Carbon Dioxide Level 25 mmol/L (21-32) 29 mmol/L (21-32) Anion Gap 9 (6-14) 6 (6-14) Blood Urea Nitrogen 10 mg/dL (7-20) 16 mg/dL (7-20) Creatinine 0.6 mg/dL (0.6-1.0) 0.6 mg/dL (0.6-1.0) Estimated GFR (Cockcroft-Gault) 97.7 97.7 Glucose Level 115 mg/dL (70-99) 117 mg/dL (70-99) Calcium Level 9.3 mg/dL (8.5-10.1) 8.7 mg/dL (8.5-10.1) Iron Level 35 ug/dL (50-170) Total Iron Binding Capacity 241 ug/dL (250-450) Iron Saturation 15 % (15-34) Stool Occult Blood Negative (NEG) Laboratory Tests Test 05/25/18 16:20 05/26/18 06:20 Stool Occult Blood Negative (NEG) White Blood Count 9.8 x10^3/uL (4.0-11.0) Red Blood Count 4.59 x10^6/uL (3.50-5.40) Hemoglobin 12.2 g/dL (12.0-15.5) Hematocrit 36.9 % (36.0-47.0) Mean Corpuscular Volume 80 fL (79-100) Mean Corpuscular Hemoglobin 27 pg (25-35) Mean Corpuscular Hemoglobin Concent 33 g/dL (31-37) Red Cell Distribution Width 15.1 % (11.5-14.5) Platelet Count 425 x10^3/uL (140-400) Neutrophils (%) (Auto) 64 % (31-73) Lymphocytes (%) (Auto) 24 % (24-48) Monocytes (%) (Auto) 8 % (0-9) Eosinophils (%) (Auto) 3 % (0-3) Basophils (%) (Auto) 1 % (0-3) Neutrophils # (Auto) 6.3 x10^3uL (1.8-7.7) Lymphocytes # (Auto) 2.3 x10^3/uL (1.0-4.8) Monocytes # (Auto) 0.8 x10^3/uL (0.0-1.1) Eosinophils # (Auto) 0.3 x10^3/uL (0.0-0.7) Basophils # (Auto) 0.1 x10^3/uL (0.0-0.2) Sodium Level 140 mmol/L (136-145) Potassium Level 4.2 mmol/L (3.5-5.1) Chloride Level 105 mmol/L (98-107) Carbon Dioxide Level 29 mmol/L (21-32) Anion Gap 6 (6-14) Blood Urea Nitrogen 16 mg/dL (7-20) Creatinine 0.6 mg/dL (0.6-1.0) Estimated GFR (Cockcroft-Gault) 97.7 Glucose Level 117 mg/dL (70-99) Calcium Level 8.7 mg/dL (8.5-10.1) Microbiology 05/22/18 Blood Culture - Preliminary, Resulted NO GROWTH AFTER 3 DAYS Medications Current Medications Albuterol/ Ipratropium (Duoneb) 3 ml 1X ONCE NEB Last administered on at 13:05; Start 05/22/18 at 13:00; Stop 05/22/18 at 13:01; Status DC Acetaminophen (Tylenol) 1,000 mg 1X ONCE PO Last administered on 05/22/18at 13: 30; Start 05/22/18 at 13:00; Stop 05/22/18 at 13:01; Status DC Azithromycin 250 ml @ 250 mls/hr 1X ONCE IV Last administered on 05/22/18at 14 :30; Start 05/22/18 at 14:00; Stop 05/22/18 at 14:59; Status DC Ceftriaxone Sodium (Rocephin) 1 gm 1X ONCE IVP Last administered on 05/22/18at 14:29; Start 05/22/18 at 14:00; Stop 05/22/18 at 14:01; Status DC Ondansetron HCl (Zofran) 4 mg PRN Q8HRS PRN IV NAUSEA/VOMITING; Start 05/22/18 at 15:00; Stop 05/23/18 at 12:17; Status DC Sodium Chloride 1,000 ml @ 100 mls/hr Q10H IV Last administered on 05/24/18at 08:48; Start 05/22/18 at 14:51; Stop 05/23/18 at 14:50; Status DC Acetaminophen (Tylenol) 650 mg PRN Q4HRS PRN PO FEVER; Start 05/22/18 at 15:00 ; Stop 05/22/18 at 17:32; Status DC Albuterol/ Ipratropium (Duoneb) 3 ml RTQID NEB Last administered on 05/23/18at 14:39; Start 05/22/18 at 16:00; Stop 05/23/18 at 15:59; Status DC Sodium Chloride 1,000 ml @ 1,000 mls/hr 1X ONCE IV Last administered on at 15:22; Start 05/22/18 at 15:00; Stop 05/22/18 at 15:59; Status DC Aspirin (Ecotrin) 325 mg DAILY PO Last administered on 05/26/18at 08:35; Start 05/23/18 at 09:00 Carvedilol (Coreg) 6.25 mg BIDWMEALS PO Last administered on 05/26/18at 08:36; Start 05/22/18 at 17:30 Dicyclomine HCl (Bentyl) 10 mg DAILY PO Last administered on 05/26/18at 08:36; Start 05/23/18 at 09:00 Levothyroxine Sodium (Synthroid) 100 mcg DAILY06 PO Last administered on 05:30; Start 05/23/18 at 06:00 Tramadol HCl (Ultram) 50 mg PRN DAILY PRN PO MILD TO MODERATE PAIN Last administered on 05/25/18at 09:41; Start 05/22/18 at 17:15 Pantoprazole Sodium (Protonix) 40 mg DAILYAC PO Last administered on 05/26/18at 05:30; Start 05/23/18 at 07:30 Potassium Chloride (Klor-Con) 20 meq DAILYWBKFT PO Last administered on at 09:19; Start 05/23/18 at 08:00; Stop 05/23/18 at 09:44; Status DC Simvastatin (Zocor) 40 mg QHS PO Last administered on 05/25/18at 20:43; Start at 21:00 Ondansetron HCl (Zofran) 4 mg PRN Q6HRS PRN IV NAUSEA/VOMITING; Start 05/22/18 at 17:15 Morphine Sulfate (Morphine Sulfate) 1 mg PRN Q1HR PRN IV PAIN; Start 05/22/18 at 17:15 Acetaminophen (Tylenol) 650 mg PRN Q6HRS PRN PO Headaches, Temp > 101.5F Last administered on 05/26/18at 08:50; Start 05/22/18 at 17:15 Senna/Docusate Sodium (Senna Plus) 1 tab BID PO Last administered on 05/26/18at 08:35; Start 05/22/18 at 21:00 Magnesium Hydroxide (Milk Of Magnesia) 2,400 mg PRN Q12HR PRN PO CONSTIPATION; Start 05/22/18 at 17:15 Bisacodyl (Dulcolax Supp) 10 mg PRN DAILY PRN OR CONSTIPATION; Start 05/22/18 at 17:15 Heparin Sodium (Porcine) (Heparin Sodium) 5,000 unit Q8HRS SQ Last administered on 05/23/18at 06:17; Start 05/22/18 at 17:00; Stop 05/23/18 at 09:44 ; Status DC Furosemide (Lasix) 40 mg BID92 IVP Last administered on 05/23/18at 09:00; Start 05/22/18 at 17:15; Stop 05/23/18 at 09:45; Status DC Insulin Human Lispro (HumaLOG) 0-5 UNITS TIDWMEALS SQ Last administered on 05/23at 09:36; Start 05/23/18 at 08:00; Stop 05/23/18 at 09:44; Status DC Dextrose (Dextrose 50%-Water Syringe) 12.5 gm PRN Q15MIN PRN IV SEE COMMENTS; Start 05/22/18 at 17:30 Oseltamivir Phosphate (Tamiflu) 30 mg BID PO Last administered on 05/23/18at 09: 19; Start 05/22/18 at 18:00; Stop 05/23/18 at 09:44; Status DC Azithromycin 500 mg/Sodium Chloride 250 ml @ 250 mls/hr Q24H IV Last administered on 05/26/18at 05:30; Start 05/23/18 at 07:00 Ceftriaxone Sodium (Rocephin) 1 gm Q24H IVP Last administered on 05/26/18at 08: 34; Start 05/23/18 at 08:00 Influenza Virus Vaccine (Afluria Trivalent [id number] Syringe) 0.5 ml ONCE ONCE VAX IM ; Start 05/23/18 at 09:00; Stop 05/23/18 at 09:01; Status DC Potassium Chloride (Klor-Con) 40 meq DAILYWBKFT PO Last administered on 08:35; Start 05/23/18 at 09:45 Guaifenesin (Robitussin Dm) 10 ml PRN Q6HRS PRN PO COUGH Last administered on at 09:40; Start 05/23/18 at 09:45 Furosemide (Lasix) 40 mg DAILY IVP ; Start 05/24/18 at 09:00; Stop 05/24/18 at 09:00; Status DC Lactobacillus Rhamnosus (Culturelle) 1 cap BID PO Last administered on 08:35; Start 05/23/18 at 21:00 Cetirizine HCl (ZyrTEC) 10 mg DAILY PO Last administered on 05/26/18 08:36; Start 05/23/18 at 12:30 Benzonatate (Tessalon Perle) 100 mg [id number] PO Last administered on 05/26/18 08 :35; Start 05/23/18 at 12:30 Guaifenesin (Robitussin) 200 mg QID PO Last administered on 05/26/18 08:35; Start 05/23/18 at 13:00 Ibuprofen (Motrin) 600 mg 1X ONCE PO Last administered on 05/23/18 12:30; Start 05/23/18 at 12:30; Stop 05/23/18 at 12:31; Status DC Ibuprofen (Motrin) 400 mg PRN Q6HRS PRN PO INFLAMMATION Last administered on 16:06; Start 05/23/18 at 12:00 Albuterol/ Ipratropium (Duoneb) 3 ml RTQID NEB Last administered on 05/26/18 08:49; Start 05/23/18 at 20:30 Budesonide (Pulmicort) 0.5 mg RTBID NEB Last administered on 05/26/18 08:49; Start 05/24/18 at 20:00 Oseltamivir Phosphate (Tamiflu) 75 mg BID PO Last administered on 05/26/18 08: 35; Start 05/24/18 at 21:00; Stop 05/28/18 at 09:01 Active Scripts Active Reported Protonix (Pantoprazole Sodium) 20 Mg Tablet.dr 40 Mg PO DAILY Ondansetron Odt (Ondansetron) 4 Mg Tab.rapdis 1 Tab PO PRN Q6-8HRS Furosemide 20 Mg Tablet 1 Tab PO DAILY Simvastatin 20 Mg Tablet 1 Tab PO QHS [place] 5-325 Tablet (Acetaminophen/Hydrocodone Bitart) 1 Each Tablet 1 Tab PO BID Carvedilol (Carvedilol) 6.25 Mg Tablet 6.25 Mg PO BID Dicyclomine Hcl 10 Mg Capsule 10 Mg PO DAILY Levothyroxine Sodium 100 Mcg Tablet 100 Mcg PO DAILYAC K-Tab ER (Potassium Chloride) 20 Meq Tablet.er 20 Meq PO DAILY Tramadol Hcl 50 Mg Tablet 50 Mg PO DAILY PRN Tramadol Hcl 50 Mg Tablet 50 Mg PO PRN Q4HRS PRN Vitals/I & O Vital Sign - Last 24 Hours 05/25/18 05/25/18 05/25/18 05/25/18 15:00 16:41 17:39 19:00 Temp 98.5 98.0 98.5 98.0 Pulse 92 92 86 Resp 20 20 B/P (MAP) 122/75 (91) 122/75 115/70 (85) Pulse Ox 93 92 O2 Delivery Room Air Room Air Nasal Cannula O2 Flow Rate 2.0 05/25/18 05/25/18 05/25/18 05/25/18 19:10 19:39 19:40 23:00 Temp 98.3 98.3 Pulse 74 Resp 18 B/P (MAP) 91/50 (64) Pulse Ox 96 96 92 O2 Delivery Room Air Room Air Room Air Room Air 05/26/18 05/26/18 05/26/18 05/26/18 03:00 07:00 08:00 08:36 Temp 97.7 98.1 97.7 98.1 Pulse 71 77 77 Resp 18 20 B/P (MAP) 136/84 (101) 129/66 (87) 129/66 Pulse Ox 93 93 O2 Delivery Room Air Room Air Room Air O2 Flow Rate 2.0 05/26/18 05/26/18 08:49 10:52 Temp 97.9 97.9 Pulse 79 Resp 20 B/P (MAP) 132/68 (89) Pulse Ox 92 95 O2 Delivery Room Air Room Air Intake and Output 05/25/18 05/25/18 05/26/18 15:01 23:01 07:01 Intake Total 600 ml 300 ml 500 ml Balance 600 ml 300 ml 500 ml JOSE NGUYEN III DO May 26, 2018 11:57
[2018-05-26] MEDS ORDERED: ACETAMINOPHEN 325 MG TABLET. PO PRN (12:00)
--- NOTE | 2018-05-26 12:24 | PDOC ---
PULMONARY PROGRESS NOTES Subjective less cough Vitals Vital Signs Date Time Temp Pulse Resp B/P (MAP) Pulse Ox O2 Delivery O2 Flow Rate FiO2 05/26/18 12:08 Nasal Cannula 2.0 05/26/18 10:52 97.9 79 20 132/68 (89) 95 97.9 General: Alert, No acute distress Lungs: Clear Cardiovascular: S1 Abdomen: Soft Neuro Exam: Alert Extremities: No Edema Skin: Warm Labs Laboratory Tests Test 05/25/18 04:10 05/25/18 04:30 05/25/18 16:20 05/26/18 06:20 White Blood Count 10.8 x10^3/uL (4.0-11.0) 9.8 x10^3/uL (4.0-11.0) Red Blood Count 4.38 x10^6/uL (3.50-5.40) 4.59 x10^6/uL (3.50-5.40) Hemoglobin 12.2 g/dL (12.0-15.5) 12.2 g/dL (12.0-15.5) Hematocrit 35.0 % (36.0-47.0) 36.9 % (36.0-47.0) Mean Corpuscular Volume 80 fL (79-100) 80 fL (79-100) Mean Corpuscular Hemoglobin 28 pg (25-35) 27 pg (25-35) Mean Corpuscular Hemoglobin Concent 35 g/dL (31-37) 33 g/dL (31-37) Red Cell Distribution Width 15.0 % (11.5-14.5) 15.1 % (11.5-14.5) Platelet Count 412 x10^3/uL (140-400) 425 x10^3/uL (140-400) Neutrophils (%) (Auto) 66 % (31-73) 64 % (31-73) Lymphocytes (%) (Auto) 23 % (24-48) 24 % (24-48) Monocytes (%) (Auto) 8 % (0-9) 8 % (0-9) Eosinophils (%) (Auto) 3 % (0-3) 3 % (0-3) Basophils (%) (Auto) 1 % (0-3) 1 % (0-3) Neutrophils # (Auto) 7.1 x10^3uL (1.8-7.7) 6.3 x10^3uL (1.8-7.7) Lymphocytes # (Auto) 2.4 x10^3/uL (1.0-4.8) 2.3 x10^3/uL (1.0-4.8) Monocytes # (Auto) 0.9 x10^3/uL (0.0-1.1) 0.8 x10^3/uL (0.0-1.1) Eosinophils # (Auto) 0.3 x10^3/uL (0.0-0.7) 0.3 x10^3/uL (0.0-0.7) Basophils # (Auto) 0.1 x10^3/uL (0.0-0.2) 0.1 x10^3/uL (0.0-0.2) Sodium Level 138 mmol/L (136-145) 140 mmol/L (136-145) Potassium Level 4.0 mmol/L (3.5-5.1) 4.2 mmol/L (3.5-5.1) Chloride Level 104 mmol/L (98-107) 105 mmol/L (98-107) Carbon Dioxide Level 25 mmol/L (21-32) 29 mmol/L (21-32) Anion Gap 9 (6-14) 6 (6-14) Blood Urea Nitrogen 10 mg/dL (7-20) 16 mg/dL (7-20) Creatinine 0.6 mg/dL (0.6-1.0) 0.6 mg/dL (0.6-1.0) Estimated GFR (Cockcroft-Gault) 97.7 97.7 Glucose Level 115 mg/dL (70-99) 117 mg/dL (70-99) Calcium Level 9.3 mg/dL (8.5-10.1) 8.7 mg/dL (8.5-10.1) Iron Level 35 ug/dL (50-170) Total Iron Binding Capacity 241 ug/dL (250-450) Iron Saturation 15 % (15-34) Stool Occult Blood Negative (NEG) Laboratory Tests Test 05/25/18 16:20 05/26/18 06:20 Stool Occult Blood Negative (NEG) White Blood Count 9.8 x10^3/uL (4.0-11.0) Red Blood Count 4.59 x10^6/uL (3.50-5.40) Hemoglobin 12.2 g/dL (12.0-15.5) Hematocrit 36.9 % (36.0-47.0) Mean Corpuscular Volume 80 fL (79-100) Mean Corpuscular Hemoglobin 27 pg (25-35) Mean Corpuscular Hemoglobin Concent 33 g/dL (31-37) Red Cell Distribution Width 15.1 % (11.5-14.5) Platelet Count 425 x10^3/uL (140-400) Neutrophils (%) (Auto) 64 % (31-73) Lymphocytes (%) (Auto) 24 % (24-48) Monocytes (%) (Auto) 8 % (0-9) Eosinophils (%) (Auto) 3 % (0-3) Basophils (%) (Auto) 1 % (0-3) Neutrophils # (Auto) 6.3 x10^3uL (1.8-7.7) Lymphocytes # (Auto) 2.3 x10^3/uL (1.0-4.8) Monocytes # (Auto) 0.8 x10^3/uL (0.0-1.1) Eosinophils # (Auto) 0.3 x10^3/uL (0.0-0.7) Basophils # (Auto) 0.1 x10^3/uL (0.0-0.2) Sodium Level 140 mmol/L (136-145) Potassium Level 4.2 mmol/L (3.5-5.1) Chloride Level 105 mmol/L (98-107) Carbon Dioxide Level 29 mmol/L (21-32) Anion Gap 6 (6-14) Blood Urea Nitrogen 16 mg/dL (7-20) Creatinine 0.6 mg/dL (0.6-1.0) Estimated GFR (Cockcroft-Gault) 97.7 Glucose Level 117 mg/dL (70-99) Calcium Level 8.7 mg/dL (8.5-10.1) Medications Active Scripts Medications Dose Route/Sig Max Daily Dose Days Date Category Protonix (Pantoprazole Sodium) 20 Mg Tablet.dr 40 Mg PO DAILY 05/22/18 Reported Ondansetron Odt (Ondansetron) 4 Mg Tab.rapdis 1 Tab PO PRN Q6-8HRS 05/22/18 Reported Furosemide 20 Mg Tablet 1 Tab PO DAILY 05/22/18 Reported Simvastatin 20 Mg Tablet 1 Tab PO QHS 05/22/18 Reported Clune 5-325 Tablet (Acetaminophen/Hydrocodone Bitart) 1 Each Tablet 1 Tab PO BID 05/22/18 Reported Carvedilol (Carvedilol) 6.25 Mg Tablet 6.25 Mg PO BID 10/13/13 Reported Dicyclomine Hcl 10 Mg Capsule 10 Mg PO DAILY 10/13/13 Reported Levothyroxine Sodium 100 Mcg Tablet 100 Mcg PO DAILYAC 10/13/13 Reported K-Tab ER (Potassium Chloride) 20 Meq Tablet.er 20 Meq PO DAILY 10/13/13 Reported Tramadol Hcl 50 Mg Tablet 50 Mg PO DAILY PRN 10/13/13 Reported Tramadol Hcl 50 Mg Tablet 50 Mg PO PRN Q4HRS PRN 10/13/13 Reported Impression . 1. Persistent cough for the last 5 days with flu-like symptoms. Suspect that she likely has a pneumonia; now improving slowly 2. No significant history of tobacco use. 3. Influenza screen negative. Plan . 1. Continue with present antibiotics. 2. Cough suppressant. 3. Nebs, / Pulmicort 4. CT chest reviewed. She has basal pneumonia. Not convinced that she has any sig fibrosis or ILD 5. repeat cxr 05/26 improving infiltrates ok with home in TANIA Coy MD May 26, 2018 12:24
--- NOTE | 2018-05-26 12:28 | PDOC ---
Subjective: Subjective: Indicates some chest discomfort, denies bleeding. Objective: Objective: Reviewed w/ RN - brown stool this morning. Not much appetite, chest pain w/ pneumonia. Vital Signs: Vital Signs Date Time Temp Pulse Resp B/P (MAP) Pulse Ox O2 Delivery O2 Flow Rate FiO2 05/26/18 12:08 Nasal Cannula 2.0 05/26/18 10:52 97.9 79 20 132/68 (89) 95 97.9 Labs: Laboratory Tests Test 05/25/18 16:20 05/26/18 06:20 Stool Occult Blood Negative White Blood Count 9.8 x10^3/uL Red Blood Count 4.59 x10^6/uL Hemoglobin 12.2 g/dL Hematocrit 36.9 % Mean Corpuscular Volume 80 fL Mean Corpuscular Hemoglobin 27 pg Mean Corpuscular Hemoglobin Concent 33 g/dL Red Cell Distribution Width 15.1 % Platelet Count 425 x10^3/uL Neutrophils (%) (Auto) 64 % Lymphocytes (%) (Auto) 24 % Monocytes (%) (Auto) 8 % Eosinophils (%) (Auto) 3 % Basophils (%) (Auto) 1 % Neutrophils # (Auto) 6.3 x10^3uL Lymphocytes # (Auto) 2.3 x10^3/uL Monocytes # (Auto) 0.8 x10^3/uL Eosinophils # (Auto) 0.3 x10^3/uL Basophils # (Auto) 0.1 x10^3/uL Sodium Level 140 mmol/L Potassium Level 4.2 mmol/L Chloride Level 105 mmol/L Carbon Dioxide Level 29 mmol/L Anion Gap 6 Blood Urea Nitrogen 16 mg/dL Creatinine 0.6 mg/dL Estimated GFR (Cockcroft-Gault) 97.7 Glucose Level 117 mg/dL Calcium Level 8.7 mg/dL Imaging: CXR Impression: 1. Slightly improved congestive changes. 2. Improving left lower lobe subsegmental atelectasis and/or infiltrate. PE: GEN: resp therapy present LUNGS: breathing treatment ABD: soft, non-tender NEURO/PSYCH: A & O �3 A/P: Dark stools - resolved, Hgb and BUN WNL, fecal occult neg, on chronic PPI Pneumonia -- Continue same per GI. JOCE PAUL May 26, 2018 12:28
[2018-05-26 15:00] VITALS: BP 135/64
[2018-05-26 18:45] VITALS: BP 98/53
--- NOTE | 2018-05-26 19:36 | CONS ---
DATE OF CONSULTATION: 05/26/2018 REASON FOR CONSULT: Questionable post-menopausal bleeding. HISTORY OF PRESENT ILLNESS: This is a 72-year-old female who is hard to communicate secondary to the language barrier but via her nurse, there was no evidence of postmenopausal bleeding. I reviewed the ultrasound report and ultrasound images with endometrial striping 2 mm, anything less than 6 mm is considered normal, in postmenopausal bleeding, anything definitely less than 4 mm with spotting would still be considered normal; however, the bleeding (consisting) of hysteroscopic evaluation of endometrial cavity along with a biopsy would be prudent. I feel, at this time, no further assessment needs to be done on an inpatient basis while the patient is recovering from her pulmonary disorder. As above, if this continues, hysteroscopic evaluation of endometrial cavity would be the next step, is to have a blind endometrial biopsy. If any questions about this patient or any other patient, feel free to contact me. Thank you for allowing me to participate in the care of this patient. ANGEL JORGENSEN MD DR: CORETTA/nts JOB#: [id number] / [id number]
[2018-05-26] MEDS: OSELTAMIVIR 30 MG CAPSULE PO SCH (20:10)
[2018-05-26] MEDS: SIMVASTATIN 40 MG TABLET. PO SCH (20:11)
[2018-05-26 23:00] VITALS: BP 118/71
[2018-05-27 03:00] VITALS: BP 127/73
[2018-05-27 04:47] LABS: CALCIUM 9.1 mg/dL (8.5-10.1); CREATININE 0.6 mg/dL (0.6-1.0); GFR 97.7; POTASSIUM 4.1 mmol/L (3.5-5.1)
[2018-05-27 04:59] LABS: BASO # 0.1 x10^3/uL (0.0-0.2); BASO % 1 % (0-3); EOS # 0.4 x10^3/uL (0.0-0.7); EOS % 3 % (0-3); HEMATOCRIT 35.2 % (36.0-47.0); HEMOGLOBIN 11.8 g/dL (12.0-15.5); LYMPH # 2.8 x10^3/uL (1.0-4.8); LYMPH % 25 % (24-48); MEAN CORPUSCULAR HEMOGLOBIN 27 pg (25-35); MEAN CORPUSCULAR HGB CONC 34 g/dL (31-37); MEAN CORPUSCULAR VOLUME 80 fL (79-100); MONO % 9 % (0-9); NEUT # 6.9 x10^3uL (1.8-7.7); NEUT % 62 % (31-73); PLATELET COUNT 458 x10^3/uL (140-400); RED BLOOD COUNT 4.39 x10^6/uL (3.50-5.40); WHITE BLOOD COUNT 11.1 x10^3/uL (4.0-11.0)
[2018-05-27] MEDS: LEVOTHYROXINE 100 MCG TABLET PO SCH (05:35)
[2018-05-27] MEDS: PANTOPRAZOLE 40 MG TABLET.DR. PO SCH (05:35)
[2018-05-27] MEDS: AZITHROMYCIN 500 MG in IV NORMAL SALINE 250ML 250 ML IV SCH (05:36)
[2018-05-27 06:36] VITALS: BP 166/66
[2018-05-27] MEDS: IPRATRPIUM/ALBUTEROL 0.5/2.5MG 3 ML NEBU. NEB SCH ×2 (07:31→11:28)
[2018-05-27] MEDS: BUDESONIDE 0.5 MG/2 ML NEBU. NEB SCH (07:31)
[2018-05-27] MEDS: DICYCLOMINE HCL 10 MG CAPSULE PO SCH (07:53)
[2018-05-27] MEDS: POTASSIUM CHLORIDE 20 MEQ TABLET.ER. PO SCH (07:53)
[2018-05-27] MEDS: guaiFENesin ORAL 200 MG/10 ML LIQUID. PO SCH (07:54)
[2018-05-27] MEDS: LACTOBACILLUS RHAMNOSUS GG 1 CAPSULE. PO SCH (07:54)
[2018-05-27] MEDS: CETIRIZINE HCL 10 MG TABLET. PO SCH (07:54)
[2018-05-27] MEDS: OSELTAMIVIR 30 MG CAPSULE PO SCH (07:54)
[2018-05-27] MEDS: CARVEDILOL 6.25 MG TABLET. PO SCH (07:55)
[2018-05-27] MEDS: SENNOSIDES/DOCUSATE 8.6/50MG TABLET. PO SCH (07:55)
[2018-05-27] MEDS: cefTRIAXone IV Push 1 GM VIAL. IVP SCH (07:55)
[2018-05-27] MEDS: ASPIRIN ENTERIC COATED 325 MG TABLET.DR. PO SCH (07:55)
[2018-05-27] MEDS: BENZONATATE 100 MG CAPSULE. PO SCH (07:58)
--- NOTE | 2018-05-27 08:45 | PDOC ---
PULMONARY PROGRESS NOTES Subjective less cough Vitals Vital Signs Date Time Temp Pulse Resp B/P (MAP) Pulse Ox O2 Delivery O2 Flow Rate FiO2 05/27/18 07:55 83 166/66 05/27/18 07:32 96 Room Air 05/27/18 06:36 97.8 18 2.0 97.8 General: Alert, No acute distress Lungs: Clear Cardiovascular: S1 Abdomen: Soft Neuro Exam: Alert Extremities: No Edema Skin: Warm Labs Laboratory Tests Test 05/25/18 16:20 05/26/18 06:20 05/27/18 03:20 Stool Occult Blood Negative (NEG) White Blood Count 9.8 x10^3/uL (4.0-11.0) 11.1 x10^3/uL (4.0-11.0) Red Blood Count 4.59 x10^6/uL (3.50-5.40) 4.39 x10^6/uL (3.50-5.40) Hemoglobin 12.2 g/dL (12.0-15.5) 11.8 g/dL (12.0-15.5) Hematocrit 36.9 % (36.0-47.0) 35.2 % (36.0-47.0) Mean Corpuscular Volume 80 fL (79-100) 80 fL (79-100) Mean Corpuscular Hemoglobin 27 pg (25-35) 27 pg (25-35) Mean Corpuscular Hemoglobin Concent 33 g/dL (31-37) 34 g/dL (31-37) Red Cell Distribution Width 15.1 % (11.5-14.5) 15.0 % (11.5-14.5) Platelet Count 425 x10^3/uL (140-400) 458 x10^3/uL (140-400) Neutrophils (%) (Auto) 64 % (31-73) 62 % (31-73) Lymphocytes (%) (Auto) 24 % (24-48) 25 % (24-48) Monocytes (%) (Auto) 8 % (0-9) 9 % (0-9) Eosinophils (%) (Auto) 3 % (0-3) 3 % (0-3) Basophils (%) (Auto) 1 % (0-3) 1 % (0-3) Neutrophils # (Auto) 6.3 x10^3uL (1.8-7.7) 6.9 x10^3uL (1.8-7.7) Lymphocytes # (Auto) 2.3 x10^3/uL (1.0-4.8) 2.8 x10^3/uL (1.0-4.8) Monocytes # (Auto) 0.8 x10^3/uL (0.0-1.1) 1.0 x10^3/uL (0.0-1.1) Eosinophils # (Auto) 0.3 x10^3/uL (0.0-0.7) 0.4 x10^3/uL (0.0-0.7) Basophils # (Auto) 0.1 x10^3/uL (0.0-0.2) 0.1 x10^3/uL (0.0-0.2) Sodium Level 140 mmol/L (136-145) 138 mmol/L (136-145) Potassium Level 4.2 mmol/L (3.5-5.1) 4.1 mmol/L (3.5-5.1) Chloride Level 105 mmol/L (98-107) 102 mmol/L (98-107) Carbon Dioxide Level 29 mmol/L (21-32) 29 mmol/L (21-32) Anion Gap 6 (6-14) 7 (6-14) Blood Urea Nitrogen 16 mg/dL (7-20) 21 mg/dL (7-20) Creatinine 0.6 mg/dL (0.6-1.0) 0.6 mg/dL (0.6-1.0) Estimated GFR (Cockcroft-Gault) 97.7 97.7 Glucose Level 117 mg/dL (70-99) 118 mg/dL (70-99) Calcium Level 8.7 mg/dL (8.5-10.1) 9.1 mg/dL (8.5-10.1) Laboratory Tests Test 05/27/18 03:20 White Blood Count 11.1 x10^3/uL (4.0-11.0) Red Blood Count 4.39 x10^6/uL (3.50-5.40) Hemoglobin 11.8 g/dL (12.0-15.5) Hematocrit 35.2 % (36.0-47.0) Mean Corpuscular Volume 80 fL (79-100) Mean Corpuscular Hemoglobin 27 pg (25-35) Mean Corpuscular Hemoglobin Concent 34 g/dL (31-37) Red Cell Distribution Width 15.0 % (11.5-14.5) Platelet Count 458 x10^3/uL (140-400) Neutrophils (%) (Auto) 62 % (31-73) Lymphocytes (%) (Auto) 25 % (24-48) Monocytes (%) (Auto) 9 % (0-9) Eosinophils (%) (Auto) 3 % (0-3) Basophils (%) (Auto) 1 % (0-3) Neutrophils # (Auto) 6.9 x10^3uL (1.8-7.7) Lymphocytes # (Auto) 2.8 x10^3/uL (1.0-4.8) Monocytes # (Auto) 1.0 x10^3/uL (0.0-1.1) Eosinophils # (Auto) 0.4 x10^3/uL (0.0-0.7) Basophils # (Auto) 0.1 x10^3/uL (0.0-0.2) Sodium Level 138 mmol/L (136-145) Potassium Level 4.1 mmol/L (3.5-5.1) Chloride Level 102 mmol/L (98-107) Carbon Dioxide Level 29 mmol/L (21-32) Anion Gap 7 (6-14) Blood Urea Nitrogen 21 mg/dL (7-20) Creatinine 0.6 mg/dL (0.6-1.0) Estimated GFR (Cockcroft-Gault) 97.7 Glucose Level 118 mg/dL (70-99) Calcium Level 9.1 mg/dL (8.5-10.1) Medications Active Scripts Medications Dose Route/Sig Max Daily Dose Days Date Category Protonix (Pantoprazole Sodium) 20 Mg Tablet.dr 40 Mg PO DAILY 05/22/18 Reported Ondansetron Odt (Ondansetron) 4 Mg Tab.rapdis 1 Tab PO PRN Q6-8HRS 05/22/18 Reported Furosemide 20 Mg Tablet 1 Tab PO DAILY 05/22/18 Reported Simvastatin 20 Mg Tablet 1 Tab PO QHS 05/22/18 Reported Vandervoort 5-325 Tablet (Acetaminophen/Hydrocodone Bitart) 1 Each Tablet 1 Tab PO BID 05/22/18 Reported Carvedilol (Carvedilol) 6.25 Mg Tablet 6.25 Mg PO BID 10/13/13 Reported Dicyclomine Hcl 10 Mg Capsule 10 Mg PO DAILY 10/13/13 Reported Levothyroxine Sodium 100 Mcg Tablet 100 Mcg PO DAILYAC 10/13/13 Reported K-Tab ER (Potassium Chloride) 20 Meq Tablet.er 20 Meq PO DAILY 10/13/13 Reported Tramadol Hcl 50 Mg Tablet 50 Mg PO DAILY PRN 10/13/13 Reported Tramadol Hcl 50 Mg Tablet 50 Mg PO PRN Q4HRS PRN 10/13/13 Reported Impression . 1. Persistent cough for the last 5 days with flu-like symptoms. Suspect that she likely has a pneumonia; now improving slowly 2. No significant history of tobacco use. 3. Influenza screen negative. Plan . 1. Continue with present antibiotics. 2. Cough suppressant. 3. Nebs, / Pulmicort 4. CT chest reviewed. She has basal pneumonia. Not convinced that she has any sig fibrosis or ILD 5. repeat cxr 05/26 improving infiltrates ok with home in am DEANA PEPE MD May 27, 2018 08:45
[2018-05-27 10:50] VITALS: BP 107/70
[2018-05-27] MEDS: traMADol 50 MG TABLET PO PRN (11:18)
--- NOTE | 2018-05-27 11:48 | PDOC ---
PROGRESS NOTES Chief Complaint Chief Complaint CC: CAP History of Present Illness History of Present Illness Patient seen and examined. She is a pleasant 72 y/o Latvian speaking female. She is okay with discharge today. She has some complaints of chronic arthritis that is bothering her. Vitals Vitals Vital Signs Date Time Temp Pulse Resp B/P (MAP) Pulse Ox O2 Delivery O2 Flow Rate FiO2 05/27/18 11:30 93 Room Air 05/27/18 10:50 97.8 73 18 107/70 (82) 97.8 05/27/18 06:36 2.0 Physical Exam General: Alert, Oriented X3, Cooperative, No acute distress Heart: Regular rate, Normal S1, Normal S2, No murmurs, Other (tachy, sinus) Lungs: Clear Abdomen: Normal bowel sounds, Soft, No tenderness, No hepatosplenomegaly, No masses Extremities: No clubbing, No cyanosis, No edema, Normal pulses, No tenderness/ swelling Skin: No rashes, No breakdown, No significant lesion Labs LABS Laboratory Tests Test 05/27/18 03:20 White Blood Count 11.1 x10^3/uL (4.0-11.0) Red Blood Count 4.39 x10^6/uL (3.50-5.40) Hemoglobin 11.8 g/dL (12.0-15.5) Hematocrit 35.2 % (36.0-47.0) Mean Corpuscular Volume 80 fL (79-100) Mean Corpuscular Hemoglobin 27 pg (25-35) Mean Corpuscular Hemoglobin Concent 34 g/dL (31-37) Red Cell Distribution Width 15.0 % (11.5-14.5) Platelet Count 458 x10^3/uL (140-400) Neutrophils (%) (Auto) 62 % (31-73) Lymphocytes (%) (Auto) 25 % (24-48) Monocytes (%) (Auto) 9 % (0-9) Eosinophils (%) (Auto) 3 % (0-3) Basophils (%) (Auto) 1 % (0-3) Neutrophils # (Auto) 6.9 x10^3uL (1.8-7.7) Lymphocytes # (Auto) 2.8 x10^3/uL (1.0-4.8) Monocytes # (Auto) 1.0 x10^3/uL (0.0-1.1) Eosinophils # (Auto) 0.4 x10^3/uL (0.0-0.7) Basophils # (Auto) 0.1 x10^3/uL (0.0-0.2) Sodium Level 138 mmol/L (136-145) Potassium Level 4.1 mmol/L (3.5-5.1) Chloride Level 102 mmol/L (98-107) Carbon Dioxide Level 29 mmol/L (21-32) Anion Gap 7 (6-14) Blood Urea Nitrogen 21 mg/dL (7-20) Creatinine 0.6 mg/dL (0.6-1.0) Estimated GFR (Cockcroft-Gault) 97.7 Glucose Level 118 mg/dL (70-99) Calcium Level 9.1 mg/dL (8.5-10.1) Review of Systems Review of Systems Heart: denies chest pain Lungs: denies soa Integument: mukul corona Assessment and Plan Assessmemt and Plan Assessmemt and Plan Assessment: 1. Pneumonia 2. Sepsis 3. Hypoxia 4. HTN 5. HLD 6. Hyperglycemia Plan: 1. continue antibiotics, home with augmentin and azithromycin 2. Albuterol inhaler for home 3. Motrin for arthritis 4. Home meds 5. PT/OT 6. Tylenol 650 Q6 7. Appreciate subspecialty input Comment Review of Relevant I have reviewed the following items ca (where applicable) has been applied. Labs Laboratory Tests Test 05/25/18 16:20 05/26/18 06:20 05/27/18 03:20 Stool Occult Blood Negative (NEG) White Blood Count 9.8 x10^3/uL (4.0-11.0) 11.1 x10^3/uL (4.0-11.0) Red Blood Count 4.59 x10^6/uL (3.50-5.40) 4.39 x10^6/uL (3.50-5.40) Hemoglobin 12.2 g/dL (12.0-15.5) 11.8 g/dL (12.0-15.5) Hematocrit 36.9 % (36.0-47.0) 35.2 % (36.0-47.0) Mean Corpuscular Volume 80 fL (79-100) 80 fL (79-100) Mean Corpuscular Hemoglobin 27 pg (25-35) 27 pg (25-35) Mean Corpuscular Hemoglobin Concent 33 g/dL (31-37) 34 g/dL (31-37) Red Cell Distribution Width 15.1 % (11.5-14.5) 15.0 % (11.5-14.5) Platelet Count 425 x10^3/uL (140-400) 458 x10^3/uL (140-400) Neutrophils (%) (Auto) 64 % (31-73) 62 % (31-73) Lymphocytes (%) (Auto) 24 % (24-48) 25 % (24-48) Monocytes (%) (Auto) 8 % (0-9) 9 % (0-9) Eosinophils (%) (Auto) 3 % (0-3) 3 % (0-3) Basophils (%) (Auto) 1 % (0-3) 1 % (0-3) Neutrophils # (Auto) 6.3 x10^3uL (1.8-7.7) 6.9 x10^3uL (1.8-7.7) Lymphocytes # (Auto) 2.3 x10^3/uL (1.0-4.8) 2.8 x10^3/uL (1.0-4.8) Monocytes # (Auto) 0.8 x10^3/uL (0.0-1.1) 1.0 x10^3/uL (0.0-1.1) Eosinophils # (Auto) 0.3 x10^3/uL (0.0-0.7) 0.4 x10^3/uL (0.0-0.7) Basophils # (Auto) 0.1 x10^3/uL (0.0-0.2) 0.1 x10^3/uL (0.0-0.2) Sodium Level 140 mmol/L (136-145) 138 mmol/L (136-145) Potassium Level 4.2 mmol/L (3.5-5.1) 4.1 mmol/L (3.5-5.1) Chloride Level 105 mmol/L (98-107) 102 mmol/L (98-107) Carbon Dioxide Level 29 mmol/L (21-32) 29 mmol/L (21-32) Anion Gap 6 (6-14) 7 (6-14) Blood Urea Nitrogen 16 mg/dL (7-20) 21 mg/dL (7-20) Creatinine 0.6 mg/dL (0.6-1.0) 0.6 mg/dL (0.6-1.0) Estimated GFR (Cockcroft-Gault) 97.7 97.7 Glucose Level 117 mg/dL (70-99) 118 mg/dL (70-99) Calcium Level 8.7 mg/dL (8.5-10.1) 9.1 mg/dL (8.5-10.1) Laboratory Tests Test 05/27/18 03:20 White Blood Count 11.1 x10^3/uL (4.0-11.0) Red Blood Count 4.39 x10^6/uL (3.50-5.40) Hemoglobin 11.8 g/dL (12.0-15.5) Hematocrit 35.2 % (36.0-47.0) Mean Corpuscular Volume 80 fL (79-100) Mean Corpuscular Hemoglobin 27 pg (25-35) Mean Corpuscular Hemoglobin Concent 34 g/dL (31-37) Red Cell Distribution Width 15.0 % (11.5-14.5) Platelet Count 458 x10^3/uL (140-400) Neutrophils (%) (Auto) 62 % (31-73) Lymphocytes (%) (Auto) 25 % (24-48) Monocytes (%) (Auto) 9 % (0-9) Eosinophils (%) (Auto) 3 % (0-3) Basophils (%) (Auto) 1 % (0-3) Neutrophils # (Auto) 6.9 x10^3uL (1.8-7.7) Lymphocytes # (Auto) 2.8 x10^3/uL (1.0-4.8) Monocytes # (Auto) 1.0 x10^3/uL (0.0-1.1) Eosinophils # (Auto) 0.4 x10^3/uL (0.0-0.7) Basophils # (Auto) 0.1 x10^3/uL (0.0-0.2) Sodium Level 138 mmol/L (136-145) Potassium Level 4.1 mmol/L (3.5-5.1) Chloride Level 102 mmol/L (98-107) Carbon Dioxide Level 29 mmol/L (21-32) Anion Gap 7 (6-14) Blood Urea Nitrogen 21 mg/dL (7-20) Creatinine 0.6 mg/dL (0.6-1.0) Estimated GFR (Cockcroft-Gault) 97.7 Glucose Level 118 mg/dL (70-99) Calcium Level 9.1 mg/dL (8.5-10.1) Microbiology 05/22/18 Blood Culture - Preliminary, Resulted NO GROWTH AFTER 4 DAYS Medications Current Medications Albuterol/ Ipratropium (Duoneb) 3 ml 1X ONCE NEB Last administered on at 13:05; Start 05/22/18 at 13:00; Stop 05/22/18 at 13:01; Status DC Acetaminophen (Tylenol) 1,000 mg 1X ONCE PO Last administered on 05/22/18at 13: 30; Start 05/22/18 at 13:00; Stop 05/22/18 at 13:01; Status DC Azithromycin 250 ml @ 250 mls/hr 1X ONCE IV Last administered on 05/22/18at 14 :30; Start 05/22/18 at 14:00; Stop 05/22/18 at 14:59; Status DC Ceftriaxone Sodium (Rocephin) 1 gm 1X ONCE IVP Last administered on 05/22/18at 14:29; Start 05/22/18 at 14:00; Stop 05/22/18 at 14:01; Status DC Ondansetron HCl (Zofran) 4 mg PRN Q8HRS PRN IV NAUSEA/VOMITING; Start 05/22/18 at 15:00; Stop 05/23/18 at 12:17; Status DC Sodium Chloride 1,000 ml @ 100 mls/hr Q10H IV Last administered on 05/24/18at 08:48; Start 05/22/18 at 14:51; Stop 05/23/18 at 14:50; Status DC Acetaminophen (Tylenol) 650 mg PRN Q4HRS PRN PO FEVER; Start 05/22/18 at 15:00 ; Stop 05/22/18 at 17:32; Status DC Albuterol/ Ipratropium (Duoneb) 3 ml RTQID NEB Last administered on 05/23/18at 14:39; Start 05/22/18 at 16:00; Stop 05/23/18 at 15:59; Status DC Sodium Chloride 1,000 ml @ 1,000 mls/hr 1X ONCE IV Last administered on at 15:22; Start 05/22/18 at 15:00; Stop 05/22/18 at 15:59; Status DC Aspirin (Ecotrin) 325 mg DAILY PO Last administered on 05/27/18 07:55; Start 05/23/18 at 09:00 Carvedilol (Coreg) 6.25 mg BIDWMEALS PO Last administered on 05/27/18 07:55; Start 05/22/18 at 17:30 Dicyclomine HCl (Bentyl) 10 mg DAILY PO Last administered on 05/27/18 07:53; Start 05/23/18 at 09:00 Levothyroxine Sodium (Synthroid) 100 mcg DAILY06 PO Last administered on 05:35; Start 05/23/18 at 06:00 Tramadol HCl (Ultram) 50 mg PRN DAILY PRN PO MILD TO MODERATE PAIN Last administered on 05/27/18 11:18; Start 05/22/18 at 17:15 Pantoprazole Sodium (Protonix) 40 mg DAILYAC PO Last administered on 05/27/18 05:35; Start 05/23/18 at 07:30 Potassium Chloride (Klor-Con) 20 meq DAILYWBKFT PO Last administered on at 09:19; Start 05/23/18 at 08:00; Stop 05/23/18 at 09:44; Status DC Simvastatin (Zocor) 40 mg QHS PO Last administered on 05/26/18at 20:11; Start at 21:00 Ondansetron HCl (Zofran) 4 mg PRN Q6HRS PRN IV NAUSEA/VOMITING; Start 05/22/18 at 17:15 Morphine Sulfate (Morphine Sulfate) 1 mg PRN Q1HR PRN IV PAIN; Start 05/22/18 at 17:15 Acetaminophen (Tylenol) 650 mg PRN Q6HRS PRN PO Headaches, Temp > 101.5F Last administered on 05/26/18at 08:50; Start 05/22/18 at 17:15 Senna/Docusate Sodium (Senna Plus) 1 tab BID PO Last administered on 05/27/18at 07:55; Start 05/22/18 at 21:00 Magnesium Hydroxide (Milk Of Magnesia) 2,400 mg PRN Q12HR PRN PO CONSTIPATION; Start 05/22/18 at 17:15 Bisacodyl (Dulcolax Supp) 10 mg PRN DAILY PRN CO CONSTIPATION; Start 05/22/18 at 17:15 Heparin Sodium (Porcine) (Heparin Sodium) 5,000 unit Q8HRS SQ Last administered on 05/23/18at 06:17; Start 05/22/18 at 17:00; Stop 05/23/18 at 09:44 ; Status DC Furosemide (Lasix) 40 mg [id number] IVP Last administered on 05/23/18at 09:00; Start 05/22/18 at 17:15; Stop 05/23/18 at 09:45; Status DC Insulin Human Lispro (HumaLOG) 0-5 UNITS TIDWMEALS SQ Last administered on 05/23at 09:36; Start 05/23/18 at 08:00; Stop 05/23/18 at 09:44; Status DC Dextrose (Dextrose 50%-Water Syringe) 12.5 gm PRN Q15MIN PRN IV SEE COMMENTS; Start 05/22/18 at 17:30 Oseltamivir Phosphate (Tamiflu) 30 mg BID PO Last administered on 05/23/18at 09: 19; Start 05/22/18 at 18:00; Stop 05/23/18 at 09:44; Status DC Azithromycin 500 mg/Sodium Chloride 250 ml @ 250 mls/hr Q24H IV Last administered on 05/27/18at 05:36; Start 05/23/18 at 07:00 Ceftriaxone Sodium (Rocephin) 1 gm Q24H IVP Last administered on 05/27/18at 07: 55; Start 05/23/18 at 08:00 Influenza Virus Vaccine (Afluria Trivalent [id number] Syringe) 0.5 ml ONCE ONCE VAX IM ; Start 05/23/18 at 09:00; Stop 05/23/18 at 09:01; Status DC Potassium Chloride (Klor-Con) 40 meq DAILYWBKFT PO Last administered on 07:53; Start 05/23/18 at 09:45 Guaifenesin (Robitussin Dm) 10 ml PRN Q6HRS PRN PO COUGH Last administered on 09:40; Start 05/23/18 at 09:45 Furosemide (Lasix) 40 mg DAILY IVP ; Start 05/24/18 at 09:00; Stop 05/24/18 at 09:00; Status DC Lactobacillus Rhamnosus (Culturelle) 1 cap BID PO Last administered on 07:54; Start 05/23/18 at 21:00 Cetirizine HCl (ZyrTEC) 10 mg DAILY PO Last administered on 05/27/18 07:54; Start 05/23/18 at 12:30 Benzonatate (Tessalon Perle) 100 mg [id number] PO Last administered on 05/27/18 07 :58; Start 05/23/18 at 12:30 Guaifenesin (Robitussin) 200 mg QID PO Last administered on 05/27/18 07:54; Start 05/23/18 at 13:00 Ibuprofen (Motrin) 600 mg 1X ONCE PO Last administered on 05/23/18 12:30; Start 05/23/18 at 12:30; Stop 05/23/18 at 12:31; Status DC Ibuprofen (Motrin) 400 mg PRN Q6HRS PRN PO INFLAMMATION Last administered on 16:06; Start 05/23/18 at 12:00 Albuterol/ Ipratropium (Duoneb) 3 ml RTQID NEB Last administered on 05/27/18 11:28; Start 05/23/18 at 20:30 Budesonide (Pulmicort) 0.5 mg RTBID NEB Last administered on 05/27/18 07:31; Start 05/24/18 at 20:00 Oseltamivir Phosphate (Tamiflu) 75 mg BID PO Last administered on 05/26/18 08: 35; Start 05/24/18 at 21:00; Stop 05/26/18 at 16:23; Status DC Acetaminophen (Tylenol) 650 mg PRN Q6HRS PRN PO MIGRAINE HEADACHE Last administered on 05/27/18 07:52; Start 05/26/18 at 12:00 Oseltamivir Phosphate (Tamiflu) 30 mg BID PO Last administered on 05/27/18at 07: 54; Start 05/26/18 at 21:00; Stop 05/28/18 at 09:01 Active Scripts Active Reported Protonix (Pantoprazole Sodium) 20 Mg Tablet.dr 40 Mg PO DAILY Ondansetron Odt (Ondansetron) 4 Mg Tab.rapdis 1 Tab PO PRN Q6-8HRS Furosemide 20 Mg Tablet 1 Tab PO DAILY Simvastatin 20 Mg Tablet 1 Tab PO QHS [place] 5-325 Tablet (Acetaminophen/Hydrocodone Bitart) 1 Each Tablet 1 Tab PO BID Carvedilol (Carvedilol) 6.25 Mg Tablet 6.25 Mg PO BID Dicyclomine Hcl 10 Mg Capsule 10 Mg PO DAILY Levothyroxine Sodium 100 Mcg Tablet 100 Mcg PO DAILYAC K-Tab ER (Potassium Chloride) 20 Meq Tablet.er 20 Meq PO DAILY Tramadol Hcl 50 Mg Tablet 50 Mg PO DAILY PRN Tramadol Hcl 50 Mg Tablet 50 Mg PO PRN Q4HRS PRN Vitals/I & O Vital Sign - Last 24 Hours 05/26/18 05/26/18 05/26/18 05/26/18 12:08 15:00 16:05 17:00 Temp 97.9 97.9 Pulse 74 78 Resp 20 B/P (MAP) 135/64 (87) 98/53 Pulse Ox 95 94 O2 Delivery Nasal Cannula Nasal Cannula Room Air O2 Flow Rate 2.0 2.0 05/26/18 05/26/18 05/26/18 05/26/18 18:45 19:21 20:24 23:00 Temp 98.0 98.8 98.0 98.8 Pulse 78 88 Resp 18 20 B/P (MAP) 98/53 (68) 118/71 (87) Pulse Ox 98 94 92 O2 Delivery Nasal Cannula Room Air Room Air Nasal Cannula O2 Flow Rate 2.0 2.0 05/27/18 05/27/18 05/27/18 05/27/18 03:00 06:36 07:32 07:55 Temp 98.9 97.8 98.9 97.8 Pulse 80 83 83 Resp 18 18 B/P (MAP) 127/73 (91) 166/66 (99) 166/66 Pulse Ox 90 92 96 O2 Delivery Room Air Room Air Room Air O2 Flow Rate 2.0 05/27/18 05/27/18 05/27/18 05/27/18 08:00 10:50 11:18 11:30 Temp 97.8 97.8 Pulse 73 Resp 18 B/P (MAP) 107/70 (82) Pulse Ox 96 93 O2 Delivery Room Air Room Air Room Air Room Air Intake and Output 05/26/18 05/26/18 05/27/18 15:01 23:01 07:01 Intake Total 600 ml 300 ml 550 ml Output Total 2 ml 3 ml Balance 600 ml 298 ml 547 ml JOSE NGUYEN III DO May 27, 2018 11:48
--- NOTE | 2018-05-27 11:54 | PDOC ---
Subjective: Subjective: Indicates headaches, cough, and wheezing. Objective: Objective: Per RN - no bleeding, plans to discharge today. Vital Signs: Vital Signs Date Time Temp Pulse Resp B/P (MAP) Pulse Ox O2 Delivery O2 Flow Rate FiO2 05/27/18 11:30 93 Room Air 05/27/18 10:50 97.8 73 18 107/70 (82) 97.8 05/27/18 06:36 2.0 Labs: Laboratory Tests Test 05/27/18 03:20 White Blood Count 11.1 x10^3/uL Red Blood Count 4.39 x10^6/uL Hemoglobin 11.8 g/dL Hematocrit 35.2 % Mean Corpuscular Volume 80 fL Mean Corpuscular Hemoglobin 27 pg Mean Corpuscular Hemoglobin Concent 34 g/dL Red Cell Distribution Width 15.0 % Platelet Count 458 x10^3/uL Neutrophils (%) (Auto) 62 % Lymphocytes (%) (Auto) 25 % Monocytes (%) (Auto) 9 % Eosinophils (%) (Auto) 3 % Basophils (%) (Auto) 1 % Neutrophils # (Auto) 6.9 x10^3uL Lymphocytes # (Auto) 2.8 x10^3/uL Monocytes # (Auto) 1.0 x10^3/uL Eosinophils # (Auto) 0.4 x10^3/uL Basophils # (Auto) 0.1 x10^3/uL Sodium Level 138 mmol/L Potassium Level 4.1 mmol/L Chloride Level 102 mmol/L Carbon Dioxide Level 29 mmol/L Anion Gap 7 Blood Urea Nitrogen 21 mg/dL Creatinine 0.6 mg/dL Estimated GFR (Cockcroft-Gault) 97.7 Glucose Level 118 mg/dL Calcium Level 9.1 mg/dL PE: GEN: NAD LUNGS: exp wheezing HEART: RRR ABD: S/ND/NT NEURO/PSYCH: A & O �3 A/P: Dark stools - no recurrence, fecal occult neg ACD Pneumonia -- DC per primary/pulm, continue PPI, follow-up for outpt 'scopes. JOCE PAUL May 27, 2018 11:54
--- NOTE | 2018-05-27 15:43 | NUR ---
Patient discharged to home self care, patient insisted this RN talked to her daughter, Shama regarding new prescriptions and discharge instructions. This RN talked to Shama on the phone with patient present. Patient asked questions to the daughter who translated for this RN. Patient understands with assistance of daughter regarding new prescriptions for antibiotics and breathing treatments.
--- NOTE | 2018-06-18 12:23 | DS ---
DATE OF DISCHARGE: 05/27/2018 ADMISSION DIAGNOSIS: Pneumonia. DISCHARGE DIAGNOSIS: Resolving pneumonia. HOSPITAL COURSE: The patient is a pleasant 72-year-old female who presented with pneumonia. She was admitted. We gave her breathing treatments, oxygen, IV antibiotics, physical therapy and occupational therapy. She did better. We discharged to home on a Z-DANIELA and Augmentin and metered dose inhaler of Combivent. DISPOSITION: Home. ACTIVITY: As tolerated. DIET: Low sodium. MEDICATIONS: Please see the MRAD. TOTAL TIME: 33 minutes. JOSE NGUYEN DO DR: REJI/jostin JOB#: [id number] / [id number]
== END 2018-05-27 15:50 | disposition home or self-care (01) | DRG 871 ==
LOC: ER 11:51 → 5 NORTH 14:48
PROVIDERS: ADMIT Internal Medicine; ATTEND Internal Medicine
DX: A41.9 Sepsis, unspecified organism (principal); J18.9 Pneumonia, unspecified organism; I42.9 Cardiomyopathy, unspecified; I11.0 Hypertensive heart disease with heart failure; I50.9 Heart failure, unspecified; E87.6 Hypokalemia; E03.9 Hypothyroidism, unspecified; E78.00 Pure hypercholesterolemia, unspecified; I25.10 Atherosclerotic heart disease of native coronary artery without angina pectoris; M19.90 Unspecified osteoarthritis, unspecified site; E78.5 Hyperlipidemia, unspecified; N95.0 Postmenopausal bleeding; R09.02 Hypoxemia; Z79.899 Other long term (current) drug therapy; Z82.49 Family history of ischemic heart disease and other diseases of the circulatory system
CPT/HCPCS: 36415; 71045; 71046; 71250; 76830; 76856; 80048; 80053; 81001; 82274; 82962; 83540; 83550; 83605; 83690; 83880; 84484; 85007; 85025; 85610; 85730; 87040; 87804; 93005; 93306; 94640; 94760; 96365; 96375; J0456; J0696; J1644; J1815; J1940; J7030; J7050; J7620; J7626; 97110; 97535; 99285-25; G0378

== ENCOUNTER → 2018-06-18 | Day surgery (SDC) | payer MEDICARE ==
[~2018-06-18] MED LIST changes: +FURO20TA3 PO; +HYDR-3164 PO; +HYDROmorphone 2 MG/ML VIAL IV PRN; +IV RINGERS,LACTATED 1000ML 1,000 ML IV SCH; +LIDOCAINE 1% PF 2 ML VIAL. ID PRN; +MORPHINE SULFATE 4 MG/ML VIAL. IV PRN; +ONDA4TAB12 PO; +ONDANSETRON PF 4 MG/2 ML VIAL. IV PRN; +PANT20TA2 PO; +PROCHLORPERAZINE 10 MG/2 ML VIAL. IV PRN; +PROPOFOL 60 ML IV ONE; +SIMV20TA3 PO; +fentaNYL PF VIAL 100 MCG/2 ML VIAL IV PRN
--- NOTE | 2018-06-18 07:53 | HP ---
ADMIT DATE: 06/18/2018 HISTORY OF PRESENT ILLNESS: This is a 72-year-old female whose past medical history is significant for hypertension, hypothyroidism, gastroesophageal reflux disease with Torres's and hyperlipidemia seen for anemia. Blood counts recently hemoglobin is 11.9. She has had some dark stools. Denies any recent change in bowel habits, diarrhea or constipation. Denies any change in weight or appetite, otherwise without additional complaints. PAST MEDICAL HISTORY: Hypertension, hypothyroidism, Torres's and hyperlipidemia. ALLERGIES: None. MEDICATIONS: Include ____ PAST SURGICAL HISTORY: Appendectomy. SOCIAL HISTORY: Nonsmoker and nondrinker. REVIEW OF SYSTEMS: Per records. PHYSICAL EXAMINATION: GENERAL: Reveals a well-developed, well-nourished female who is alert and cooperative in no acute distress. VITAL SIGNS: Temperature 98.6, pulse 75 and respiratory rate is 20. HEENT: Normocephalic and atraumatic head. Pupils and extraocular muscles are not tested. Sclerae anicteric. NECK: Supple. LUNGS: Clear. CARDIOVASCULAR: Reveals an S1, S2 without S3, S4 or appreciable murmur. ABDOMEN: Reveals soft abdomen, normal bowel sounds without appreciable hepatosplenomegaly. EXTREMITIES: Reveals no cyanosis, clubbing or edema. IMPRESSION: Anemia with Torres's. We recommend interval EGD and colonoscopy to further assess. Risks and benefits of the procedure including risk of hemorrhage and perforation have been discussed with the patient and family and are willing to proceed. JORGE TIWARI MD DR: ELIZABETH/jostin JOB#: [id number] / [id number]
[2018-06-18 08:07] VITALS: BP 132/70
== END | disposition home or self-care (01) ==
LOC: ENDOS 06:10
PROVIDERS: ATTEND Internal Medicine Gastroenterology
DX: K21.0 Gastro-esophageal reflux disease with esophagitis (principal); K29.50 Unspecified chronic gastritis without bleeding; K64.0 First degree hemorrhoids; D50.9 Iron deficiency anemia, unspecified; I10 Essential (primary) hypertension; E03.9 Hypothyroidism, unspecified; E78.5 Hyperlipidemia, unspecified; Z90.49 Acquired absence of other specified parts of digestive tract
CPT/HCPCS: 43235; 45378; J2704

== ENCOUNTER 2020-02-25 21:06 | Observation (INO) | payer OTHER, MEDICAID ==
[~2020-02-25] VITALS: Ht 154.9 cm; Wt 69.7 kg
[~2020-02-25 21:06] MED LIST changes: -HYDROmorphone 2 MG/ML VIAL IV PRN; -IV RINGERS,LACTATED 1000ML 1,000 ML IV SCH; -LIDOCAINE 1% PF 2 ML VIAL. ID PRN; -MORPHINE SULFATE 4 MG/ML VIAL. IV PRN; -ONDANSETRON PF 4 MG/2 ML VIAL. IV PRN; -PROCHLORPERAZINE 10 MG/2 ML VIAL. IV PRN; -PROPOFOL 60 ML IV ONE; +SIMV20TA18 PO; -SIMV20TA3 PO; +SIMV40TA18 PO; -SIMV40TA3 PO; -fentaNYL PF VIAL 100 MCG/2 ML VIAL IV PRN
--- NOTE | 2020-02-25 21:43 | PHYS DOC ---
Past Medical History Past Medical History: CHF, GERD, High Cholesterol, Heart Disease, Hypertension, Hypothyroid, Other Additional Past Medical Histor: Thyroid Past Surgical History: Other Additional Past Surgical Histo: left foot Smoking Status: Never Smoker Alcohol Use: None Drug Use: None General Adult EDM: Chief Complaint: ABDOMINAL PAIN HPI: HPI: Patient is a 74 year old female who presents with a chief complaint of Diffuse abdominal pain. Patient has nonradiating epigastric and diffuse abdominal pain for the last 5 days. Initially worse with palpation, movement and eating. Patient had one episode of vomiting but is nauseous. Over the last 3 days patient had a headache and dizziness. Patient is also had some tinnitus in her left ear. Review of Systems: Review of Systems: Constitutional: Denies fever or chills. [] Eyes: Denies change in visual acuity. [] HENT: Denies nasal congestion or sore throat. [] Respiratory: Denies cough or shortness of breath. [] Cardiovascular: Denies chest pain or edema. [] GI: Complains abdominal pain, nausea, vomiting but no diarrhea or blood in stool : Denies dysuria. [] Musculoskeletal: Denies back pain or joint pain. [] Integument: Denies rash. [] Neurologic: Complains of headache and dizziness but no weakness or numbness Endocrine: Denies polyuria or polydipsia. [] Lymphatic: Denies swollen glands. [] Psychiatric: Denies depression or anxiety. [] Heart Score: Risk Factors: Risk Factors: DM, Current or recent (<one month) smoker, HTN, HLP, family history of CAD, obesity. Risk Scores: Score 0 - 3: 2.5% MACE over next 6 weeks - Discharge Home Score 4 - 6: 20.3% MACE over next 6 weeks - Admit for Clinical Observation Score 7 - 10: 72.7% MACE over next 6 weeks - Early Invasive Strategies Current Medications: Current Medications Medications (Trade) Dose Ordered Sig/Kailey Start Time Stop Time Status Last Admin Dose Admin Metoclopramide HCl (Reglan Vial) 5 mg 1X ONCE 02/25/20 21:45 02/25/20 21:46 Sodium Chloride 500 ml @ 500 mls/hr 1X ONCE 02/25/20 21:45 02/25/20 22:44 UNV Allergies: Allergies: Allergies Coded Allergies Type Severity Reaction Last Updated Verified No Known Drug Allergies 06/18/18 No Physical Exam: PE: Constitutional: Well developed, well nourished, no acute distress, non-toxic appearance. [] HENT: Normocephalic, atraumatic, bilateral external ears normal, no trismus nose normal. [] TMs normal Eyes: PERRLA, EOMI, conjunctiva normal, no discharge. [] Neck: Normal range of motion, no tenderness, supple, no stridor. [] Cardiovascular:Heart rate regular rhythm, peripheral pulses intact, cap refill is brisk Lungs & Thorax: Bilateral breath sounds clear, no respiratory distress Abdomen: Soft with diffuse tenderness without guarding rebound no masses no pulsatile mass Skin: Warm, dry, no erythema, no rash. [] Back: No tenderness, no CVA tenderness. [] Extremities: No tenderness, no cyanosis, no clubbing, ROM intact, no edema. [] Neurologic: Alert and oriented X 3, normal motor function, normal sensory function, no focal deficits noted. [] Cerebellar exam normal Psychologic: Affect normal, judgement normal, mood normal. [] Current Patient Data: Labs: Laboratory Tests Test 02/25/20 22:05 02/25/20 23:14 White Blood Count 12.7 x10^3/uL Red Blood Count 4.94 x10^6/uL Hemoglobin 13.0 g/dL Hematocrit 39.7 % Mean Corpuscular Volume 80 fL Mean Corpuscular Hemoglobin 26 pg Mean Corpuscular Hemoglobin Concent 33 g/dL Red Cell Distribution Width 14.8 % Platelet Count 267 x10^3/uL Neutrophils (%) (Auto) 71 % Lymphocytes (%) (Auto) 17 % Monocytes (%) (Auto) 9 % Eosinophils (%) (Auto) 2 % Basophils (%) (Auto) 1 % Neutrophils # (Auto) 9.1 x10^3/uL Lymphocytes # (Auto) 2.1 x10^3/uL Monocytes # (Auto) 1.1 x10^3/uL Eosinophils # (Auto) 0.3 x10^3/uL Basophils # (Auto) 0.1 x10^3/uL Sodium Level 141 mmol/L Potassium Level 4.2 mmol/L Chloride Level 104 mmol/L Carbon Dioxide Level 27 mmol/L Anion Gap 10 Blood Urea Nitrogen 18 mg/dL Creatinine 0.6 mg/dL Estimated GFR (Cockcroft-Gault) 97.2 BUN/Creatinine Ratio 30 Glucose Level 119 mg/dL Calcium Level 8.9 mg/dL Total Bilirubin 0.4 mg/dL Aspartate Amino Transf (AST/SGOT) 20 U/L Alanine Aminotransferase (ALT/SGPT) 20 U/L Alkaline Phosphatase 151 U/L Troponin I Quantitative < 0.017 ng/mL NA-Hmi-I-Type Natriuretic Peptide 127 pg/mL Total Protein 7.6 g/dL Albumin 3.6 g/dL Albumin/Globulin Ratio 0.9 Lipase 123 U/L Urine Collection Type Unknown Urine Color Yellow Urine Clarity Clear Urine pH 6.0 Urine Specific Wheatcroft 1.010 Urine Protein Negative mg/dL Urine Glucose (UA) Negative mg/dL Urine Ketones (Stick) Negative mg/dL Urine Blood Negative Urine Nitrite Negative Urine Bilirubin Negative Urine Urobilinogen Dipstick 0.2 mg/dL Urine Leukocyte Esterase Negative Urine RBC 0 /HPF Urine WBC 0 /HPF Urine Squamous Epithelial Cells Few /LPF Urine Bacteria 0 /HPF Current Medications Medications (Trade) Dose Ordered Sig/Kailey Route PRN Reason Start Time Stop Time Status Last Admin Dose Admin Metoclopramide HCl (Reglan Vial) 5 mg 1X ONCE IVP 02/25/20 21:45 02/25/20 21:46 DC 02/25/20 22:13 Sodium Chloride 500 ml @ 500 mls/hr 1X ONCE IV 02/25/20 21:45 02/25/20 22:44 DC 02/25/20 22:13 Iohexol (Omnipaque 300 Mg/ml) 75 ml 1X ONCE IV 02/25/20 22:45 02/25/20 22:46 DC 02/25/20 22:46 Info (CONTRAST GIVEN -- Rx MONITORING) 1 each PRN DAILY PRN MC SEE COMMENTS 02/25/20 22:45 02/27/20 22:44 Vital Signs: Vital Signs Date Time Temp Pulse Resp B/P (MAP) Pulse Ox O2 Delivery O2 Flow Rate FiO2 02/25/20 23:33 76 20 142/65 (90) 94 Room Air 02/25/20 23:03 78 20 134/61 (85) 95 Room Air 02/25/20 22:22 62 20 144/60 (88) 97 Room Air 02/25/20 22:00 64 20 165/74 (104) 98 Room Air 02/25/20 21:31 98.0 61 24 141/49 (79) 93 Room Air 98.0 02/25/20 21:30 60 22 149/68 (95) 97 Room Air Vital Signs Date Time Temp Pulse Resp B/P (MAP) Pulse Ox O2 Delivery O2 Flow Rate FiO2 02/25/20 21:31 98.0 61 24 141/49 (79) 93 Room Air 98.0 EKG: EKG: EKG interpreted by me sinus bradycardia with a rate of 58 normal axis normal intervals normal ST segments [] Radiology/Procedures: Radiology/Procedures: [][facility] [address] [place] [address] IMAGING REPORT Signed PATIENT: BIRDIE SORIANO ACCOUNT: [id number] : 1945 LOCATION: ER AGE: 74 SEX: F EXAM STATUS: REG ER ORD. PHYSICIAN: JORGE GRAY MD REASON: dizzy PROCEDURE: CT HEAD WO CONTRAST EXAM: CT HEAD WITHOUT CONTRAST. HISTORY: Dizziness. TECHNIQUE: Computed tomography of the head was performed without intravenous contrast. One or more of the following individualized dose reduction techniques were utilized for this examination: 1. Automated exposure control. 2. Adjustment of the mA and/or kV according to patient size. 3. Use of iterative reconstruction technique. COMPARISON: None. FINDINGS: There is no intracranial hemorrhage. Hypoattenuation within the periventricular white matter indicates mild chronic microangiopathic change. Prominence of the lateral ventricles and hemispheric sulci indicates mild atrophy. The visualized paranasal sinuses appear clear. There are changes of bilateral cataract surgery. The temporal bones are unremarkable. The calvarium reveals no suspicious lesions. IMPRESSION: 1. No acute intracranial findings. Electronically signed by: Delaney Eden MD (02/25/2020 10:49 PM) [facility] DICTATED and SIGNED BY: ANGEL EDEN MD DATE: 02/25/20 2249 [facility] [address] [place] [address] IMAGING REPORT Signed PATIENT: BIRDIE SORIANO ACCOUNT: [id number] : 1945 LOCATION: ER AGE: 74 SEX: F EXAM STATUS: REG ER ORD. PHYSICIAN: JORGE GRAY MD REASON: dizzy PROCEDURE: PORTABLE CHEST 1V EXAM: CHEST ONE VIEW. HISTORY: Dizziness. COMPARISON: 05/26/2018. FINDINGS: A frontal view of the chest is obtained. There are mild bilateral basilar predominant interstitial infiltrates. These are not clearly changed since the prior study. There is no pneumothorax or pleural effusion. The heart is not enlarged. IMPRESSION: 1. Chronic appearing basilar predominant interstitial infiltrates. Correlate for interstitial lung disease. Electronically signed by: Delaney Eden MD (02/25/2020 10:27 PM) [facility] DICTATED and SIGNED BY: ANGEL EDEN MD DATE: 02/25/202226 [facility] [address] [place] [address] IMAGING REPORT Signed PATIENT: BIRDIE SORIANO ACCOUNT: [id number] : 1945 LOCATION: ER AGE: 74 SEX: F EXAM STATUS: REG ER ORD. PHYSICIAN: JORGE GRAY MD REASON: dizzy, ABDOMINAL PAIN PROCEDURE: CT ABD PELV W/ IV CONTRST ONLY Exam: CT abdomen/pelvis with intravenous contrast Indication: Dizzy, abdominal pain Comparison: CT abdomen and pelvis 11/19/2011 Technique: Helical CT imaging performed of the abdomen and pelvis after the intravenous administration of 75 mL Omnipaque 300 intravenous contrast. Sagittal and coronal reformats were obtained. One or more of the following individualized dose reduction techniques were utilized for this examination: 1. Automated exposure control 2. Adjustment of the mA and/or kV according to patient size 3. Use of iterative reconstruction technique. Findings: Lower chest: Minimal scattered tree-in-bud opacities in the lung bases, decreased from prior exam. Heart is normal in size. Liver: Normal. Gallbladder/Biliary Tree: Cholelithiasis. Bile ducts are normal. Pancreas: Normal. Spleen: Normal. Adrenal Glands: Normal. Kidneys/Ureters/Bladder: Kidneys are normal in size. There are a few subcentimeter hypodensities that are too small to characterize bilaterally. No hydronephrosis. Ureters and bladder are normal. Reproductive Organs: Uterus and ovaries are normal. Stomach, small bowel, and colon: Stomach, small bowel, and colon are normal. Probable surgical changes of appendectomy. Vasculature: Abdominal aorta is normal in caliber. Minimal calcified atherosclerosis. Lymph Nodes: No lymphadenopathy. Peritoneum and retroperitoneum: No free fluid or free air. Bones: There is a compression fracture of L2 with mild height loss. Mild degenerative disc disease in the lower thoracic spine. Moderate facet arthrosis at L4-L5 and L5-S1. IMPRESSION: 1. No acute abnormality. 2. Cholelithiasis. 3. Compression fracture of T2 with mild height loss, likely old. Electronically signed by: Sury Lock MD (02/25/2020 11:22 PM) [id number] DICTATED and SIGNED BY: SURY LOCK MD DATE: 02/25/202321 [facility] [address] [place] [address] IMAGING REPORT Signed PATIENT: BIRDIE SORIANO ACCOUNT: [id number] : 1945 LOCATION: ER AGE: 74 SEX: F EXAM STATUS: REG ER ORD. PHYSICIAN: JORGE GRAY MD REASON: ruq, r/o choleycystitis PROCEDURE: ABDOMEN LTD EXAMINATION: ABDOMEN LTD 02/25/2020 11:31 PM INDICATION: Right upper quadrant pain, rule out cholecystitis TECHNIQUE: Aparicio scale and color Doppler ultrasound images of the right upper quadrant were obtained. COMPARISON: CT abdomen and pelvis 02/25/2020 FINDINGS: Liver: The liver is normal in size measuring 14.5 cm in length. There is mildly increased hepatic echogenicity. No focal liver lesion. Gallbladder: The gallbladder is normal in caliber. There is cholelithiasis. The gallbladder wall is normal in thickness measuring 2 mm. Sonographic Storm's sign is negative. Bile ducts: The common bile duct is normal measuring 3 mm. No intrahepatic biliary duct dilatation. Right kidney: The right kidney measures 11.5 x 6.1 x 4.5 cm. Normal cortical thickness and echogenicity. No hydronephrosis. Other: Abdominal aorta and inferior vena cava are normal where visualized. The pancreas is normal where visualized. IMPRESSION: 1. Cholelithiasis. No sonographic evidence of acute cholecystitis 2. Hepatic steatosis. Electronically signed by: Sury Lock MD (02/26/2020 12:25 AM) [id number] DICTATED and SIGNED BY: SURY LOCK MD DATE: 02/26/20 0025 Course & Med Decision Making: Course & Med Decision Making Pertinent Labs and Imaging studies reviewed. (See chart for details) [] Patient reassessed at 1120 and is clinically improved. 74-year-old female presents with multiple complaints including upper abdominal pain, work-up reveals gallstones without evidence of acute cholecystitis. Patient also has vertiginous-like dizziness. On multiple reassessments patient is clinically improved. Her dizziness had her gallstones and her advanced age with comorbidities I will put her in observation Dr. Anderson. Consult is been placed with general surgery as well as neurology. Ashley Disclaimer: Ashley Disclaimer: This electronic medical record was generated, in whole or in part, using a voice recognition dictation system. Departure Departure Impression: Primary Impression: Gallstones Additional Impressions: Dizziness Upper abdominal pain Disposition: ADMITTED INPT THIS HOSP Admitting Physician: LEA PARIS) Condition: STABLE Referrals: UNKNOWN PCP NAME (PCP) JORGE GRAY MD Feb 25, 2020 21:43
[2020-02-25] MEDS ORDERED: IV NORMAL SALINE 500ML BAG 500 ML IV ONE (21:45)
[2020-02-25] MEDS ORDERED: METOCLOPRAMIDE HCL 10 MG/2 ML VIAL. IVP ONE (21:45)
[2020-02-25 22:12] LABS: BASO # 0.1 x10^3/uL (0.0-0.2); BASO % 1 % (0-3); EOS # 0.3 x10^3/uL (0.0-0.7); EOS % 2 % (0-3); HEMATOCRIT 39.7 % (36.0-47.0); LYMPH # 2.1 x10^3/uL (1.0-4.8); LYMPH % 17 % (24-48); MEAN CORPUSCULAR HEMOGLOBIN 26 pg (25-35); MEAN CORPUSCULAR HGB CONC 33 g/dL (31-37); MEAN CORPUSCULAR VOLUME 80 fL (79-100); MONO # 1.1 x10^3/uL (0.0-1.1); MONO % 9 % (0-9); NEUT # 9.1 x10^3/uL (1.8-7.7); NEUT % 71 % (31-73); PLATELET COUNT 267 x10^3/uL (140-400); RED BLOOD COUNT 4.94 x10^6/uL (3.50-5.40); RED CELL DISTRIBUTION WIDTH 14.8 % (11.5-14.5); WHITE BLOOD COUNT 12.7 x10^3/uL (4.0-11.0)
[2020-02-25 22:25] LABS: CALCIUM 8.9 mg/dL (8.5-10.1); CREATININE 0.6 mg/dL (0.6-1.0); GFR 97.2; POTASSIUM 4.2 mmol/L (3.5-5.1)
[2020-02-25 22:27] LABS: ALBUMIN 3.6 g/dL (3.4-5.0); ALBUMIN/GLOBULIN RATIO 0.9 (1.0-1.7); TOTAL BILIRUBIN 0.4 mg/dL (0.2-1.0); TOTAL PROTEIN 7.6 g/dL (6.4-8.2)
--- NOTE | 2020-02-25 22:30 | RAD ---
EXAM: CHEST ONE VIEW. HISTORY: Dizziness. COMPARISON: 05/26/2018. FINDINGS: A frontal view of the chest is obtained. There are mild bilateral basilar predominant interstitial infiltrates. These are not clearly changed since the prior study. There is no pneumothorax or pleural effusion. The heart is not enlarged. IMPRESSION: 1. Chronic appearing basilar predominant interstitial infiltrates. Correlate for interstitial lung disease. Electronically signed by: Delaney Eden MD (02/25/2020 10:27 PM) [facility]
[2020-02-25] MEDS ORDERED: IOHEXOL 300 MG/ML 100ML VIAL. IV ONE (22:45)
[2020-02-25] MEDS ORDERED: CONTRAST GIVEN. MC PRN (22:45)
--- NOTE | 2020-02-25 22:52 | RAD ---
EXAM: CT HEAD WITHOUT CONTRAST. HISTORY: Dizziness. TECHNIQUE: Computed tomography of the head was performed without intravenous contrast. One or more of the following individualized dose reduction techniques were utilized for this examination: 1. Automated exposure control. 2. Adjustment of the mA and/or kV according to patient size. 3. Use of iterative reconstruction technique. COMPARISON: None. FINDINGS: There is no intracranial hemorrhage. Hypoattenuation within the periventricular white matter indicates mild chronic microangiopathic change. Prominence of the lateral ventricles and hemispheric sulci indicates mild atrophy. The visualized paranasal sinuses appear clear. There are changes of bilateral cataract surgery. The temporal bones are unremarkable. The calvarium reveals no suspicious lesions. IMPRESSION: 1. No acute intracranial findings. Electronically signed by: Delaney Eden MD (02/25/2020 10:49 PM) [facility]
--- NOTE | 2020-02-25 23:25 | RAD ---
Exam: CT abdomen/pelvis with intravenous contrast Indication: Dizzy, abdominal pain Comparison: CT abdomen and pelvis 11/19/2011 Technique: Helical CT imaging performed of the abdomen and pelvis after the intravenous administration of 75 mL Omnipaque 300 intravenous contrast. Sagittal and coronal reformats were obtained. One or more of the following individualized dose reduction techniques were utilized for this examination: 1. Automated exposure control 2. Adjustment of the mA and/or kV according to patient size 3. Use of iterative reconstruction technique. Findings: Lower chest: Minimal scattered tree-in-bud opacities in the lung bases, decreased from prior exam. Heart is normal in size. Liver: Normal. Gallbladder/Biliary Tree: Cholelithiasis. Bile ducts are normal. Pancreas: Normal. Spleen: Normal. Adrenal Glands: Normal. Kidneys/Ureters/Bladder: Kidneys are normal in size. There are a few subcentimeter hypodensities that are too small to characterize bilaterally. No hydronephrosis. Ureters and bladder are normal. Reproductive Organs: Uterus and ovaries are normal. Stomach, small bowel, and colon: Stomach, small bowel, and colon are normal. Probable surgical changes of appendectomy. Vasculature: Abdominal aorta is normal in caliber. Minimal calcified atherosclerosis. Lymph Nodes: No lymphadenopathy. Peritoneum and retroperitoneum: No free fluid or free air. Bones: There is a compression fracture of L2 with mild height loss. Mild degenerative disc disease in the lower thoracic spine. Moderate facet arthrosis at L4-L5 and L5-S1. IMPRESSION: 1. No acute abnormality. 2. Cholelithiasis. 3. Compression fracture of T2 with mild height loss, likely old. Electronically signed by: Sury Lock MD (02/25/2020 11:22 PM) [id number]
[2020-02-25 23:30] LABS: BILIRUBIN,URINE NEGATIVE (NEG); CLARITY,URINE CLEAR; COLOR,URINE YELLOW; NITRITE,URINE NEGATIVE (NEG); PROTEIN,URINE NEGATIVE (NEG-TRACE); UROBILINOGEN,URINE 0.2 mg/dL (0.2 mg/dL)
[2020-02-25 23:31] LABS: BACTERIA,URINE 0 /HPF (0-FEW); RBC,URINE 0 /HPF (0-2); WBC,URINE 0 /HPF (0-4)
--- NOTE | 2020-02-26 00:28 | RAD ---
EXAMINATION: ABDOMEN LTD 02/25/2020 11:31 PM INDICATION: Right upper quadrant pain, rule out cholecystitis TECHNIQUE: Aparicio scale and color Doppler ultrasound images of the right upper quadrant were obtained. COMPARISON: CT abdomen and pelvis 02/25/2020 FINDINGS: Liver: The liver is normal in size measuring 14.5 cm in length. There is mildly increased hepatic echogenicity. No focal liver lesion. Gallbladder: The gallbladder is normal in caliber. There is cholelithiasis. The gallbladder wall is normal in thickness measuring 2 mm. Sonographic Storm's sign is negative. Bile ducts: The common bile duct is normal measuring 3 mm. No intrahepatic biliary duct dilatation. Right kidney: The right kidney measures 11.5 x 6.1 x 4.5 cm. Normal cortical thickness and echogenicity. No hydronephrosis. Other: Abdominal aorta and inferior vena cava are normal where visualized. The pancreas is normal where visualized. IMPRESSION: 1. Cholelithiasis. No sonographic evidence of acute cholecystitis 2. Hepatic steatosis. Electronically signed by: Sury Lock MD (02/26/2020 12:25 AM) [id number]
[2020-02-26] MEDS ORDERED: MORPHINE SULFATE 2 MG/ML VIAL. IV PRN (01:00)
[2020-02-26] MEDS ORDERED: ONDANSETRON PF 4 MG/2 ML VIAL. IV PRN (01:00)
--- NOTE | 2020-02-26 01:45 | NUR ---
Patient admitted from ER to room 438 per cart. Admitting diagnosis: headache,abdominal pain,nausea & vomiting,dizziness,back pain and positive for gall stones. Patient is alert and oriented X4. Patient is amharic speaking. Patient c/o headache with abdominal cramping and throbbing for 5 days. Patient states the pain is worse when she is up walking, eating or with palpitation of abdomen. Patient also c/o of ringing in left ear and pain in both ears. Patient lives at home with family. In mild distress on admission. Will continue to monitor.
[2020-02-26 03:00] VITALS: BP 121/67
[2020-02-26] MEDS: IV NORMAL SALINE 1000ML BAG 1,000 ML IV SCH ×3 (03:21→17:00)
--- NOTE | 2020-02-26 04:34 | EKG ---
[facility] [address] [place] [address] Test Date: 2020-02-25 Test Time: 21:41:11 Pat Name: BIRDIE SORIANO Department: Room: Gender: F [employer]: : 1945 Requested By: JORGE GRAY Order Number: [id number] Reading MD: Measurements Intervals [place] Rate: 58 P: 39 MT: 148 QRS: 23 QRSD: 94 T: 22 QT: 442 QTc: 438 Interpretive Statements SINUS RHYTHM NORMAL ECG RI6.02 No previous ECG available for comparison
[2020-02-26 06:40] VITALS: BP 115/56
--- NOTE | 2020-02-26 09:19 | PDOC2 ---
CONSULT Date of Consult Date of Consult DATE: 02/26/20 TIME: 09:13 Reason for Consult Reason for Consult: Abdominal pain and CT scan showing gallstones Referring Physician Referring Physician: Justin Identification/Chief Complaint Chief Complaint Dizziness Source Source: Chart review, Patient History of Present Illness Reason for Visit: 74-year-old female Ghanaian-speaking came to the emergency department with complaints of dizziness and ringing in her ear is the main reason she came to the emergency department she did describe some abdominal pain yesterday but this morning she states he is not having any abdominal pain denies any nausea vomiting but does states she continues to have dizziness and ringing in her ear Past Medical History Cardiovascular: HTN Pulmonary: No pertinent hx GI: No pertinent hx Heme/Onc: No pertinent hx Hepatobiliary: No pertinent hx Psych: No pertinent hx Rheumatologic: No pertinent hx Infectious disease: No pertinent hx Renal/: No pertinent hx Endocrine: No pertinent hx Past Surgical History Past Surgical History: No pertinent history Family History Family History: Heart Disease, High Cholestrol, Hypertension Social History ALCOHOL: none Drugs: None Current Problem List Problem List Problems Medical Problems: (1) Upper abdominal pain Status: Acute Current Medications Current Medications Current Medications Metoclopramide HCl (Reglan Vial) 5 mg 1X ONCE IVP Last administered on 02/25/20at 22:13; Start 02/25/20 at 21:45; Stop 02/25/20 at 21:46; Status DC Sodium Chloride 500 ml @ 500 mls/hr 1X ONCE IV Last administered on 02/25/20at 22:13; Start 02/25/20 at 21:45; Stop 02/25/20 at 22:44; Status DC Iohexol (Omnipaque 300 Mg/ml) 75 ml 1X ONCE IV Last administered on 02/25/20at 22:46; Start 02/25/20 at 22:45; Stop 02/25/20 at 22:46; Status DC Info (CONTRAST GIVEN -- Rx MONITORING) 1 each PRN DAILY PRN MC SEE COMMENTS; Start 02/25/20 at 22:45; Stop 02/27/20 at 22:44 Ondansetron HCl (Zofran) 4 mg PRN Q8HRS PRN IV NAUSEA/VOMITING Last administered on 02/26/20at 01:19; Start 02/26/20 at 01:00; Stop 02/27/20 at 00 :59 Morphine Sulfate (Morphine Sulfate) 2 mg PRN Q2HR PRN IV PAIN Last administered on 02/26/20at 01:20; Start 02/26/20 at 01:00; Stop 02/27/20 at 00:59 Sodium Chloride 1,000 ml @ 125 mls/hr Q8H IV Last administered on 02/26/20at 03:21; Start 02/26/20 at 01:00; Stop 02/27/20 at 00:59 Active Scripts Active Reported Protonix (Pantoprazole Sodium) 20 Mg Tablet.dr 40 Mg PO DAILY Furosemide 20 Mg Tablet 1 Tab PO DAILY Simvastatin 20 Mg Tablet 1 Tab PO QHS [place] 5-325 Tablet (Acetaminophen/Hydrocodone Bitart) 1 Each Tablet 1 Tab PO BID Carvedilol (Carvedilol) 6.25 Mg Tablet 6.25 Mg PO BID Dicyclomine Hcl 10 Mg Capsule 10 Mg PO DAILY Levothyroxine Sodium 100 Mcg Tablet 100 Mcg PO DAILYAC K-Tab ER (Potassium Chloride) 20 Meq Tablet.er 20 Meq PO DAILY Tramadol Hcl 50 Mg Tablet 50 Mg PO DAILY PRN Tramadol Hcl 50 Mg Tablet 50 Mg PO PRN Q4HRS PRN Allergies Allergies: Coded Allergies: No Known Drug Allergies (Unverified , 06/18/18) ROS General: YES: Other (Dizziness) HEENT: YES: Tinnitus Physical Exam General: Alert, Oriented X3, Cooperative, No acute distress HEENT: Atraumatic Lungs: Clear to auscultation, Normal air movement Heart: Regular rate, No murmurs Abdomen: Normal bowel sounds, Soft, Other (Tender to palpation left lower quad rant nontender in the right upper quadrant or epigastrium) Extremities: No edema Skin: No significant lesion Neuro: Normal speech Psych/Mental Status: Mental status NL Vitals VITALS Vital Signs Date Time Temp Pulse Resp B/P (MAP) Pulse Ox O2 Delivery O2 Flow Rate FiO2 02/26/20 06:40 97.9 64 18 115/56 (75) 95 Room Air 97.9 Labs Labs Laboratory Tests Test 02/25/20 22:05 02/25/20 23:14 White Blood Count 12.7 x10^3/uL (4.0-11.0) Red Blood Count 4.94 x10^6/uL (3.50-5.40) Hemoglobin 13.0 g/dL (12.0-15.5) Hematocrit 39.7 % (36.0-47.0) Mean Corpuscular Volume 80 fL (79-100) Mean Corpuscular Hemoglobin 26 pg (25-35) Mean Corpuscular Hemoglobin Concent 33 g/dL (31-37) Red Cell Distribution Width 14.8 % (11.5-14.5) Platelet Count 267 x10^3/uL (140-400) Neutrophils (%) (Auto) 71 % (31-73) Lymphocytes (%) (Auto) 17 % (24-48) Monocytes (%) (Auto) 9 % (0-9) Eosinophils (%) (Auto) 2 % (0-3) Basophils (%) (Auto) 1 % (0-3) Neutrophils # (Auto) 9.1 x10^3/uL (1.8-7.7) Lymphocytes # (Auto) 2.1 x10^3/uL (1.0-4.8) Monocytes # (Auto) 1.1 x10^3/uL (0.0-1.1) Eosinophils # (Auto) 0.3 x10^3/uL (0.0-0.7) Basophils # (Auto) 0.1 x10^3/uL (0.0-0.2) Sodium Level 141 mmol/L (136-145) Potassium Level 4.2 mmol/L (3.5-5.1) Chloride Level 104 mmol/L (98-107) Carbon Dioxide Level 27 mmol/L (21-32) Anion Gap 10 (6-14) Blood Urea Nitrogen 18 mg/dL (7-20) Creatinine 0.6 mg/dL (0.6-1.0) Estimated GFR (Cockcroft-Gault) 97.2 BUN/Creatinine Ratio 30 (6-20) Glucose Level 119 mg/dL (70-99) Calcium Level 8.9 mg/dL (8.5-10.1) Total Bilirubin 0.4 mg/dL (0.2-1.0) Aspartate Amino Transf (AST/SGOT) 20 U/L (15-37) Alanine Aminotransferase (ALT/SGPT) 20 U/L (14-59) Alkaline Phosphatase 151 U/L (46-116) Troponin I Quantitative < 0.017 ng/mL (0.000-0.055) CF-Yjo-U-Type Natriuretic Peptide 127 pg/mL (0-449) Total Protein 7.6 g/dL (6.4-8.2) Albumin 3.6 g/dL (3.4-5.0) Albumin/Globulin Ratio 0.9 (1.0-1.7) Lipase 123 U/L (73-393) Urine Collection Type Unknown Urine Color Yellow Urine Clarity Clear Urine pH 6.0 (<5.0-8.0) Urine Specific Mobile 1.010 (1.000-1.030) Urine Protein Negative mg/dL (NEG-TRACE) Urine Glucose (UA) Negative mg/dL (NEG) Urine Ketones (Stick) Negative mg/dL (NEG) Urine Blood Negative (NEG) Urine Nitrite Negative (NEG) Urine Bilirubin Negative (NEG) Urine Urobilinogen Dipstick 0.2 mg/dL (0.2 mg/dL) Urine Leukocyte Esterase Negative (NEG) Urine RBC 0 /HPF (0-2) Urine WBC 0 /HPF (0-4) Urine Squamous Epithelial Cells Few /LPF Urine Bacteria 0 /HPF (0-FEW) Laboratory Tests Test 02/25/20 22:05 02/25/20 23:14 White Blood Count 12.7 x10^3/uL (4.0-11.0) Red Blood Count 4.94 x10^6/uL (3.50-5.40) Hemoglobin 13.0 g/dL (12.0-15.5) Hematocrit 39.7 % (36.0-47.0) Mean Corpuscular Volume 80 fL (79-100) Mean Corpuscular Hemoglobin 26 pg (25-35) Mean Corpuscular Hemoglobin Concent 33 g/dL (31-37) Red Cell Distribution Width 14.8 % (11.5-14.5) Platelet Count 267 x10^3/uL (140-400) Neutrophils (%) (Auto) 71 % (31-73) Lymphocytes (%) (Auto) 17 % (24-48) Monocytes (%) (Auto) 9 % (0-9) Eosinophils (%) (Auto) 2 % (0-3) Basophils (%) (Auto) 1 % (0-3) Neutrophils # (Auto) 9.1 x10^3/uL (1.8-7.7) Lymphocytes # (Auto) 2.1 x10^3/uL (1.0-4.8) Monocytes # (Auto) 1.1 x10^3/uL (0.0-1.1) Eosinophils # (Auto) 0.3 x10^3/uL (0.0-0.7) Basophils # (Auto) 0.1 x10^3/uL (0.0-0.2) Sodium Level 141 mmol/L (136-145) Potassium Level 4.2 mmol/L (3.5-5.1) Chloride Level 104 mmol/L (98-107) Carbon Dioxide Level 27 mmol/L (21-32) Anion Gap 10 (6-14) Blood Urea Nitrogen 18 mg/dL (7-20) Creatinine 0.6 mg/dL (0.6-1.0) Estimated GFR (Cockcroft-Gault) 97.2 BUN/Creatinine Ratio 30 (6-20) Glucose Level 119 mg/dL (70-99) Calcium Level 8.9 mg/dL (8.5-10.1) Total Bilirubin 0.4 mg/dL (0.2-1.0) Aspartate Amino Transf (AST/SGOT) 20 U/L (15-37) Alanine Aminotransferase (ALT/SGPT) 20 U/L (14-59) Alkaline Phosphatase 151 U/L (46-116) Troponin I Quantitative < 0.017 ng/mL (0.000-0.055) GU-Raf-Z-Type Natriuretic Peptide 127 pg/mL (0-449) Total Protein 7.6 g/dL (6.4-8.2) Albumin 3.6 g/dL (3.4-5.0) Albumin/Globulin Ratio 0.9 (1.0-1.7) Lipase 123 U/L (73-393) Urine Collection Type Unknown Urine Color Yellow Urine Clarity Clear Urine pH 6.0 (<5.0-8.0) Urine Specific Mobile 1.010 (1.000-1.030) Urine Protein Negative mg/dL (NEG-TRACE) Urine Glucose (UA) Negative mg/dL (NEG) Urine Ketones (Stick) Negative mg/dL (NEG) Urine Blood Negative (NEG) Urine Nitrite Negative (NEG) Urine Bilirubin Negative (NEG) Urine Urobilinogen Dipstick 0.2 mg/dL (0.2 mg/dL) Urine Leukocyte Esterase Negative (NEG) Urine RBC 0 /HPF (0-2) Urine WBC 0 /HPF (0-4) Urine Squamous Epithelial Cells Few /LPF Urine Bacteria 0 /HPF (0-FEW) Images Images Ultrasound of the abdomen shows gallstones but no evidence of pericholecystic inflammation thickening of the gallbladder wall or pericholecystic fluid, no Storm sign at the time of ultrasound CT scan shows gallstones again with no evidence of pericholecystic inflammation Assessment/Plan Assessment/Plan Patient appears to have asymptomatic gallstones in light of her being admitted to the hospital for other issues would recommend follow-up as outpatient for her gallstones if they become an issue Advance diet as tolerated ESTEPHANIA PLATA MD Feb 26, 2020 09:18
[2020-02-26 11:00] VITALS: BP 108/50
--- NOTE | 2020-02-26 12:37 | SSS ---
ADMIT DATE: 02/26/2020 CHIEF COMPLAINT: Abdominal pain and vertigo. HISTORY OF PRESENT ILLNESS: The patient is a pleasant 74-year-old female who presents with the above chief complaints. Basically, she has been having abdominal pain intermittently for months. It got worse over the past 5 days, rated at 7/10. She has associated nausea, worse with food, better with no food, described as irritating. She was admitted overnight for observation. This morning, we consulted Dr. Maria. At this point, no surgery is planned. Her labs are reasonable. Her white count is barely high at 12.7. She has got a slightly elevated alkaline phosphatase of 151. Clinically, she looks great. We are considering discharge this afternoon if no surgery is planned. PAST MEDICAL HISTORY: 1. Probable chronic gallstones. 2. Hypertension. ALLERGIES: None. FAMILY HISTORY: Diabetes. SOCIAL HISTORY: She does not drink, smoke or take drugs. MEDICATIONS: Reviewed. Please refer to the MRAD. REVIEW OF SYSTEMS: GENERAL: No history of weight change, weakness or fevers. SKIN: No bruising, hair changes or rashes. EYES: No blurred, double or loss of vision. NOSE AND THROAT: No history of nosebleeds, hoarseness or sore throat. HEART: No history of palpitations, chest pain or shortness of breath on exertion. LUNGS: Denies cough, hemoptysis, wheezing or shortness of breath. GASTROINTESTINAL: Denies changes in appetite, nausea, vomiting, diarrhea or constipation. GENITOURINARY: No history of frequency, urgency, hesitancy or nocturia. NEUROLOGIC: Denies history of numbness, tingling, tremor or weakness. PSYCHIATRIC: No history of panic, anxiety or depression. ENDOCRINE: No history of heat or cold intolerance, polyuria or polydipsia. EXTREMITIES: Denies muscle weakness, joint pain, pain on walking or stiffness. PHYSICAL EXAMINATION: VITALS: Within normal limits and are stable. GENERAL: No apparent distress. Alert and oriented. HEENT: Normal cephalic atraumatic, external auditory canals are patent EYES: Extraocular muscles are intact, pupils are equally round and reactive to light and accommodation MUSCULOSKELETAL: Well developed, well nourished, good range of motion ENDOCRINE: No thyromegaly was palpated LYMPHATICS: No cervical chain or axillary nodes were noted HEMATOPOIETIC: No bruising NECK: Supple, no JVD, no thyromegaly was noted. LUNGS: Clear to auscultation in all lung yeh without rhonchi or wheezing. HEART: RRR, S1, S2 present. Peripheral pulses intact, no obvious murmurs were noted. ABDOMEN: Soft, nontender. Positive bowel sounds no organomegaly, normal bowel sounds. EXTREMITIES: Without any cyanosis, clubbing, or edema. Pedal pulses intact, Homans sign is negative. NEUROLOGIC: Normal speech, normal tone. A & O x3, moves all extremities, no obvious focal deficits. PSYCHIATRIC: Normal affect, normal mood. Stable. SKIN: No ulcerations or rashes, good skin turgor, no jaundice. VASCULAR: Good capillary refill, neurovascular bundle appears to be intact. ASSESSMENT AND PLAN: Resolving abdominal pain secondary to chronic gallstones with a slight leukocytosis. Clinically, she looks great. Her vital signs are normal. She is considering going home. I put a note in to go ahead and try to feed her this evening if okay with surgery, and if she tolerates a diet, we would be able to let her go home and follow up closely as an outpatient. DISPOSITION: Home. ACTIVITY: As tolerated. DIET: Low sodium. MEDICATIONS: Please see the MRAD. TOTAL TIME: 34 minutes. JOSE NGUYEN DO DR: REJI/jostin JOB#: [id number] / [id number]
[2020-02-26] MEDS: LEVOTHYROXINE 100 MCG TABLET PO SCH (13:10)
[2020-02-26] MEDS: PANTOPRAZOLE 40 MG TABLET.DR. PO SCH (13:10)
[2020-02-26] MEDS: FUROSEMIDE 20 MG TABLET PO SCH (13:11)
[2020-02-26] MEDS: DICYCLOMINE HCL 10 MG CAPSULE PO SCH (13:11)
[2020-02-26 15:00] VITALS: BP 107/59
[2020-02-26] MEDS ORDERED: ACETAMINOPHEN 325 MG TABLET. PO PRN (17:00)
[2020-02-26] MEDS: CARVEDILOL 6.25 MG TABLET. PO SCH (17:02)
[2020-02-26 18:16] VITALS: BP 119/58
--- NOTE | 2020-02-26 19:45 | CONS ---
DATE OF CONSULTATION: 02/26/2020 REFERRING PHYSICIAN: Jairon Anderson MD REASON FOR CONSULTATION: Dizziness and poor balance. HISTORY OF PRESENT ILLNESS: The patient is a pleasant 74-year-old woman who presented to [facility] with complaints of abdominal pain for 5 days. She had had an episode of vomiting and had been very nauseated. She also had been experiencing headache and dizziness. According to the chart, the dizziness has been 3 days, but when I talked to the patient and family, they state she has been dizzy for a month. She describes the dizziness as a feeling like her heart may stop. I am not certain what this means. It is not entirely clear that she has a vertiginous dizziness or it is lightheaded. It seemed to be worse when she was having nausea and vomiting. She has had months of difficulty with her ears and does have tinnitus. In careful questioning, it does not seem that the dizziness is associated with tinnitus. She has had dizziness even while sitting, which did sound vertiginous at that time. It is somewhat difficult to have a clear history. She had 3 family members present in the room, which were very helpful. PAST MEDICAL HISTORY: 1. Congestive heart failure. 2. Gastroesophageal reflux disease. 3. High cholesterol. 4. Heart disease. 5. Hypertension. 6. Hypothyroidism. 7. Surgery to the left foot. 8. Gallstones. 9. Tremor. ALLERGIES: No known allergies to drugs. MEDICATIONS PRIOR TO ADMISSION: Acetaminophen/hydrocodone twice per day as needed, carvedilol 6.25 mg twice per day, dicyclomine 10 mg, furosemide 20 mg, levothyroxine 100 mcg, pantoprazole 40 mg, potassium chloride extended release 20 mEq, simvastatin 20 mg, and tramadol 50 mg every 4 hours as needed. FAMILY HISTORY: Diabetes. SOCIAL HISTORY: She does not smoke tobacco, drink alcohol or use recreational drugs. REVIEW OF SYSTEMS: She has headache. She has not had a change of vision. She has had loss of hearing. She has tinnitus, especially her left ear. She reports this seemed to occur after an ambulance drove by with loud sirens on. She has had no trouble with chewing or swallowing. She does not complain of shortness of breath or chest pain. She does have abdominal pain that radiates. She does not complain of fever or rash. She has not had numbness or tingling. She has had difficulty with balance and walking. She does not complain of excessive bruising, bleeding or swelling. PHYSICAL EXAMINATION: VITAL SIGNS: The blood pressure was 135/64, pulse 77, respirations 19, temperature 98.9 degrees Fahrenheit orally. Oximetry was 93% on room air. Weight was 69.7 kilograms, height 61 inches with a calculated body mass index of 29. GENERAL: She was alert, awake and cooperative. She spoke Sami, but speech was fluent and clear with her family. She had a good fund of knowledge. Attention and concentration appeared intact. She appeared well groomed and well nourished. NEUROLOGIC: Examination of the cranial nerves revealed visual yeh were full to confrontation. Extraocular movements were intact. The eyes were conjugate. Pursuit movements were smooth and saccadic eye movements were without dysmetria. Pupils were 3 mm and reactive. Funduscopic exam did not reveal papilledema, exudate or hemorrhage. Facial sensation was intact. The muscles of mastication and facial expression were symmetric. Hearing was intact to finger rub. The palate arched symmetrically and the tongue was midline. Sternocleidomastoid and trapezius were powerful. Muscle bulk and tone was normal. There was no arm or leg drift. Power was full and symmetric in the upper and lower extremities. She seemed to have some difficulty with dorsi and plantar flexion. Reflexes were diminished throughout. Toes were not upgoing. Coordination testing with [id number], [id number], fine motor and rapid alternating movements was fairly well performed. She did have a resting tremor, which was irregular, low amplitude and high frequency. Sensory exam was intact to pain, light touch, proprioception, graphesthesia, cold thermal and vibration. There was no extinction to double simultaneous stimulation. She was able to stand and bear weight. Her balance was very poor and she required the assist of 2. She was able to walk several steps with support. She could briefly stand on toes, but not heels. It seems that she could not even begin to do a Romberg stance. Auscultation of the carotid arteries did not reveal a bruit. HEART: Rhythm was regular without a murmur. EXTREMITIES: Peripheral pulses were symmetric. There was no edema or cyanosis. A Nylen-Barany test was performed and did not provoke any vertigo or nystagmus. LABORATORY RESULTS: CBC was performed 02/25/2020 revealing an elevated white blood cell count of 12.7. Hemoglobin, hematocrit and platelet counts were normal. Chemistries were performed 02/25/2020. The electrolytes were normal. BUN and creatinine were not elevated and GFR calculated at 97.2. Glucose was elevated at 119. Calcium, total protein and albumin were normal. Liver enzymes were not elevated except alkaline phosphatase of 151. Lipase was not elevated. BNP was not elevated. Troponin was not elevated. Urinalysis was performed 02/25/2020 and was negative. DIAGNOSTIC RESULTS: CT scan of the brain was performed without contrast on 02/25/2020. There was no acute intracranial finding. Chest x-ray was performed on 02/25/2020 revealing chronic appearing basilar predominant interstitial infiltrate, correlate for interstitial lung disease. Abdominal pelvic CAT scan was performed with IV contrast only on 02/25/2020. This revealed no acute abnormality. There was cholelithiasis. There was a compression fracture of T2 with mild height loss, which was likely old. Ultrasound of the abdomen was performed 02/25/2020. This revealed cholelithiasis. There was no sonographic evidence of acute cholecystitis. There was hepatic steatosis. IMPRESSION: The patient is a pleasant 74-year-old woman with abdominal pain as well as headache, vertigo and poor balance. In talking to the family and the patient, it seems that her difficulty with dizziness and balance has been progressive over the last month. The etiology of this is not entirely clear. I did a Nylen-Barany test, which did not reveal evidence of benign positional vertigo. I am concerned there may be a posterior fossa lesion that could potentially be missed on a CAT scan. RECOMMENDATIONS: I would like to arrange for an MRI brain to better evaluate for posterior fossa lesion such as stroke. I will also consult physical therapy to assess her walking to try to improve her safety and reduce her chance of falls. I will add some blood work looking for other etiologies for her difficulty with C-reactive protein, and sedimentation rate looking for inflammation, TSH as well as B12 level. I would anticipate if all of this can get done and she may be dismissed on 02/27/2020 if her gait is safe. I appreciate being involved in her care. ARGENTINA ENNIS MD DR: RODDY/jostin JOB#: [id number] / [id number] KARI Ivey MD
[2020-02-26] MEDS ORDERED: SIMVASTATIN 20 MG TABLET PO SCH (21:00)
[2020-02-26 23:30] VITALS: BP 101/51
[2020-02-27 03:50] VITALS: BP 105/54
[2020-02-27 07:00] VITALS: BP 104/68
[2020-02-27] MEDS ORDERED: POTASSIUM CHLORIDE 20 MEQ TABLET.ER. PO SCH (08:00)
--- NOTE | 2020-02-27 08:49 | PDOC ---
[employer] PROGRESS NOTE Date of Service DOS: DATE: 02/27/20 TIME: 08:40 Chief Complaint Chief Complaint Dizziness Cholelithiasis Consult to neurology MRI brain to better evaluate for posterior fossa lesion CVA PT to evaluate for safety ambulating at home TSH, CRP, sed rate, B12 Consulted general surgery, recommend outpatient follow-up. Discharge home if work-up is negative History of Present Illness History of Present Illness The patient is a pleasant 74-year-old female who presents with the above chief complaints. Basically, she has been having abdominal pain intermittently for months. It got worse over the past 5 days, rated at 7/10. She has associated nausea, worse with food, better with no food, described as irritating. She was admitted overnight for observation. This morning, we consulted Dr. Maria. At this point, no surgery is planned. Her labs are reasonable. Her white count is barely high at 12.7. She has got a slightly elevated alkaline phosphatase of 151. Clinically, she looks great. We are considering discharge this afternoon if no surgery is planned. 02/27/2020 Patient with history of dizziness over the past month concerning for posterior fossa lesion. She also has chronic abdominal pain secondary to cholelithiasis. Neurology consulted to help evaluate. MRI and several labs are pending. PT was ordered to assess patient safety to return home. Patient is anxious to go home today. If MRI negative for CVA, will discharge with walker and discontinue Bentyl. Vitals/I&O Vitals/I&O: Vital Signs Date Time Temp Pulse Resp B/P (MAP) Pulse Ox O2 Delivery O2 Flow Rate FiO2 02/27/20 07:00 98.0 67 18 104/68 (80) 92 Room Air 98.0 I & O 02/26/20 02/26/20 02/27/20 15:00 23:00 07:00 Intake Total 0 ml 400 ml 1920 ml Balance 0 ml 400 ml 1920 ml Physical Exam General: Alert, Oriented X3, Cooperative, No acute distress Heart: Regular rate, No murmurs Lungs: Clear Abdomen: Normal bowel sounds, Soft, Other (Tender to palpation left lower quadrant nontender in the right upper quadrant or epigastrium) Extremities: No edema Skin: No significant lesion Review of Systems Review of Systems: Dizziness. Denies fever, denies shortness of breath, denies chest pain. Assessment and Plan Assessmemt and Plan Problems Medical Problems: (1) Upper abdominal pain Status: Acute Comment Review of Relevant I have reviewed the following items ca (where applicable) has been applied. Medications: Current Medications Medications (Trade) Dose Ordered Sig/Kailey Route PRN Reason Start Time Stop Time Status Last Admin Dose Admin Carvedilol (Coreg) 6.25 mg BIDWMEALS PO 02/26/20 17:00 02/26/20 17:02 Dicyclomine HCl (Bentyl) 10 mg DAILY PO 02/26/20 12:00 02/26/20 13:11 Furosemide (Lasix) 20 mg DAILY PO 02/26/20 12:00 02/26/20 13:11 Levothyroxine Sodium (Synthroid) 100 mcg DAILYAC PO 02/26/20 12:00 02/26/20 13:10 Simvastatin (Zocor) 20 mg QHS PO 02/26/20 21:00 02/26/20 21:34 Pantoprazole Sodium (Protonix) 40 mg DAILYAC PO 02/26/20 12:00 02/26/20 13:10 Acetaminophen (Tylenol) 650 mg PRN Q6HRS PRN PO MILD PAIN / TEMP > 100.3'F 02/26/20 17:00 02/26/20 16:57 Justifications for Admission Other Justification RADHA HALLMAN MD Feb 27, 2020 08:49
[2020-02-27] MEDS: PANTOPRAZOLE 40 MG TABLET.DR. PO SCH (08:58)
[2020-02-27] MEDS: FUROSEMIDE 20 MG TABLET PO SCH (08:58)
[2020-02-27] MEDS: LEVOTHYROXINE 100 MCG TABLET PO SCH (08:59)
[2020-02-27] MEDS: DICYCLOMINE HCL 10 MG CAPSULE PO SCH (08:59)
[2020-02-27] MEDS: CARVEDILOL 6.25 MG TABLET. PO SCH (08:59)
--- NOTE | 2020-02-27 09:58 | PDOC ---
SURGICAL PROGRESS NOTE DATE: 02/27/20 TIME: 09:57 Subjective Patient tolerated diet without any difficulties Vital Signs Vital Signs Date Time Temp Pulse Resp B/P (MAP) Pulse Ox O2 Delivery O2 Flow Rate FiO2 02/27/20 08:59 67 104/68 02/27/20 07:00 98.0 18 92 Room Air 98.0 I&O Intake and Output 02/27/20 07:00 Intake Total 2320 ml Balance 2320 ml Intake Oral 1120 ml IV Total 600 ml Other 600 ml # Voids 2 PATIENT HAS A HINTON: No General: Alert, Oriented X3, Cooperative, No acute distress Abdomen: Normal bowel sounds, Soft, No tenderness Labs Laboratory Tests Test 02/25/20 22:05 02/25/20 23:14 White Blood Count 12.7 x10^3/uL (4.0-11.0) Red Blood Count 4.94 x10^6/uL (3.50-5.40) Hemoglobin 13.0 g/dL (12.0-15.5) Hematocrit 39.7 % (36.0-47.0) Mean Corpuscular Volume 80 fL (79-100) Mean Corpuscular Hemoglobin 26 pg (25-35) Mean Corpuscular Hemoglobin Concent 33 g/dL (31-37) Red Cell Distribution Width 14.8 % (11.5-14.5) Platelet Count 267 x10^3/uL (140-400) Neutrophils (%) (Auto) 71 % (31-73) Lymphocytes (%) (Auto) 17 % (24-48) Monocytes (%) (Auto) 9 % (0-9) Eosinophils (%) (Auto) 2 % (0-3) Basophils (%) (Auto) 1 % (0-3) Neutrophils # (Auto) 9.1 x10^3/uL (1.8-7.7) Lymphocytes # (Auto) 2.1 x10^3/uL (1.0-4.8) Monocytes # (Auto) 1.1 x10^3/uL (0.0-1.1) Eosinophils # (Auto) 0.3 x10^3/uL (0.0-0.7) Basophils # (Auto) 0.1 x10^3/uL (0.0-0.2) Sodium Level 141 mmol/L (136-145) Potassium Level 4.2 mmol/L (3.5-5.1) Chloride Level 104 mmol/L (98-107) Carbon Dioxide Level 27 mmol/L (21-32) Anion Gap 10 (6-14) Blood Urea Nitrogen 18 mg/dL (7-20) Creatinine 0.6 mg/dL (0.6-1.0) Estimated GFR (Cockcroft-Gault) 97.2 BUN/Creatinine Ratio 30 (6-20) Glucose Level 119 mg/dL (70-99) Calcium Level 8.9 mg/dL (8.5-10.1) Total Bilirubin 0.4 mg/dL (0.2-1.0) Aspartate Amino Transf (AST/SGOT) 20 U/L (15-37) Alanine Aminotransferase (ALT/SGPT) 20 U/L (14-59) Alkaline Phosphatase 151 U/L (46-116) Troponin I Quantitative < 0.017 ng/mL (0.000-0.055) UN-Tdo-K-Type Natriuretic Peptide 127 pg/mL (0-449) Total Protein 7.6 g/dL (6.4-8.2) Albumin 3.6 g/dL (3.4-5.0) Albumin/Globulin Ratio 0.9 (1.0-1.7) Lipase 123 U/L (73-393) Urine Collection Type Unknown Urine Color Yellow Urine Clarity Clear Urine pH 6.0 (<5.0-8.0) Urine Specific [place] 1.010 (1.000-1.030) Urine Protein Negative mg/dL (NEG-TRACE) Urine Glucose (UA) Negative mg/dL (NEG) Urine Ketones (Stick) Negative mg/dL (NEG) Urine Blood Negative (NEG) Urine Nitrite Negative (NEG) Urine Bilirubin Negative (NEG) Urine Urobilinogen Dipstick 0.2 mg/dL (0.2 mg/dL) Urine Leukocyte Esterase Negative (NEG) Urine RBC 0 /HPF (0-2) Urine WBC 0 /HPF (0-4) Urine Squamous Epithelial Cells Few /LPF Urine Bacteria 0 /HPF (0-FEW) Problem List Problems Medical Problems: (1) Upper abdominal pain Status: Acute Assessment/Plan Asymptomatic cholelithiasis no surgical plans currently may follow-up as outpatient Justicifation of Admission Dx: Justifications for Admission: Justification of Admission Dx: N/A ESTEPHANIA PLATA MD Feb 27, 2020 09:57
[2020-02-27 11:00] VITALS: BP 141/54
--- NOTE | 2020-02-27 14:20 | PDOC ---
PROGRESS NOTES Date of Service DATE: 02/27/20 TIME: 14:15 Assessment Problems Medical Problems: (1) Upper abdominal pain Status: Acute Vertigo, better, probably peripheral, but bedside examination is not helpful. Neurology-ordered labs negative or pending Mild essential tremor, chronic Plan MRI scan on hold due to technical problems, okay to discharge patient and have primary physician arrange this as an outpatient. Follow-up with me if no better in a few weeks. Discussed with patient and family. Subjective Feels better, wants to go home Objective Vital Signs Date Time Temp Pulse Resp B/P (MAP) Pulse Ox O2 Delivery O2 Flow Rate FiO2 02/27/20 11:00 98.5 67 18 141/54 (83) 91 Room Air 98.5 Intake and Output 02/27/20 07:00 Intake Total 2320 ml Balance 2320 ml Intake Oral 1120 ml IV Total 600 ml Other 600 ml # Voids 2 PHYSICAL EXAM Alert. Oriented to time, place and person. PERRL. EOMI. CN: no focal findings. No nystagmus Muscle tone: normal. Muscle strength: 5/5 DTR: 1+ Plantar reflex: flexor Gait: not examined in bed. Sensory exam: no abnormal findings. Mild postural tremor, no other cerebellar signs Review of Relevant I have reviewed the following items ca (where applicable) has been applied. Labs Laboratory Tests Test 02/25/20 22:05 02/25/20 23:14 02/27/20 11:30 White Blood Count 12.7 x10^3/uL (4.0-11.0) Red Blood Count 4.94 x10^6/uL (3.50-5.40) Hemoglobin 13.0 g/dL (12.0-15.5) Hematocrit 39.7 % (36.0-47.0) Mean Corpuscular Volume 80 fL (79-100) Mean Corpuscular Hemoglobin 26 pg (25-35) Mean Corpuscular Hemoglobin Concent 33 g/dL (31-37) Red Cell Distribution Width 14.8 % (11.5-14.5) Platelet Count 267 x10^3/uL (140-400) Neutrophils (%) (Auto) 71 % (31-73) Lymphocytes (%) (Auto) 17 % (24-48) Monocytes (%) (Auto) 9 % (0-9) Eosinophils (%) (Auto) 2 % (0-3) Basophils (%) (Auto) 1 % (0-3) Neutrophils # (Auto) 9.1 x10^3/uL (1.8-7.7) Lymphocytes # (Auto) 2.1 x10^3/uL (1.0-4.8) Monocytes # (Auto) 1.1 x10^3/uL (0.0-1.1) Eosinophils # (Auto) 0.3 x10^3/uL (0.0-0.7) Basophils # (Auto) 0.1 x10^3/uL (0.0-0.2) Sodium Level 141 mmol/L (136-145) Potassium Level 4.2 mmol/L (3.5-5.1) Chloride Level 104 mmol/L (98-107) Carbon Dioxide Level 27 mmol/L (21-32) Anion Gap 10 (6-14) Blood Urea Nitrogen 18 mg/dL (7-20) Creatinine 0.6 mg/dL (0.6-1.0) Estimated GFR (Cockcroft-Gault) 97.2 BUN/Creatinine Ratio 30 (6-20) Glucose Level 119 mg/dL (70-99) Calcium Level 8.9 mg/dL (8.5-10.1) Total Bilirubin 0.4 mg/dL (0.2-1.0) Aspartate Amino Transf (AST/SGOT) 20 U/L (15-37) Alanine Aminotransferase (ALT/SGPT) 20 U/L (14-59) Alkaline Phosphatase 151 U/L (46-116) Troponin I Quantitative < 0.017 ng/mL (0.000-0.055) OV-Wtm-K-Type Natriuretic Peptide 127 pg/mL (0-449) Total Protein 7.6 g/dL (6.4-8.2) Albumin 3.6 g/dL (3.4-5.0) Albumin/Globulin Ratio 0.9 (1.0-1.7) Lipase 123 U/L (73-393) Urine Collection Type Unknown Urine Color Yellow Urine Clarity Clear Urine pH 6.0 (<5.0-8.0) Urine Specific [place] 1.010 (1.000-1.030) Urine Protein Negative mg/dL (NEG-TRACE) Urine Glucose (UA) Negative mg/dL (NEG) Urine Ketones (Stick) Negative mg/dL (NEG) Urine Blood Negative (NEG) Urine Nitrite Negative (NEG) Urine Bilirubin Negative (NEG) Urine Urobilinogen Dipstick 0.2 mg/dL (0.2 mg/dL) Urine Leukocyte Esterase Negative (NEG) Urine RBC 0 /HPF (0-2) Urine WBC 0 /HPF (0-4) Urine Squamous Epithelial Cells Few /LPF Urine Bacteria 0 /HPF (0-FEW) C-Reactive Protein, Quantitative 5.2 mg/L (0-3.3) Thyroid Stimulating Hormone (TSH) 0.760 uIU/mL (0.358-3.74) Laboratory Tests Test 02/27/20 11:30 C-Reactive Protein, Quantitative 5.2 mg/L (0-3.3) Thyroid Stimulating Hormone (TSH) 0.760 uIU/mL (0.358-3.74) Medications Current Medications Metoclopramide HCl (Reglan Vial) 5 mg 1X ONCE IVP Last administered on 02/25/20at 22:13; Start 02/25/20 at 21:45; Stop 02/25/20 at 21:46; Status DC Sodium Chloride 500 ml @ 500 mls/hr 1X ONCE IV Last administered on 02/25/20at 22:13; Start 02/25/20 at 21:45; Stop 02/25/20 at 22:44; Status DC Iohexol (Omnipaque 300 Mg/ml) 75 ml 1X ONCE IV Last administered on 02/25/20at 22:46; Start 02/25/20 at 22:45; Stop 02/25/20 at 22:46; Status DC Info (CONTRAST GIVEN -- Rx MONITORING) 1 each PRN DAILY PRN MC SEE COMMENTS; Start 02/25/20 at 22:45; Stop 02/27/20 at 22:44 Ondansetron HCl (Zofran) 4 mg PRN Q8HRS PRN IV NAUSEA/VOMITING Last administered on 02/26/20at 01:19; Start 02/26/20 at 01:00; Stop 02/27/20 at 00:59; Status DC Morphine Sulfate (Morphine Sulfate) 2 mg PRN Q2HR PRN IV PAIN Last administered on 02/26/20at 01:20; Start 02/26/20 at 01:00; Stop 02/27/20 at 00:59; Status DC Sodium Chloride 1,000 ml @ 125 mls/hr Q8H IV Last administered on 02/26/20at 13:11; Start 02/26/20 at 01:00; Stop 02/27/20 at 00:59; Status DC Carvedilol (Coreg) 6.25 mg BIDWMEALS PO Last administered on 02/27/20at 08:59; Start 02/26/20 at 17:00 Dicyclomine HCl (Bentyl) 10 mg DAILY PO Last administered on 02/27/20at 08:59; Start 02/26/20 at 12:00 Furosemide (Lasix) 20 mg DAILY PO Last administered on 02/27/20at 08:58; Start 02/26/20 at 12:00 Levothyroxine Sodium (Synthroid) 100 mcg DAILYAC PO Last administered on 02/27/20at 08:59; Start 02/26/20 at 12:00 Simvastatin (Zocor) 20 mg QHS PO Last administered on 02/26/20at 21:34; Start 02/26/20 at 21:00 Pantoprazole Sodium (Protonix) 40 mg DAILYAC PO Last administered on 02/27/20at 08:58; Start 02/26/20 at 12:00 Potassium Chloride (Klor-Con) 20 meq DAILYWBKFT PO Last administered on 02/27/20at 08:58; Start 02/27/20 at 08:00 Acetaminophen (Tylenol) 650 mg PRN Q6HRS PRN PO MILD PAIN / TEMP > 100.3'F Last administered on 02/26/20at 16:57; Start 02/26/20 at 17:00 Active Scripts Active Reported Protonix (Pantoprazole Sodium) 20 Mg Tablet.dr 40 Mg PO DAILY Furosemide 20 Mg Tablet 1 Tab PO DAILY Simvastatin 20 Mg Tablet 1 Tab PO QHS [place] 5-325 Tablet (Acetaminophen/Hydrocodone Bitart) 1 Each Tablet 1 Tab PO BID Carvedilol (Carvedilol) 6.25 Mg Tablet 6.25 Mg PO BID Dicyclomine Hcl 10 Mg Capsule 10 Mg PO DAILY Levothyroxine Sodium 100 Mcg Tablet 100 Mcg PO DAILYAC K-Tab ER (Potassium Chloride) 20 Meq Tablet.er 20 Meq PO DAILY Tramadol Hcl 50 Mg Tablet 50 Mg PO DAILY PRN Tramadol Hcl 50 Mg Tablet 50 Mg PO PRN Q4HRS PRN Vitals/I & O Vital Sign - Last 24 Hours 02/26/20 02/26/20 02/26/20 02/26/20 15:00 17:02 18:16 20:05 Temp 98.9 98.9 98.9 98.9 Pulse 74 77 72 Resp 19 18 B/P (MAP) 107/59 (75) 135/64 119/58 (78) Pulse Ox 93 93 O2 Delivery Room Air Room Air Room Air 02/26/20 02/27/20 02/27/20 02/27/20 23:30 03:50 07:00 08:05 Temp 98.7 98.0 98.0 98.7 98.0 98.0 Pulse 69 18 67 Resp 18 18 18 B/P (MAP) 101/51 (68) 105/54 (71) 104/68 (80) Pulse Ox 94 95 92 O2 Delivery Room Air Room Air Room Air Room Air 02/27/20 02/27/20 08:59 11:00 Temp 98.5 98.5 Pulse 67 67 Resp 18 B/P (MAP) 104/68 141/54 (83) Pulse Ox 91 O2 Delivery Room Air Intake and Output 02/26/20 02/26/20 02/27/20 15:00 23:00 07:00 Intake Total 0 ml 400 ml 1920 ml Balance 0 ml 400 ml 1920 ml Justicifation of Admission Dx: Justifications for Admission: Justification of Admission Dx: N/A KARI DONALDSON MD Feb 27, 2020 14:20
[2020-02-27 15:00] VITALS: BP 117/57
--- NOTE | 2020-02-27 15:45 | PDOC3 ---
Discharge Summary Visit Information Date of Admission: Feb 26, 2020 Date of Discharge: Feb 27, 2020 Final Diagnosis Problems Medical Problems: (1) Upper abdominal pain Status: Acute Brief Hospital Course Allergies Allergies Coded Allergies Type Severity Reaction Last Updated Verified No Known Drug Allergies 06/18/18 No Vital Signs Vital Signs Date Time Temp Pulse Resp B/P (MAP) Pulse Ox O2 Delivery O2 Flow Rate FiO2 02/27/20 15:00 98.7 69 18 117/57 (77) 93 Room Air 98.7 Lab Results Laboratory Tests Test 02/25/20 22:05 02/25/20 23:14 02/27/20 11:30 White Blood Count 12.7 x10^3/uL (4.0-11.0) Red Blood Count 4.94 x10^6/uL (3.50-5.40) Hemoglobin 13.0 g/dL (12.0-15.5) Hematocrit 39.7 % (36.0-47.0) Mean Corpuscular Volume 80 fL (79-100) Mean Corpuscular Hemoglobin 26 pg (25-35) Mean Corpuscular Hemoglobin Concent 33 g/dL (31-37) Red Cell Distribution Width 14.8 % (11.5-14.5) Platelet Count 267 x10^3/uL (140-400) Neutrophils (%) (Auto) 71 % (31-73) Lymphocytes (%) (Auto) 17 % (24-48) Monocytes (%) (Auto) 9 % (0-9) Eosinophils (%) (Auto) 2 % (0-3) Basophils (%) (Auto) 1 % (0-3) Neutrophils # (Auto) 9.1 x10^3/uL (1.8-7.7) Lymphocytes # (Auto) 2.1 x10^3/uL (1.0-4.8) Monocytes # (Auto) 1.1 x10^3/uL (0.0-1.1) Eosinophils # (Auto) 0.3 x10^3/uL (0.0-0.7) Basophils # (Auto) 0.1 x10^3/uL (0.0-0.2) Sodium Level 141 mmol/L (136-145) Potassium Level 4.2 mmol/L (3.5-5.1) Chloride Level 104 mmol/L (98-107) Carbon Dioxide Level 27 mmol/L (21-32) Anion Gap 10 (6-14) Blood Urea Nitrogen 18 mg/dL (7-20) Creatinine 0.6 mg/dL (0.6-1.0) Estimated GFR (Cockcroft-Gault) 97.2 BUN/Creatinine Ratio 30 (6-20) Glucose Level 119 mg/dL (70-99) Calcium Level 8.9 mg/dL (8.5-10.1) Total Bilirubin 0.4 mg/dL (0.2-1.0) Aspartate Amino Transf (AST/SGOT) 20 U/L (15-37) Alanine Aminotransferase (ALT/SGPT) 20 U/L (14-59) Alkaline Phosphatase 151 U/L (46-116) Troponin I Quantitative < 0.017 ng/mL (0.000-0.055) BC-Wty-U-Type Natriuretic Peptide 127 pg/mL (0-449) Total Protein 7.6 g/dL (6.4-8.2) Albumin 3.6 g/dL (3.4-5.0) Albumin/Globulin Ratio 0.9 (1.0-1.7) Lipase 123 U/L (73-393) Urine Collection Type Unknown Urine Color Yellow Urine Clarity Clear Urine pH 6.0 (<5.0-8.0) Urine Specific [place] 1.010 (1.000-1.030) Urine Protein Negative mg/dL (NEG-TRACE) Urine Glucose (UA) Negative mg/dL (NEG) Urine Ketones (Stick) Negative mg/dL (NEG) Urine Blood Negative (NEG) Urine Nitrite Negative (NEG) Urine Bilirubin Negative (NEG) Urine Urobilinogen Dipstick 0.2 mg/dL (0.2 mg/dL) Urine Leukocyte Esterase Negative (NEG) Urine RBC 0 /HPF (0-2) Urine WBC 0 /HPF (0-4) Urine Squamous Epithelial Cells Few /LPF Urine Bacteria 0 /HPF (0-FEW) C-Reactive Protein, Quantitative 5.2 mg/L (0-3.3) Thyroid Stimulating Hormone (TSH) 0.760 uIU/mL (0.358-3.74) Laboratory Tests Test 02/27/20 11:30 C-Reactive Protein, Quantitative 5.2 mg/L (0-3.3) Thyroid Stimulating Hormone (TSH) 0.760 uIU/mL (0.358-3.74) Brief Hospital Course Ms. Escalona is a 74 old female who presented with cholelithiasis, vertigo consultation was placed to general surgery recommended outpatient follow-up. Consultation was placed to neurology, likely peripheral vertigo. MRI scan is on hold due to technical problems, she was okay to discharge and have a PCP arrange for outpatient MRI. Recommended to follow-up with neurology outpatient if no improvement. Discharge Information Condition at Discharge: Improved Follow Up: Weeks Disposition/Orders: D/C to Home Scheduled Carvedilol (Carvedilol ) 6.25 Mg Tablet, 6.25 MG PO BID for htn, (Reported) Entered as Reported by: KALEN ARANA on 10/13/131642 Last Action: Continued on 02/26/201133 by HARSHA HERNANDEZ Dicyclomine Hcl (Dicyclomine Hcl) 10 Mg Capsule, 10 MG PO DAILY, (Reported) Entered as Reported by: KALEN ARANA on 10/13/131642 Last Action: Continued on 02/26/201133 by HARSHA HERNANDEZ Furosemide (Furosemide) 20 Mg Tablet, 1 TAB PO DAILY for diuretic, #90 Ref 1 (Reported) Entered as Reported by: MICKY SHIELDS on 05/22/181756 Last Action: Continued on 02/26/201133 by HARSHA HERNANDEZ Hydrocodone/Apap 5-325 ([place] 5-325 Tablet) 1 Each Tablet, 1 TAB PO BID for pain, #60 (Reported) Entered as Reported by: MICKY SHIELDS on 05/22/181756 Levothyroxine Sodium (Levothyroxine Sodium) 100 Mcg Tablet, 100 MCG PO DAILYAC for THYROID SUPPLEMENT, #30 Ref 0 (Reported) Entered as Reported by: KALEN ARANA on 10/13/131640 Last Action: Continued on 02/26/201133 by HARSHA HERNANDEZ Pantoprazole Sodium (Protonix) 20 Mg Tablet.dr, 40 MG PO DAILY for GERD, (Reported) Entered as Reported by: MICKY SHIELDS on 05/22/181756 Last Action: Converted on 02/26/201133 by HARSHA HERNANDEZ Potassium Chloride (K-Tab ER) 20 Meq Tablet.er, 20 MEQ PO DAILY, (Reported) Entered as Reported by: KALEN ARANA on 10/13/13 1641 Last Action: Converted on 02/26/20 1134 by HARSHA HERNANDEZ Simvastatin (Simvastatin) 20 Mg Tablet, 1 TAB PO QHS for cholesterol, #30 Ref 5 (Reported) Entered as Reported by: MICKY SHIELDS on 05/22/18 1757 Last Action: Continued on 02/26/20 1134 by HARSHA HERNANDEZ Scheduled PRN Tramadol Hcl (Tramadol Hcl) 50 Mg Tablet, 50 MG PO PRN Q4HRS PRN for PAIN, Ref 0 (Reported) Entered as Reported by: KALEN ARANA on 10/13/13 1639 Tramadol Hcl (Tramadol Hcl) 50 Mg Tablet, 50 MG PO DAILY PRN for PAIN, Ref 0 (Reported) Entered as Reported by: KALEN ARANA on 10/13/13 1639 Justicifation of Admission Dx: Justifications for Admission: Justification of Admission Dx: N/A RADHA HALLMAN MD Feb 27, 2020 15:45
--- NOTE | 2020-02-27 15:57 | NUR ---
Patient discharged today. Prescription given to patient. Patient verbalized understanding of discharge instruction
--- NOTE | 2020-03-07 12:07 | NUR ---
Stop times for NaCl started at 0321 on 02/25 stopped at 1310 NaCl started at 1311 on 02/25 stopped at 2310
== END 2020-02-27 16:18 | disposition home or self-care (01) ==
LOC: ER 21:06 → 4 NORTH 02-26 00:47
PROVIDERS: ADMIT Family Medicine; ATTEND Family Medicine
DX: K80.20 Calculus of gallbladder without cholecystitis without obstruction (principal); M48.54XA Collapsed vertebra, not elsewhere classified, thoracic region, initial encounter for fracture; K76.0 Fatty (change of) liver, not elsewhere classified; I11.0 Hypertensive heart disease with heart failure; I50.9 Heart failure, unspecified; E03.9 Hypothyroidism, unspecified; E78.00 Pure hypercholesterolemia, unspecified; R51.9 Headache, unspecified; R42 Dizziness and giddiness; D72.829 Elevated white blood cell count, unspecified; H93.12 Tinnitus, left ear; K21.9 Gastro-esophageal reflux disease without esophagitis; R25.1 Tremor, unspecified
CPT/HCPCS: 36415; 70450; 71045; 74177; 76705; 80053; 81001; 82607; 83690; 83880; 84443; 84484; 85025; 86140; 93005; 96361; 96374; 96375; 97110; 97162; 99285; G0378; J2270; J2405; J2765; J7030; J7040; Q9967; G0379